=== PATIENT | male | born 1950 | race Caucasian/White ===

== ENCOUNTER 2020-05-08 13:01 | Inpatient (IN) | payer MEDICARE, SELFPAY ==
--- NOTE | ~2020-05-08 | XR_ITS ---
EXAMINATION: XR chest 2V EXAM DATE: 05/08/2020 14:50 INDICATION: Shortness of breath and weakness. TECHNIQUE: Frontal and lateral projections of the chest obtained and reviewed. Comparison is made to prior examination from 07/01/2007. FINDINGS: There is moderate amount of abnormal reticulation, could be edema if acute, interstitial rob ng disease of chronic. Infection also not excludable. Appearance is new compared to 2007. No pneumoth orax or pleural effusion. Cardiomediastinal silhouette is normal. IMPRESSION: Abnormal reticulation, could be edema and/or interstitial lung disease. Infection not ex cludable. Reviewed, dictated and finalized at location A. L [employer]ODU[employer] FAB[employer]IC[employer]SEMBLER IMPRESSION: Abnormal reticulation, could be edema and/or interstitial lung dis ease. Infection not excludable.
[2020-05-08 13:08] VITALS: BP 148/70; PULSE 64; RESP 22; TEMP 36.6; O2SAT 91
--- NOTE | 2020-05-08 15:08 | ED.SOB ---
HPI - SOB/Dyspnea General Chief Complaint: Shortness of Breath/Dyspnea Stated Complaint: PATTERSON, Cough/body aches Time Seen by Provider: 05/08/20 14:49 History of Present Illness HPI Narrative: Cough, SOB and headache for about 10 days. Negative COVID test 5 days ago. Symptoms not improving. He is a daily smoker. No known history of respiratory disease. Related Data Home Medications Medication Instructions Recorded Confirmed albuterol sulfate [ProAir HFA] 2 puff INHALATION QID PRN 05/08/20 05/08/20 benzonatate 100 mg PO BID PRN 05/08/20 05/08/20 cefprozil 500 mg PO BID 05/08/20 05/08/20 propranolol 80 mg PO BID 05/08/20 05/08/20 Allergies Allergy/AdvReac Type Severity Reaction Status Date / Time No Known Allergies Allergy NONE Verified 05/08/20 20:07 Review of Systems Review of Systems: All systems reviewed & are unremarkable except as noted in HPI and below Constitutional: Constitutional: Reports fatigue, Denies fever(s) and Reports weakness Cardiovascular: Cardiovascular: Reports chest pain Respiratory: Respiratory: Reports cough and Reports dyspnea Gastrointestinal: Gastrointestinal: Denies abdominal pain Comments: loss of appetite Genitourinary: Genitourinary: Denies dysuria Neurologic: Denies confusion and Reports weakness PMFSH Past Medical History Medical History Amputation of digit of left hand HTN (hypertension) Family History Family History Sibling Leukemia Social History Social History Smoking packs per day: 1 Smoking cigarettes per day: 20.0 Years smoked: 45 Smoking pack-years: 45.00 Smoking status: Heavy tobacco smoker Tobacco type: cigarettes Alcohol intake: current Drinks per week: 1 Substance use: never Substance use type: does not use Gender identity (if verbalized by the patient): Male Spiritual care concerns: No Exam Const: General: no acute distress, alert and ill appearing Nutritional Appearance: well nourished Orientation/consciousness: patient oriented x3 HENMT: Head: normal to inspection Neck: Neck: normal visual inspection Resp: Effort & Inspection: tachypneic Auscultation: rhonchi Cardio: Rate: regular rate Rhythm: regular rhythm GI: GI Palp: Yes Soft to palpation and No Tenderness to palpation present (GI) Skin: General skin exam: normal color Neuro: General: patient oriented x3 and moves all extremities Speech: normal speech Extrem: General: normal to inspection and no edema Course Vital Signs Vital signs: Vital Signs Temperature 36.6 C 05/08/20 13:08 Pulse Rate 64 05/08/20 13:08 Respiratory Rate 22 H 05/08/20 13:08 Blood Pressure 148/70 H 05/08/20 13:08 Pulse Oximetry 91 05/08/20 13:08 Temperature 36.4 C 05/10/20 06:00 Pulse Rate 60 05/10/20 12:26 Respiratory Rate 18 05/10/20 12:26 Blood Pressure 135/51 L 05/10/20 06:00 Pulse Oximetry 98 05/10/20 09:32 MDM - SOB/Dyspnea MDM Narrative Medical decision making narrative: Infiltrate on x-ray. Intermittent hypoxia. Significant elevation in WBCs. He will need admission for respiratory failure and pneumonia. Differential Diagnosis Differential diagnosis: Likely acute exacerbation of chronic obstructive airways disease and community acquired pneumonia Medical Records Attestation: I reviewed the patient's medical records. Lab Data Attestation: I reviewed the patient's lab results. Result diagrams: 05/10/20 06:02 05/10/20 06:02 Labs: Lab Results 05/08/20 05/08/20 05/08/20 Range/Units 15:38 15:38 15:38 WBC 15.1 H (4.5-10.0) K/mm3 RBC 4.72 (4.6-6.20) M/mm3 Hgb 17.0 (14.0-18.0) g/dL Hct 49.8 (42.0-52.0) % MCV 105.5 H (80-100) fl MCH 36.0 H (26-34) pg MCHC 34.1 (32-36) g/dl RDW 13.8 (11.5-14.5)
[2020-05-08] MEDS: ALBUTEROL SULFATE (*SP) AEROSOL 1 PUFF 6 PUFF INHALATION (15:25)
--- NOTE | 2020-05-08 15:32 | PC.NURSE ---
Addendum entered by Stacey Lopez RN 05/08/20 16:14: respiratory now at bedside for MDI. Original Note: patient resting on stretcher. here with cough and fatigue. SL inserted. 2nd set of blood cultures drawn and lactic.
[2020-05-08 15:46] LABS: Basophils Absolute Auto 0.1 K/mm3 (0.0-0.1); Basophils Percent Auto 0.9 % (0.2-1.2); Eosinophils Absolute Auto 3.7 K/mm3 (0-0.3); Eosinophils Percent Auto 24.7 % (0-4.4); Hematocrit 49.8 % (42.0-52.0); Immature Granulocyte Absolute 0.17 K/mm3 (0.00-0.031); Immature Granulocyte Percent A 1.1 % (0-0.5); Lymphocytes Absolute Auto 2.43 K/mm3 (0.9-3.2); Lymphocytes Percent Auto 16.1 % (18.3-44.2); Mean Corpuscular HGB Conc 34.1 g/dl (32-36); Mean Corpuscular Volume 105.5 fl (80-100); Monocytes Absolute Auto 0.9 K/mm3 (0.1-0.6); Monocytes Percent Auto 6.1 % (2.6-8.5); Neutrophils Absolute Auto 7.7 K/mm3 (1.3-6.7); Neutrophils Percent Auto 51.1 % (45.5-73.1); Platelet Count Result 398 k/mm3 (150-375); Red Blood Count 4.72 M/mm3 (4.6-6.20); Red Cell Distribution Width 13.8 % (11.5-14.5); White Blood Count 15.1 K/mm3 (4.5-10.0)
[2020-05-08 15:59] LABS: Alanine Aminotransferase 109 U/L (4-50); Albumin Level 3.4 g/dL (3.5-5.1); Alkaline Phosphatase 178 U/L (38-126); Anion Gap 6 mmol/L (8-16); Aspartate Amino Transferase 48 U/L (17-59); Bilirubin,Total 0.6 mg/dL (0.2-1.3); Blood Urea Nitrogen 17 mg/dL (9-20); CRP 7.7 mg/dL (<1.0); Calcium 9.2 mg/dL (8.4-10.2); Carbon Dioxide 29 mmol/L (22-30); Chloride 101 mmol/L (98-107); Estimated CRCL calculation 81 ml/min; Estimated Glomerular Filt Rate > 60; Glucose 126 mg/dL (75-110); Potassium 4.5 mmol/L (3.4-5.0); Sodium 136 mmol/L (137-145)
[2020-05-08 16:00] VITALS: PULSE 64; RESP 22; O2SAT 91
[2020-05-08 16:02] LABS: Prothrombin Time 14.1 Seconds (11.1-14.7)
[2020-05-08 16:03] LABS: Partial Thromboplastin Time 26.3 SECONDS (22.3-36.8)
[2020-05-08 16:09] LABS: NT Pro B Type Natriuretic Pept 2330 PG/ML (5-100); Troponin I < 0.012 ng/mL (0.000-0.034)
[2020-05-08 17:21] VITALS: BP 147/57; PULSE 61; RESP 20; O2SAT 91
[2020-05-08] MEDS: FUROSEMIDE INJ 40 MG/4 ML VIAL IV PUSH (17:49)
[2020-05-08 19:45] VITALS: BP 144/73; PULSE 58; RESP 20; TEMP 36.4; O2SAT 92; BMI 31.0
--- NOTE | 2020-05-08 21:17 | PM.IMHP ---
H&P: HPI History of Present Illness Date/Time: 05/08/20 21:17 Chief complaint: Acute respiratory failure with hypoxia Narrative: This is a pleasant 69-year-old obese male with known past medical history of hypertension who presented to the hospital with poorly productive cough, increased shortness of breath, and diffuse headache for about 10 days now. He mentions that today decided come to the hospital because shortness of breath was very severe and he was starting to experience discomfort on both sides of his ribcage with his cough. The patient apparently tested negative for COVID about 5 days ago. He is known to smoke 1 pack of cigarettes daily. On further questioning tonight he denies any recent fevers, chills, nausea, vomiting, chest pain, abdominal discomfort, diarrhea, dysuria, hematuria, or rectal bleeding. Routine labs were obtained in the emergency room and demonstrated elevated white count of 15,100. Chest x-ray revealed abnormal reticulation. the patient was swabbed for domingo virus and admitted to the hospital for acute respiratory failure although he has not required any supplemental oxygen at all. Antibiotics and bronchodilators have been ordered for the patient. No other complaints tonight. Review of Systems Review of Systems: All systems reviewed & are unremarkable except as noted in HPI and below PMFSH Past Medical History Medical History Amputation of digit of left hand HTN (hypertension) Family History Family History Sibling Leukemia Social History Social History Smoking packs per day: 1 Smoking cigarettes per day: 20.0 Years smoked: 45 Smoking pack-years: 45.00 Smoking status: Heavy tobacco smoker Tobacco type: cigarettes Alcohol intake: current Drinks per week: 1 Substance use: never Substance use type: does not use Gender identity (if verbalized by the patient): Male Spiritual care concerns: No Comments past surgical hx - amputation of left hand index and middle digit. Meds Home Medications and Allergies Home Medications Medication Instructions Recorded Confirmed Type albuterol sulfate [ProAir HFA] 2 puff INHALATION QID PRN 05/08/20 05/08/20 History benzonatate 100 mg PO BID PRN 05/08/20 05/08/20 History cefprozil 500 mg PO BID 05/08/20 05/08/20 History propranolol 80 mg PO BID 05/08/20 05/08/20 History Allergies Allergy/AdvReac Type Severity Reaction Status Date / Time No Known Allergies Allergy NONE Verified 05/08/20 20:07 Vital Signs Vital Signs - 24 hr 05/08/20 13:08 05/08/20 16:00 05/08/20 17:21 Temperature 36.6 C Pulse Rate 64 64 61 Respiratory Rate 22 H 22 H 20 Blood Pressure 148/70 H 147/57 H Pulse Oximetry 91 91 91 Exam Const: General: cooperative, no acute distress, alert and awake Nutritional Appearance: obese Orientation/consciousness: patient oriented x3 HENMT: Head: normal to inspection General nose exam: Normal external nose present Face and sinus: normal facial exam Mouth: Yes Normal oral and palatal mucosa present and Yes oropharynx normal Eyes: Pupils: Equal, round and reactive pupils present EOM: EOMs intact bilaterally Neck: Neck: supple and no JVD Thyroid: thyroid normal Lymphatic: lymphadenopathy not noted Resp: Effort & Inspection: normal respiratory effort Auscultation: rhonchi ( scattered) Cardio: Rate: regular rate Rhythm: regular rhythm Heart sounds: no murmurs GI: Inspection: normal to inspection Auscultation: normal bowel sounds Skin: General skin exam: normal color and no rashes or lesions noted Neuro: General: patient oriented x3 Cranial nerves: Yes CN's II-XII intact bilaterally and Yes Equal, round and reactive pupils present Speech: normal speech Motor exam (neuro): 5/5 motor strength present throughout Sensory Exam
[2020-05-08] MEDS: methylPREDNISolone SOD SUCC 125 MG VIAL 60 MG IV PUSH (22:05)
[2020-05-08 22:29] LABS: Influenza Control Positive
[2020-05-09] VITALS (11 sets, daily range): BP systolic 121–150; BP diastolic 52–63; PULSE 49–67; RESP 16–20; TEMP 35.9–36.4; O2SAT 92–99
[2020-05-09] MEDS: methylPREDNISolone SOD SUCC 125 MG VIAL 60 MG IV PUSH ×2 (05:00→12:16)
[2020-05-09 06:50] LABS: Basophils Percent Auto 0.3 % (0.2-1.2); Eosinophils Absolute Auto 0.1 K/mm3 (0-0.3); Eosinophils Percent Auto 0.7 % (0-4.4); Hematocrit 43.8 % (42.0-52.0); Hemoglobin 14.9 g/dL (14.0-18.0); Immature Granulocyte Absolute 0.12 K/mm3 (0.00-0.031); Lymphocytes Absolute Auto 2.29 K/mm3 (0.9-3.2); Lymphocytes Percent Auto 18.9 % (18.3-44.2); Mean Corpuscular Hemoglobin 35.4 pg (26-34); Mean Platelet Volume 10.3 fl (7.4-10.4); Monocytes Absolute Auto 0.3 K/mm3 (0.1-0.6); Monocytes Percent Auto 2.5 % (2.6-8.5); Neutrophils Absolute Auto 9.3 K/mm3 (1.3-6.7); Neutrophils Percent Auto 76.6 % (45.5-73.1); Platelet Count Result 414 k/mm3 (150-375); Red Blood Count 4.21 M/mm3 (4.6-6.20); Red Cell Distribution Width 13.3 % (11.5-14.5); White Blood Count 12.1 K/mm3 (4.5-10.0)
[2020-05-09 07:44] LABS: Anion Gap 5 mmol/L (8-16); Blood Urea Nitrogen 22 mg/dL (9-20); Calcium 8.8 mg/dL (8.4-10.2); Carbon Dioxide 31 mmol/L (22-30); Chloride 99 mmol/L (98-107); Estimated CRCL calculation 92 ml/min; Estimated Glomerular Filt Rate > 60; Glucose 188 mg/dL (75-110); Magnesium 2.2 mg/dL (1.6-2.3); Potassium 4.6 mmol/L (3.4-5.0); Sodium 135 mmol/L (137-145)
[2020-05-09] MEDS: ALBUTEROL SULFATE (*SP) AEROSOL 1 PUFF 2 PUFF INHALATION (09:39)
--- NOTE | 2020-05-09 13:10 | PM.IMPN ---
Progress Note: A&P Assessment and Plan (1) Pneumonia: Qualifiers: Pneumonia type: due to unspecified organism Laterality: bilateral Lung location: lower lobe of lung Qualified Code(s): J18.9 - Pneumonia, unspecified organism Code(s): J18.9 - Pneumonia, unspecified organism Status: Acute Assessment and Plan: Suspected bacterial pneumonia, COVID negative. Continue antibiotics with azithromycin and Rocephin. Continue supportive care with Tylenol for fevers, supplemental oxygen as needed, Mucinex. Incentive spirometry. (2) Suspected 2019 novel coronavirus infection: Code(s): Z20.828 - Contact with and (suspected) exposure to other viral communicable diseases Status: Ruled-out Assessment and Plan: Ruled out. COVID negative. Discontinue droplet isolation. (3) Leukocytosis: Qualifiers: Leukocytosis type: unspecified Qualified Code(s): D72.829 - Elevated white blood cell count, unspecified Code(s): D72.829 - Elevated white blood cell count, unspecified Status: Acute Assessment and Plan: Suspect secondary to respiratory infection. Improving today. Will monitor. (4) HTN (hypertension): Qualifiers: Hypertension type: unspecified Qualified Code(s): I10 - Essential (primary) hypertension Code(s): I10 - Essential (primary) hypertension Status: Chronic Assessment and Plan: Blood pressure is variable, last 143/53. Home propranolol held due to sinus bradycardia with which he is asymptomatic. Monitor BP and adjust treatment as needed. (5) Tobacco dependence: Code(s): F17.200 - Nicotine dependence, unspecified, uncomplicated Status: Chronic Assessment and Plan: Smoking cessation advised. Subjective Date/time seen: 05/09/20 1030 Interval history: Mr. Jaffe is a 69yo M admitted for pneumonia. He reports feeling better than when he came in. Still mildly short of breath but improved from days prior. He has a bit of a nonproductive cough. He denies chest pain. Not much of an appetite but tolerated some breakfast without nausea or vomiting. Review of Systems Review of Systems: All systems reviewed & are unremarkable except as noted in HPI and below Exam Narrative: Exam Narrative: General: Male resting comfortably supine in bed in no acute distress. HEENT: Normocephalic, EOMI, oral mucosa moist. Cardiovascular: Rate and rhythm are regular. Telemetry review shows intermittent sinus bradycardia with rates in high 40s bpm. Respiratory: Decreased breath sounds bilaterally. Respirations even and nonlabored. Tolerating room air. Abdomen: Soft, non-tender, non-distended, bowel sounds present. Extremities: Peripheral pulses intact. No edema. Neuro: No focal neurological deficits. Speech is clear. Objective Data Vital Signs Vital Signs: Last Vital Signs Temp 97.6 F 05/09/20 12:00 Pulse 61 05/09/20 12:00 Resp 16 05/09/20 12:00 BP 143/53 H 05/09/20 12:00 Pulse Ox 99 05/09/20 12:00 Intake/Output Intake/Output: Intake & Output 05/06/20 05/07/20 05/08/20 05/09/20 23:59 23:59 23:59 23:59 Intake Total 300 120 Balance 300 120 Meds/Results Medications: Active Medications Generic Name Dose Route Start Last Admin Trade Name Freq PRN Reason Stop Dose Admin Acetaminophen 650 mg 05/08/20 21:25 Acetaminophen 325 Mg Tablet PO Q4H PRN Mild Pain (1-3) or Fever Albuterol 2 puff 05/09/20 09:46 Albuterol Sulfate (*Sp) Inhaler INHALATION QIDRT PRN Shortness Of Breath Albuterol 2 puff 05/09/20 12:00 Albuterol Sulfate (*Sp) Inhaler INHALATION QIDRT [facility] Guaifenesin/Dextromethorphan 5 ml 05/09/20 04:11 Sydniefen
[2020-05-09] MEDS: ALBUTEROL SULFATE (*SP) INHALER 2 PUFF INHALATION ×2 (13:38→21:01)
[2020-05-09 14:03] LABS: SARS-CoV-2 RNA PCR Negative
[2020-05-09] MEDS: FUROSEMIDE INJ 40 MG/4 ML VIAL IV PUSH (16:46)
--- NOTE | 2020-05-09 17:47 | PCRCNOTE ---
Window of time for administration has passed. See next scheduled administration.
[2020-05-09] MEDS: guaiFENesin 600 MG/DEXTROMETHORPHAN 30 MG SR TAB 12 HR 1 TAB PO (21:25)
[2020-05-10] VITALS (8 sets, daily range): BP systolic 135; BP diastolic 51; PULSE 45–64; RESP 16–18; TEMP 36.4; O2SAT 97–98
[2020-05-10 06:45] LABS: Basophils Absolute Auto 0.1 K/mm3 (0.0-0.1); Basophils Percent Auto 0.3 % (0.2-1.2); Eosinophils Absolute Auto 0.4 K/mm3 (0-0.3); Hematocrit 43.1 % (42.0-52.0); Hemoglobin 14.6 g/dL (14.0-18.0); Immature Granulocyte Absolute 0.24 K/mm3 (0.00-0.031); Immature Granulocyte Percent A 1.1 % (0-0.5); Lymphocytes Absolute Auto 2.77 K/mm3 (0.9-3.2); Lymphocytes Percent Auto 12.8 % (18.3-44.2); Mean Corpuscular HGB Conc 33.9 g/dl (32-36); Mean Corpuscular Hemoglobin 34.8 pg (26-34); Mean Corpuscular Volume 102.9 fl (80-100); Mean Platelet Volume 10.3 fl (7.4-10.4); Monocytes Absolute Auto 1.5 K/mm3 (0.1-0.6); Monocytes Percent Auto 7.1 % (2.6-8.5); Neutrophils Absolute Auto 16.7 K/mm3 (1.3-6.7); Neutrophils Percent Auto 76.7 % (45.5-73.1); Platelet Count Result 450 k/mm3 (150-375); Red Blood Count 4.19 M/mm3 (4.6-6.20); Red Cell Distribution Width 13.3 % (11.5-14.5); White Blood Count 21.7 K/mm3 (4.5-10.0)
[2020-05-10 06:52] LABS: Hemoglobin A1C 5.8 % (<5.7)
[2020-05-10 06:55] LABS: Alanine Aminotransferase 80 U/L (4-50); Albumin Level 3.1 g/dL (3.5-5.1); Alkaline Phosphatase 126 U/L (38-126); Anion Gap 5 mmol/L (8-16); Aspartate Amino Transferase 47 U/L (17-59); Bilirubin,Total 0.3 mg/dL (0.2-1.3); Blood Urea Nitrogen 28 mg/dL (9-20); Calcium 9.2 mg/dL (8.4-10.2); Carbon Dioxide 32 mmol/L (22-30); Chloride 100 mmol/L (98-107); Estimated CRCL calculation 82 ml/min; Estimated Glomerular Filt Rate > 60; Glucose 157 mg/dL (75-110); Magnesium 2.4 mg/dL (1.6-2.3); Potassium 4.4 mmol/L (3.4-5.0); Sodium 137 mmol/L (137-145)
[2020-05-10] MEDS: ALBUTEROL SULFATE (*SP) INHALER 2 PUFF INHALATION ×2 (08:56→12:26)
[2020-05-10] MEDS: guaiFENesin 600 MG/DEXTROMETHORPHAN 30 MG SR TAB 12 HR 1 TAB PO (09:29)
--- NOTE | 2020-05-10 11:16 | PM.DS ---
DS: Admitting Diagnosis Admitting Diagnosis Admitting Diagnosis: Acute respiratory failure with hypoxia DS: Discharge Diagnosis Discharge Diagnosis (1) Pneumonia: Qualifiers: Laterality: bilateral Lung location: lower lobe of lung Pneumonia type: due to unspecified organism Qualified Code(s): J18.9 - Pneumonia, unspecified organism Code(s): J18.9 - Pneumonia, unspecified organism Status: Acute Assessment and Plan: Date of Admission 05/08/20 Date of Discharge/DOS 05/10/20 Mr. Jaffe is a pleasant 69yo M with history of tobacco use and hypertension who presented to the ED for evaluation of several days of worsening shortness of breath, cough, and fatigue. CXR showed evidence of possible pneumonia. COVID-19 testing negative. He was not hypoxic nor requiring supplemental oxygenation. He was treated for suspected bacterial pneumonia with IV azithromycin, IV ceftriaxone, and supportive care with albuterol MDI, mucinex, and antipyretics as needed. WBC did trend up prior to discharge which may in-part have been related to IV steroids started in the ED. He was feeling improved and was hemodynamically stable for discharge 05/10/20 with oral antibiotics to complete the course and instructions to follow up with PCP in 1 week. Smoking cessation encouraged. (2) Suspected 2019 novel coronavirus infection: Code(s): Z20.828 - Contact with and (suspected) exposure to other viral communicable diseases Status: Ruled-out Assessment and Plan: Ruled out. COVID negative. Discontinue droplet isolation. (3) Leukocytosis: Qualifiers: Leukocytosis type: unspecified Qualified Code(s): D72.829 - Elevated white blood cell count, unspecified Code(s): D72.829 - Elevated white blood cell count, unspecified Status: Acute Assessment and Plan: Suspect secondary to respiratory infection. Improved then trended up prior to discharge despite his clinical improvement, may have been related to IV solu-medrol. Repeat CBC outpatient and follow up with PCP. (4) HTN (hypertension): Qualifiers: Hypertension type: unspecified Qualified Code(s): I10 - Essential (primary) hypertension Code(s): I10 - Essential (primary) hypertension Status: Chronic Assessment and Plan: Blood pressures were variable. Home propranolol was held due to mild asymptomatic bradycardia, resumed at discharge and follow up with PCP. (5) Tobacco dependence: Code(s): F17.200 - Nicotine dependence, unspecified, uncomplicated Status: Chronic Assessment and Plan: Smoking cessation advised. DS: Summary Time Spent with Patient Time attestation: Total time spent providing and/or coordinating discharge services: 40 minutes Exam Narrative: Exam Narrative: General: Male resting comfortably supine in bed in no acute distress. HEENT: Normocephalic, EOMI, oral mucosa moist. Cardiovascular: Rate and rhythm are regular. Telemetry review shows intermittent sinus bradycardia with rates in high 40s bpm. Respiratory: Decreased breath sounds bilaterally. Respirations even and nonlabored. Tolerating room air. Abdomen: Soft, non-tender, non-distended, bowel sounds present. Extremities: Peripheral pulses intact. No edema. Neuro: No focal neurological deficits. Speech is clear. DS: Data Data Completed and Pending Labs on day of discharge: Last Vital Signs Temp 97.6 F 05/10/20 06:00 Pulse 60 05/10/20 12:26 Resp 18 05/10/20 12:26 BP 135/51 L 05/10/20 06:00 Pulse Ox 98 05/10/20 09:32 ITS Impressions Chest X-Ray 05/08/20 14:57 IMPRESSION: Abnormal reticulation, could be edema and/or interstitial lung disease. Infection not excludable.
[2020-05-11 20:06] LABS: Legionella pneumophila Ag Ur Not Detected (Not Detected)
[2020-05-12 01:42] LABS: Pneumococcal Antigen Urine Not Detected (Not Detected)
== END 2020-05-10 13:45 | disposition home or self-care (01) | DRG 195 ==
LOC: ANHED 14:49 → ANH3MEDSUR 18:53
PROVIDERS: Family Medicine; Physician Assistant; Admitting Provider Family Medicine; Emergency Provider Emergency Medicine; PCP Family Medicine Adolescent Medicine; Visit Provider Internal Medicine
DX: J15.9 Unspecified bacterial pneumonia (principal); Z20.828 Contact with and (suspected) exposure to other viral communicable diseases; D72.829 Elevated white blood cell count, unspecified; I10 Essential (primary) hypertension; F17.210 Nicotine dependence, cigarettes, uncomplicated; Z79.899 Other long term (current) drug therapy
CPT/HCPCS: 36415; 71046; 80048; 80053; 83036; 83735; 83880; 84484; 85025; 85610; 85730; 86140; 87040; 87070; 87205; 87449; 87635; 87804; 87899; 94640; 96365; 96367; 96375; 96376; 99285; A9270; C9803; G0378; J0456; J0696; J1100; J1940; J2930; U0003

== ENCOUNTER 2020-05-29 23:50 | Inpatient (IN) | payer MEDICARE, SELFPAY ==
--- NOTE | ~2020-05-29 | XR_ITS ---
EXAMINATION: XR chest 1V portable DATE: 05/30/2020 00:47 INDICATION: Respiratory failure TECHNIQUE: frontal view of the chest was obtained. COMPARISON: Chest radiograph dated 05/08/2020 FINDINGS: Pulmonary vascular congestion persistent increased interstitial pattern with perihilar and lower lung predominance suggesting mild pulmonary edema. Mild emphysema with peripheral bleb the lateral right upper lung zone. No pneumothorax or pleural effusion. The cardiomediastinal silhouette is normal. Sut ure anchors likely related to prior rotator cuff repair at the left humeral head. IMPRESSION: 1. Unchanged increased interstitial pattern in the perihilar regions and lower lung zones and favor m ild pulmonary edema over pneumonia. 2. Emphysema. Reviewed, dictated and finalized at location A. N INSPECTOR IMPRESSION: 1. Unchanged increased interstitial pattern in the perihilar regions and lower lung zones and favor mild pulmonary edema over pneumonia. 2. Emphysema.
--- NOTE | ~2020-05-29 | XR_ITS ---
EXAMINATION: XR chest 1V portable DATE: 06/01/2020 05:59 INDICATION: Pneumonia. TECHNIQUE: frontal view of the chest was obtained. COMPARISON: Chest radiograph dated 05/30/2020 FINDINGS: Peripheral triangular opacity at the lateral left lower lung zone corresponding to small pericardial fat pad on CT dated 08/30/2008. Improvement in prior pulmonary edema. No pleural effusion or pneumotho rax. The cardiomediastinal silhouette is normal. IMPRESSION: 1. Near complete resolution of prior pulmonary edema. Reviewed, dictated and finalized at location A. INSTALLER
--- NOTE | 2020-05-29 23:53 | ED.URI ---
HPI - URI/Sore Throat General Chief Complaint: Shortness of Breath/Dyspnea Stated Complaint: difficulty breathing Time Seen by Provider: 05/29/20 23:51 Source: patient Mode of arrival: ambulatory Limitations: no limitations History of Present Illness HPI Narrative: Patient is a 69-year-old male with a history of hypertension, recent bacterial pneumonia, who presents for evaluation of shortness of breath. Patient states he became increasingly short of breath over the past 24 to 48 hours. He denies fever, he reports rhinorrhea and congestion. Patient reports increased difficulty with breathing, thus drove himself to the emergency department. At the time of assessment, patient states he generally feels unwell. His oxygen saturation is 47% on room air with a good waveform. He is tachycardic. He is reporting chest tightness and wheezing. He denies chest pain. He denies history of COPD or asthma. Patient states he has decreased his cigarette use. Related Data Home Medications Medication Instructions Recorded Confirmed albuterol sulfate [ProAir HFA] 2 puff INHALATION QID PRN 05/08/20 05/08/20 benzonatate 100 mg PO BID PRN 05/08/20 05/08/20 cefprozil 500 mg PO BID 05/08/20 05/08/20 propranolol 80 mg PO BID 05/08/20 05/08/20 Allergies Allergy/AdvReac Type Severity Reaction Status Date / Time No Known Allergies Allergy NONE Verified 05/08/20 20:07 Review of Systems Review of Systems: Narrative: CONSTITUTIONAL: Reports feeling sweaty EYES: Denies visual changes, redness, or discharge. ENT: Reports rhinorrhea and congestion CARDIOVASCULAR: Reports chest tightness, denies chest pain RESPIRATORY: Reports cough and shortness of breath GASTROINTESTINAL: Denies abdominal pain, nausea, vomiting, or diarrhea. GENITOURINARY: Denies dysuria or hematuria. SKIN: Denies rash or itching. NEUROLOGIC: Denies headache PMFSH Past Medical History Medical History Amputation of digit of left hand HTN (hypertension) Family History Family History Sibling Leukemia Social History Social History Smoking packs per day: 1 Smoking cigarettes per day: 20.0 Years smoked: 45 Smoking pack-years: 45.00 Smoking status: Heavy tobacco smoker Tobacco type: cigarettes Alcohol intake: current Drinks per week: 1 Substance use: never Substance use type: does not use Gender identity (if verbalized by the patient): Male Spiritual care concerns: No Exam Narrative: Exam Narrative: GENERAL: Awake, alert, diaphoretic, unwell appearing, conversant HEAD: Normocephalic, atraumatic. EYES: PERRLA and EOMI. ENT: Nares clear, no rhinorrhea or epistaxis. Mucous membranes moist. NECK: Supple. CHEST: Respiratory distress, tachypneic, hypoxic, oxygen saturation 47% room air, diffuse expiratory wheezing bilaterally HEART: Tachycardic rate, sinus rhythm ABDOMEN:Non distended, non tender EXTREMITIES: Normal range of motion. No edema. SKIN: Cool, clammy, radial pulses 2+ NEURO:No focal deficits. Alert and oriented x3 Course Vital Signs Vital signs: Vital Signs Temperature 37.0 C 05/29/20 23:55 Pulse Rate 108 H 05/29/20 23:55 Respiratory Rate 29 H 05/29/20 23:55 Blood Pressure 193/99 H 05/29/20 23:55 Pulse Oximetry 47 L 05/29/20 23:55 Temperature 37.0 C 05/29/20 23:55 Pulse Rate 70 05/30/20 01:32 Respiratory Rate 27 H 05/30/20 01:32 Blood Pressure 140/77 05/30/20 01:09 Pulse Oximetry 99 05/30/20 01:17 MDM - URI/Sore Throat MDM Narrative Medical decision making narrative: Patient presented for evaluation of shortness of breath. At the time of assessment, patient is in obvious respiratory failure, he is somewhat cyanotic appearing, diaphoretic, tachycardic, tachypneic, oxygen saturation is 47% on room air with a good waveform. Given auditory
[2020-05-29 23:55] VITALS: BP 193/99; PULSE 108; RESP 29; TEMP 37; O2SAT 47
[2020-05-30] VITALS (35 sets, daily range): BP systolic 122–140; BP diastolic 56–77; PULSE 52–106; RESP 18–35; TEMP 35.9–36.6; O2SAT 90–100; BMI 30.9
--- NOTE | 2020-05-30 | ECG_ITS ---
Measurements Intervals [place] Rate: 109 P: 65 ND: 187 QRS: -34 QRSD: 105 T: 65 QT: 327 QTc: 441 Interpretive Statements SINUS TACHYCARDIA VENTRICULAR PREMATURE COMPLEX POSSIBLE LEFT ATRIAL ENLARGEMENT LEFT AXIS DEVIATION INCOMPLETE RIGHT BUNDLE BRANCH BLOCK POOR R WAVE PROGRESSION, ANTERIOR LEADS BASELINE ARTIFACT- AVR, AVL, AVF, V1-V3 ABNORMAL ECG Electronically Signed On 05-30-2020 7:05:40 SORTER/ASSAY TECH by Jeffrey Cates D.O.
[2020-05-30] MEDS: MAGNESIUM SULF 2 GM/WATER 50ML 2 GM/50 ML BAG IVPB (00:12)
[2020-05-30] MEDS: methylPREDNISolone SOD SUCC 125 MG VIAL IV PUSH (00:12)
[2020-05-30] MEDS: SODIUM CHLORIDE 0.9% IV 500 ML 999 ML IV CONT ×2 (00:12→01:23)
[2020-05-30] MEDS: ALBUTEROL SULFATE NEB 2.5 MG/0.5 ML INH 20 MG INHALATION (00:20)
[2020-05-30] MEDS: IPRATROPIUM BR 0.02% INH SOLN 0.5 MG/2.5 ML VIAL 2 MG INHALATION (00:21)
[2020-05-30 00:26] LABS: Alveolar/Arterial O2 Gradient 173.8 mmHg; Carboxyhemoglobin 2.9 % THb (0-2.0); Fractional Inspired Oxygen 60 %; HCO3 ABG 25.9 mEq/l (22.0-26.0); Methemoglobin ABG 0.3 %THb (0-1.5); Oxygen Content ABG 22.6 %vol (16.0-22.0); Oxygen Saturation ABG 98.9 % (95.0-100.0); Oxyhemoglobin 95.6 % THb (90.0-100.0); PO2 FiO2 Ratio Arterial Blood 2.98 %; Reduced Hemoglobin 1.2 %THb (0-5.0); Total Hemoglobin 16.6 g/dL (12.0-18.0); pH ABG 7.198 (7.350-7.450)
[2020-05-30 00:27] LABS: Basophils Absolute Auto 0.1 K/mm3 (0.0-0.1); Basophils Percent Auto 0.4 % (0.2-1.2); Eosinophils Absolute Auto 4.1 K/mm3 (0-0.3); Eosinophils Percent Auto 16.7 % (0-4.4); Hematocrit 49.5 % (42.0-52.0); Hemoglobin 16.6 g/dL (14.0-18.0); Immature Granulocyte Absolute 0.09 K/mm3 (0.00-0.031); Immature Granulocyte Percent A 0.4 % (0-0.5); Lymphocytes Absolute Auto 8.05 K/mm3 (0.9-3.2); Mean Corpuscular HGB Conc 33.5 g/dl (32-36); Mean Corpuscular Hemoglobin 35.5 pg (26-34); Mean Platelet Volume 9.9 fl (7.4-10.4); Monocytes Absolute Auto 2.2 K/mm3 (0.1-0.6); Monocytes Percent Auto 9.2 % (2.6-8.5); Neutrophils Absolute Auto 9.8 K/mm3 (1.3-6.7); Neutrophils Percent Auto 40.3 % (45.5-73.1); Platelet Count Result 325 k/mm3 (150-375); Red Blood Count 4.67 M/mm3 (4.6-6.20); Red Cell Distribution Width 12.7 % (11.5-14.5); White Blood Count 24.4 K/mm3 (4.5-10.0)
[2020-05-30 00:27] LABS: Device NON-INVASIVE VENT; Modified Allen's Test Pass; Non-Invasive Expiratory Pressure 5 CMH2O; Non-Invasive Inspiratory Pressure 12 CMH2O; Non-Invasive Vent Rate 4 /MIN; PCO2 ABG 68.2 mmHg (35.0-45.0); Site Drawn LEFT RADIAL
[2020-05-30 00:49] LABS: Atypical Lymphocytes Present; Platelet Estimate Adequate (Adequate)
[2020-05-30 01:03] LABS: Lactic Acid Reflex 4.4 mmol/L (0.7-2.1)
[2020-05-30 01:20] LABS: Prothrombin Time 13.5 Seconds (11.1-14.7)
[2020-05-30 01:23] LABS: Anion Gap 5 mmol/L (8-16); Blood Urea Nitrogen 14 mg/dL (9-20); Calcium 8.8 mg/dL (8.4-10.2); Carbon Dioxide 26 mmol/L (22-30); Chloride 102 mmol/L (98-107); Estimated CRCL calculation 91 ml/min; Estimated Glomerular Filt Rate > 60; Glucose 159 mg/dL (75-110); Potassium 4.2 mmol/L (3.4-5.0); Sodium 133 mmol/L (137-145)
[2020-05-30 02:06] LABS: Alanine Aminotransferase 23 U/L (4-50); Albumin Level 3.7 g/dL (3.5-5.1); Alkaline Phosphatase 91 U/L (38-126); Aspartate Amino Transferase 29 U/L (17-59); Bilirubin,Total 0.8 mg/dL (0.2-1.3)
[2020-05-30 02:07] LABS: CRP 3.7 mg/dL (<1.0)
[2020-05-30 02:08] LABS: Troponin I 0.012 ng/mL (0.000-0.034)
[2020-05-30 02:12] LABS: NT Pro B Type Natriuretic Pept 933 PG/ML (5-100)
--- NOTE | 2020-05-30 03:00 | ADMGEN ---
This patient, Kevin Jaffe, was admitted to IMU Room 207-01. Patient/family oriented to hospital policies and general routines including ID bracelet, bed and alarms, visiting hours, pain management, procedures, bathroom and other care routines, personal items, smoking policy, room service/diet, and visiting hours. Information on how to activate the Rapid Response Team has been discussed. Patient/Family are encouraged to report perceived risks to care and to ask questions if they do not understand what they are told or what they should do. Report by Javon and arrived at 2:30am.
[2020-05-30 03:20] LABS: Reflex Lactic Acid Yes or No Add Lactic
--- NOTE | 2020-05-30 03:50 | PM.IMHP ---
H&P: HPI History of Present Illness Date/Time: 05/30/20 03:50 Chief complaint: Acute respiratory failure, Pneumonia, Sepsis Narrative: This is a pleasant 69-year-old obese male with known past medical history of hypertension who is known to me from a recent admission last month for pneumonia and now presented to the hospital for acute onset of severe shortness of breath. He describes feeling well until yesterday when he started to develop worsening shortness of breath. He has had a sporadic nonproductive cough and congestion. Associated symptoms include increased work of breathing, wheezing, and diaphoresis. He denies any fevers, chills, chest pain, sore throat, headache, nausea, vomiting, abdominal pain, dysuria, hematuria, or focal neurological deficits. He continues to smoke about 1/2 ppd which is down from 1 ppd. On arrival to the ER the patient was found to be in acute respiratory failure with hypoxia and saturating in the low 80s on room air. He was quickly put on Bipap. ABG was obtained which demonstrated acute respiratory failure with hypercapnia. Routine labs demonstrated leukocytosis of 24,400 and an elevated lactic acid of 4.4. CXR showed cardiomegaly and bilateral pulmonary edema. He was treated with 2 liters of NS IV Bolus, IV antiboitics, bronchodilators, as well as solumedrol. On my encounter with the patient he states that he feels much better now and is tolerating the Bipap well. He has no other complaints. The patient was swabbed again for COVID-19. Review of Systems Review of Systems: All systems reviewed & are unremarkable except as noted in HPI and below PMFSH Past Medical History Medical History Amputation of digit of left hand HTN (hypertension) Family History Family History Sibling Leukemia Social History Social History Smoking packs per day: 0.5 Smoking cigarettes per day: 10.0 Years smoked: 50 Smoking pack-years: 25.00 Smoking status: Current every day smoker Tobacco type: cigarettes Alcohol intake: current Drinks per week: 3 Substance use: never Substance use type: does not use Gender identity (if verbalized by the patient): Male Spiritual care concerns: No Comments Past surgical history is reviewed and noncontributory. Meds Home Medications and Allergies Home Medications Medication Instructions Recorded Confirmed Type propranolol 80 mg PO BID 05/08/20 05/30/20 History Allergies Allergy/AdvReac Type Severity Reaction Status Date / Time No Known Allergies Allergy NONE Verified 05/08/20 20:07 Vital Signs Vital Signs - 24 hr 05/29/20 23:55 05/30/20 00:02 05/30/20 00:10 Temperature 37.0 C Pulse Rate 108 H 103 H Respiratory Rate 29 H 33 H Blood Pressure 193/99 H Pulse Oximetry 47 L 97 97 05/30/20 00:15 05/30/20 00:17 05/30/20 00:33 Temperature Pulse Rate 103 H 106 H 91 Respiratory Rate 33 H 35 H Blood Pressure Pulse Oximetry 98 98 05/30/20 00:45 05/30/20 01:00 05/30/20 01:09 Temperature Pulse Rate 90 85 86 Respiratory Rate 34 H 25 H 23 H Blood Pressure 140/77 Pulse Oximetry 98 97 98 05/30/20 01:17 05/30/20 01:32 05/30/20 01:58 Temperature Pulse Rate 92 70 71 Respiratory Rate 19 27 H 24 H Blood Pressure 137/71 Pulse Oximetry 99 99 05/30/20 02:36 05/30/20 02:49 Temperature 36.4 C L Pulse Rate 88 87 Respiratory Rate 22 H Blood Pressure 135/69 Pulse Oximetry 99 Exam Const: General: cooperative, alert, awake and ill appearing chronically Nutritional Appearance: obese Orientation/consciousness: patient oriented x3 HENMT: Head: normal to inspection General nose exam: Normal external nose present Face and sinus: normal facial exam Mouth: Yes Normal oral and palatal mucosa present and Yes oropharynx normal Eyes: Pupi
--- NOTE | 2020-05-30 04:03 | ECHO_ITS ---
Patient Info Name: Kevin Jaffe Age: 69 years : 1950 Gender: Male Ht: 70 in Wt: 216 lbs BSA: 2.23 m2 HR: 62 bpm BP: 139 / 69 mmHg Heart Rhythm: Sinus Rhythm Technical Quality: Fair Exam Date: 05/30/2020 3:52 PM Exam Location: [facility] Exam Room: 207 Patient Status: Inpatient Admit Date: 05/30/2020 Staff Ordering Physician: Ladarius Valadez MD Suction Operator: Gretchen Ross RCS Attending Provider: David Dias MD Referring Physician: Allyson DENNY; Exam Type: CA echo doppler color flow Study Info Complete two-dimensional, color flow and Doppler transthoracic echocardiogram is performed. Summary 1. Complete two-dimensional, color flow and Doppler transthoracic echocardiogram is performed. 2. Normal left ventricular size, with borderline concentric hypertrophy. Overall good left ventricular systolic function with estimated ejection fraction 60-65%. Probable hypokinesis of the basal inferior segment. Grade 1 diastolic dysfunction is present. 3. Left atrial chamber dimension is mildly enlarged. 4. No pulmonary hypertension, estimated pulmonary arterial systolic pressure is 28 mmHg. 5. No significant valve disease. 6. Normal sinus rhythm. Left Ventricle Left ventricular chamber dimension is normal. Left ventricular systolic function is normal, estimated at 60-65%. There is mildly increased left ventricular wall thickness. Left ventricular septal wall motion is normal. The left ventricular diastolic function is grade I diastolic dysfunction. Right Ventricle Right ventricular chamber dimension is normal. Right ventricular systolic function is normal. Left Atria Left atrial chamber dimension is mildly enlarged. Right Atria Right atrial chamber dimension is normal. Aortic Valve The aortic valve is trileaflet. There is mild aortic valve sclerosis. There is no aortic valve stenosis. There is no aortic valve regurgitation. Pulmonic Valve The pulmonic valve is normal. There is no pulmonic valve stenosis. There is no pulmonic regurgitation. Mitral Valve The mitral valve has normal leaflets. There is no mitral valve stenosis. There is no mitral valve regurgitation. Tricuspid Valve The tricuspid valve leaflets are normal. There is no significant tricuspid valve stenosis. There is trace tricuspid valve regurgitation. No pulmonary hypertension, estimated pulmonary arterial systolic pressure is 28 mmHg. Pericardium/Pleural The pericardium appears normal. There is no pericardial effusion. Inferior Vena Cava Normal inferior vena cava with >50% collapse upon inspiration consistent with Empty right atrial pressure, 5 mmHg. Aorta The aortic root size at the sinus of Valsalva is normal. The prox ascending aorta size is normal. Left Ventricular Outflow Tract Name Value Normal LVOT 2D LVOT Diameter 2.0 cm LVOT Doppler LVOT Peak Gradient 5 mmHg LVOT Mean Gradient 3 mmHg LVOT VTI 25 cm LVOT VTI/AV VTI Ratio 0.6 LVOT Stroke
[2020-05-30 04:10] LABS: Alveolar/Arterial O2 Gradient 142.3 mmHg; Base Excess ABG -1.1 mEq/l (+/-2.0); Fractional Inspired Oxygen 50 %; HCO3 ABG 26.7 mEq/l (22.0-26.0); Oxygen Content ABG 20.9 %vol (16.0-22.0); Oxygen Saturation ABG 98.7 % (95.0-100.0); Oxyhemoglobin 96.6 % THb (90.0-100.0); PCO2 ABG 56.7 mmHg (35.0-45.0); PO2 ABG 150.4 mmHg (80.0-100.0); PO2 FiO2 Ratio Arterial Blood 3.01 %; Total Hemoglobin 15.2 g/dL (12.0-18.0)
[2020-05-30 04:12] LABS: Device BIPAP; Expiratory Pressure 5 cmH2O; Inspiratory Pressure 12 cmH2O; Modified Allen's Test Pass; Site Drawn RIGHT RADIAL
[2020-05-30 04:27] LABS: Lactic Acid 0.6 mmol/L (0.7-2.1)
[2020-05-30] MEDS: methylPREDNISolone SOD SUCC 125 MG VIAL 60 MG IV PUSH ×4 (05:39→23:53)
[2020-05-30 08:11] LABS: Alveolar/Arterial O2 Gradient 123.7 mmHg; Base Excess ABG 0.8 mEq/l (+/-2.0); Device NON-INVASIVE VENT; Fractional Inspired Oxygen 50 %; HCO3 ABG 28.1 mEq/l (22.0-26.0); Modified Allen's Test Pass; Oxygen Content ABG 21.4 %vol (16.0-22.0); Oxyhemoglobin 97.3 % THb (90.0-100.0); PCO2 ABG 55.3 mmHg (35.0-45.0); PO2 ABG 170.6 mmHg (80.0-100.0); PO2 FiO2 Ratio Arterial Blood 3.41 %; Site Drawn RIGHT RADIAL; Total Hemoglobin 15.4 g/dL (12.0-18.0); pH ABG 7.324 (7.350-7.450)
[2020-05-30 08:12] LABS: Non-Invasive Expiratory Pressure 5 CMH2O; Non-Invasive Inspiratory Pressure 16 CMH2O; Non-Invasive Vent Rate 18 /MIN
[2020-05-30] MEDS: IPRATROPIUM BR 0.02% INH SOLN 0.5 MG/2.5 ML VIAL INHALATION ×3 (09:06→20:25)
[2020-05-30] MEDS: ALBUTEROL SULFATE NEB 2.5 MG/0.5 ML INH 5 MG INHALATION ×3 (09:06→20:25)
[2020-05-30] MEDS: PROPRANOLOL HCL 40 MG TABLET 80 MG PO ×2 (09:15→20:20)
[2020-05-30] MEDS: ENOXAPARIN 40 MG/0.4 ML SYRINGE SUB-Q (12:26)
--- NOTE | 2020-05-30 13:18 | PM.IMPN ---
Progress Note: A&P Assessment and Plan (1) Acute respiratory failure with hypoxia and hypercarbia: Code(s): J96.01 - Acute respiratory failure with hypoxia; J96.02 - Acute respiratory failure with hypercapnia Status: Acute Assessment and Plan: ABG on admission 7./179 on BiPAP. CXR showing diffuse abnormal reticulation but unclear if new or old. Acute respiratory failure may be secondary to flash pulmonary edema vs. pneumonia vs emphysema vs COVID. Repeat ABG 7./170. BiPAP removed and able to be weaned to 2L NC. Toelrating this well. Continue Bipap at night and with naps and prn for now. Continue solumedrol and nebs. Continue abx. No lasix have been given but feel pulm edema less likely. COVID test pending (2) Severe sepsis: Code(s): A41.9 - Sepsis, unspecified organism; R65.20 - Severe sepsis without septic shock Status: Acute Assessment and Plan: Source of sepsis appears to be pulmonary. Blood and sputum cultures ordered. Continue IV antibiotics. (3) Leukocytosis: Qualifiers: Leukocytosis type: unspecified Qualified Code(s): D72.829 - Elevated white blood cell count, unspecified Code(s): D72.829 - Elevated white blood cell count, unspecified Status: Acute Assessment and Plan: WBC 24K on admission. Secondary to sepsis and possible pneumonia. Follow (4) Suspected 2019 novel coronavirus infection: Code(s): Z20.828 - Contact with and (suspected) exposure to other viral communicable diseases Status: Acute Assessment and Plan: Continue droplet isolation. Contact precautions. COVID-19 results pending. (5) HTN (hypertension): Qualifiers: Hypertension type: unspecified Qualified Code(s): I10 - Essential (primary) hypertension Code(s): I10 - Essential (primary) hypertension Status: Chronic Assessment and Plan: BP stable and well controlled. Monitor blood pressure. Continue home propranolol. (6) Tobacco dependence: Code(s): F17.200 - Nicotine dependence, unspecified, uncomplicated Status: Chronic Assessment and Plan: The patient has been educated about the benefits of smoking cessation. (7) DVT prophylaxis: Code(s): Z29.9 - Encounter for prophylactic measures, unspecified Status: Acute Assessment and Plan: Lovenox Subjective Date/time seen: 05/30/20 13:18 Interval history: Date of service 05/30 69yo male with tobacco use and hypertension here for acute respiratory distress. Patient able to come off of his BiPAP earlier this morning. He is down to 2 L. He denies feeling short of breath at rest. No chest pain or abdominal pain. No nausea or vomiting. Exam Narrative: Exam Narrative: AF 96.6 127/57 61 22 94% 2L Gen - NARD sitting up in bed Chest -a few scattered expiratory rhonchi appreciated otherwise distant breath sounds. Normal respiratory rate. No conversational dyspnea. CV - RRR S1/S2; Tele showing no significant dysrhythmias Abd - Soft, NT/ND, Positive BS Ext - No pedal edema Psych - Nml mood and affect; alert and appropriate Skin - Warm and dry Objective Data Vital Signs Vital Signs: Vital Signs - 24 hr 05/29/20 23:55 05/30/20 00:02 05/30/20 00:10 Temperature 98.6 F Pulse Rate 108 H 103 H Respiratory Rate 29 H 33 H Blood Pressure 193/99 H Pulse Oximetry 47 L 97 97 05/30/20 00:15 05/30/20 00:17 05/30/20 00:33 Temperature Pulse Rate 103 H 106 H 91 Respiratory Rate 33 H 35 H Blood Pressure Pulse Oximetry 98 98 05/30/20 00:45 05/30/20 01:00 05/30/20 01:09 Temperature Pulse Rate 90 85 86 Respiratory Rate 34 H 25 H 23 H Blood Pressure 140/77 Pulse Oximetry 98 97 98 05/30/20 01:17 05/30/20 01:32 05/30/20 01:58 Temperature Pulse Rate 92 70 71 Respiratory Rate 19 27 H 24 H Blood Pressure 137/71 Pulse Oximetry 99 99 05/30/20 02:30 05/30/20 02:36 05/30/20 0
[2020-05-30 14:21] LABS: SARS-CoV-2 RNA PCR Negative
[2020-05-30] MEDS: guaiFENesin/DEXTROMETHORPHAN 10 ML UDC PO (20:22)
[2020-05-31] VITALS (15 sets, daily range): BP systolic 121–138; BP diastolic 47–60; PULSE 50–94; RESP 18–28; TEMP 36.1–36.6; O2SAT 93–98
[2020-05-31] MEDS: IPRATROPIUM BR 0.02% INH SOLN 0.5 MG/2.5 ML VIAL INHALATION ×3 (02:13→13:38)
[2020-05-31] MEDS: ALBUTEROL SULFATE NEB 2.5 MG/0.5 ML INH 5 MG INHALATION ×3 (02:13→13:38)
[2020-05-31 05:01] LABS: Basophils Percent Auto 0.1 % (0.2-1.2); Eosinophils Percent Auto 0.1 % (0-4.4); Hematocrit 41.3 % (42.0-52.0); Hemoglobin 13.9 g/dL (14.0-18.0); Immature Granulocyte Absolute 0.08 K/mm3 (0.00-0.031); Immature Granulocyte Percent A 0.5 % (0-0.5); Lymphocytes Absolute Auto 1.96 K/mm3 (0.9-3.2); Lymphocytes Percent Auto 12.5 % (18.3-44.2); Mean Corpuscular HGB Conc 33.7 g/dl (32-36); Mean Corpuscular Hemoglobin 34.8 pg (26-34); Mean Corpuscular Volume 103.3 fl (80-100); Mean Platelet Volume 9.7 fl (7.4-10.4); Monocytes Absolute Auto 0.5 K/mm3 (0.1-0.6); Monocytes Percent Auto 3.2 % (2.6-8.5); Neutrophils Absolute Auto 13.1 K/mm3 (1.3-6.7); Neutrophils Percent Auto 83.6 % (45.5-73.1); Platelet Count Result 267 k/mm3 (150-375); Red Cell Distribution Width 12.4 % (11.5-14.5); White Blood Count 15.7 K/mm3 (4.5-10.0)
[2020-05-31 05:17] LABS: Albumin Level 3.5 g/dL (3.5-5.1); Anion Gap 3 mmol/L (8-16); Blood Urea Nitrogen 21 mg/dL (9-20); Calcium 9.2 mg/dL (8.4-10.2); Carbon Dioxide 30 mmol/L (22-30); Chloride 102 mmol/L (98-107); Estimated CRCL calculation 81 ml/min; Estimated Glomerular Filt Rate > 60; Glucose 175 mg/dL (75-110); Magnesium 2.4 mg/dL (1.6-2.3); Phosphorus 2.8 mg/dL (2.5-4.5); Potassium 4.6 mmol/L (3.4-5.0); Sodium 135 mmol/L (137-145)
[2020-05-31] MEDS: methylPREDNISolone SOD SUCC 125 MG VIAL 60 MG IV PUSH ×4 (06:04→23:51)
[2020-05-31 06:20] LABS: Folic Acid 11.6 ng/mL (2.76->20)
[2020-05-31] MEDS: PROPRANOLOL HCL 40 MG TABLET 80 MG PO ×2 (09:31→21:01)
[2020-05-31] MEDS: ENOXAPARIN 40 MG/0.4 ML SYRINGE SUB-Q (09:31)
[2020-05-31] MEDS: guaiFENesin/DEXTROMETHORPHAN 10 ML UDC PO (09:37)
--- NOTE | 2020-05-31 09:42 | PM.IMPN ---
Progress Note: A&P Assessment and Plan (1) Acute respiratory failure with hypoxia and hypercarbia: Code(s): J96.01 - Acute respiratory failure with hypoxia; J96.02 - Acute respiratory failure with hypercapnia Status: Acute Assessment and Plan: ABG on admission 7./68/179 on BiPAP. CXR showing diffuse abnormal reticulation but unclear if new or old. Acute respiratory failure may be secondary to flash pulmonary edema vs. pneumonia vs emphysema. COVID negative. Repeat ABG 7.32/55/170 on 05/30. BiPAP removed and able to be weaned to 2L NC. No BiPAP last night. Will continue Bipap at night and with naps and prn for now. Continue Solu-Medrol and nebs. Continue abx. No lasix have been given but feel pulm edema less likely. Repeat CXR in the morning (2) Severe sepsis: Code(s): A41.9 - Sepsis, unspecified organism; R65.20 - Severe sepsis without septic shock Status: Acute Assessment and Plan: Source of sepsis appears to be pulmonary. Blood and sputum cultures ordered. Continue IV antibiotics. (3) Leukocytosis: Qualifiers: Leukocytosis type: unspecified Qualified Code(s): D72.829 - Elevated white blood cell count, unspecified Code(s): D72.829 - Elevated white blood cell count, unspecified Status: Acute Assessment and Plan: WBC 24K on admission. Secondary to sepsis and possible pneumonia. WBC better today. Follow (4) Suspected 2019 novel coronavirus infection: Code(s): Z20.828 - Contact with and (suspected) exposure to other viral communicable diseases Status: Acute Assessment and Plan: COVID-19 negative. Stop droplet isolation and contact precautions. (5) HTN (hypertension): Qualifiers: Hypertension type: unspecified Qualified Code(s): I10 - Essential (primary) hypertension Code(s): I10 - Essential (primary) hypertension Status: Chronic Assessment and Plan: BP stable and well controlled. Monitor blood pressure. Continue home propranolol. (6) Tobacco dependence: Code(s): F17.200 - Nicotine dependence, unspecified, uncomplicated Status: Chronic Assessment and Plan: The patient has been educated about the benefits of smoking cessation. Will provide patch per patient request (7) DVT prophylaxis: Code(s): Z29.9 - Encounter for prophylactic measures, unspecified Status: Acute Assessment and Plan: Lovenox Subjective Date/time seen: 05/31/20 09:42 Interval history: Date of service 05/31 69yo male with tobacco use and hypertension here for acute respiratory distress. Patient did not wear BiPAP last night. Slept okay. No CP., SOB okay. Up walking to the BR and sitting in the chair. Dry cough. No n/v. Eating okay Exam Narrative: Exam Narrative: AF 97.3 122/47 52 28 95% 2L Gen - NARD sitting up in bed Chest - diffuse expiratory wheeze anterior and posterior. Normal respiratory rate at the time of my visit. CV - RRR S1/S2; Tele showing no significant dysrhythmias Abd - Soft, NT/ND, Positive BS Ext - No pedal edema Psych - Nml mood and affect Skin - Warm and dry Objective Data Vital Signs Vital Signs: Vital Signs - 24 hr 05/30/20 10:00 05/30/20 12:00 05/30/20 13:14 Temperature 96.6 F L Pulse Rate 55 L 52 L 61 Respiratory Rate 28 H 22 H Blood Pressure 127/57 L Pulse Oximetry 93 94 05/30/20 14:00 05/30/20 14:41 05/30/20 14:52 Temperature Pulse Rate 71 86 92 Respiratory Rate 24 H 24 H Blood Pressure Pulse Oximetry 05/30/20 16:00 05/30/20 17:05 05/30/20 18:00 Temperature 96.6 F L Pulse Rate 59 L 59 L 67 Respiratory Rate 22 H Blood Pressure 127/57 L Pulse Oximetry 91 91 05/30/20 20:00 05/30/20 20:20 05/30/20 20:28 Temperature 97.1 F L Pulse Rate 67 82 Respiratory Rate 20 20 Blood Pressure 138/57 L Pulse Oximetry 90 90 05/30/20 22:00 05/30/20 23:33 05/31/20 00:00 T
[2020-05-31] MEDS: NICOTINE (*PBKC) 14 MG PATCH 1 PATCH TRANSDERM (11:03)
--- NOTE | 2020-05-31 16:25 | PC.NURSE ---
This patient, Kevin Jaffe, was transferred to [[facility] ] on 05/31/20 at 1620. Personal belongings sent with patient. Report given to [Dana ]. Appropriate documentation sent with patient.
--- NOTE | 2020-05-31 23:47 | PCRCNOTE ---
Window of time for administration has passed. See next scheduled administration.
[2020-06-01] VITALS (9 sets, daily range): BP systolic 133–151; BP diastolic 46–63; PULSE 52–80; RESP 16–22; TEMP 36.1–36.6; O2SAT 91–97
[2020-06-01] MEDS: ALBUTEROL SULFATE NEB 2.5 MG/0.5 ML INH 5 MG INHALATION (02:35)
[2020-06-01] MEDS: IPRATROPIUM BR 0.02% INH SOLN 0.5 MG/2.5 ML VIAL INHALATION (02:35)
[2020-06-01 05:46] LABS: Alveolar/Arterial O2 Gradient 111.1 mmHg; Base Excess ABG 0.8 mEq/l (+/-2.0); Device NON-INVASIVE VENT; Fractional Inspired Oxygen 40 %; HCO3 ABG 25.9 mEq/l (22.0-26.0); Modified Allen's Test Pass; Oxygen Content ABG 19.5 %vol (16.0-22.0); Oxygen Saturation ABG 98.5 % (95.0-100.0); Oxyhemoglobin 97.6 % THb (90.0-100.0); PCO2 ABG 42.9 mmHg (35.0-45.0); PO2 ABG 124.8 mmHg (80.0-100.0); PO2 FiO2 Ratio Arterial Blood 3.12 %; Site Drawn LEFT RADIAL; Total Hemoglobin 14.1 g/dL (12.0-18.0); pH ABG 7.398 (7.350-7.450)
[2020-06-01 05:47] LABS: Hematocrit 38.7 % (42.0-52.0); Hemoglobin 13.1 g/dL (14.0-18.0); Mean Corpuscular HGB Conc 33.9 g/dl (32-36); Mean Corpuscular Hemoglobin 34.6 pg (26-34); Mean Corpuscular Volume 102.1 fl (80-100); Platelet Count Result 284 k/mm3 (150-375); Red Blood Count 3.79 M/mm3 (4.6-6.20); Red Cell Distribution Width 12.5 % (11.5-14.5); White Blood Count 16.1 K/mm3 (4.5-10.0)
[2020-06-01 05:47] LABS: Non-Invasive Expiratory Pressure 5 CMH2O; Non-Invasive Inspiratory Pressure 16 CMH2O; Non-Invasive Vent Rate 18 /MIN
[2020-06-01 05:50] LABS: Albumin Level 3.4 g/dL (3.5-5.1); Anion Gap 1 mmol/L (8-16); Blood Urea Nitrogen 26 mg/dL (9-20); Calcium 9.2 mg/dL (8.4-10.2); Carbon Dioxide 34 mmol/L (22-30); Chloride 101 mmol/L (98-107); Estimated CRCL calculation 81 ml/min; Estimated Glomerular Filt Rate > 60; Glucose 161 mg/dL (75-110); Magnesium 2.4 mg/dL (1.6-2.3); Phosphorus 3.6 mg/dL (2.5-4.5); Potassium 4.7 mmol/L (3.4-5.0); Sodium 136 mmol/L (137-145)
[2020-06-01] MEDS: methylPREDNISolone SOD SUCC 125 MG VIAL 60 MG IV PUSH ×4 (06:14→23:58)
[2020-06-01] MEDS: ENOXAPARIN 40 MG/0.4 ML SYRINGE SUB-Q (08:10)
[2020-06-01] MEDS: NICOTINE (*PBKC) 14 MG PATCH 1 PATCH TRANSDERM (08:10)
[2020-06-01] MEDS: PROPRANOLOL HCL 40 MG TABLET 80 MG PO ×2 (08:10→20:07)
--- NOTE | 2020-06-01 10:26 | PCRCNOTE ---
Window of time for administration has passed. See next scheduled administration.
[2020-06-01] MEDS: guaiFENesin/DEXTROMETHORPHAN 10 ML UDC PO (12:54)
--- NOTE | 2020-06-01 16:05 | PM.IMPN ---
Progress Note: A&P Assessment and Plan (1) Acute respiratory failure with hypoxia and hypercarbia: Code(s): J96.01 - Acute respiratory failure with hypoxia; J96.02 - Acute respiratory failure with hypercapnia Status: Acute Assessment and Plan: ABG on admission 7.19/68/179 on BiPAP. CXR showing diffuse abnormal reticulation. COVID negative. Repeat ABG 7.32/55/170 on 05/30. BiPAP removed and able to be weaned to RA. CXR showing resolution of pulmonary edema. Acute respiratory failure secondary to flash pulmonary edema; Pneumonia less likely. Consider also emphysema component. Will continue Bipap at night and with naps and prn for now. Continue Solu-Medrol and nebs. Continue Azithro but stop Rocephin. Check Apnea link tonight. (2) Severe sepsis: Code(s): A41.9 - Sepsis, unspecified organism; R65.20 - Severe sepsis without septic shock Status: Acute Assessment and Plan: Source of sepsis appears to be pulmonary. Blood cultures NGTD. Continue IV antibiotics. (3) Leukocytosis: Qualifiers: Leukocytosis type: unspecified Qualified Code(s): D72.829 - Elevated white blood cell count, unspecified Code(s): D72.829 - Elevated white blood cell count, unspecified Status: Acute Assessment and Plan: WBC 24K on admission. Secondary to sepsis and possible pneumonia. WBC about the same probably related to steroids. (4) Suspected 2019 novel coronavirus infection: Code(s): Z20.828 - Contact with and (suspected) exposure to other viral communicable diseases Status: Acute Assessment and Plan: COVID-19 negative. Stop droplet isolation and contact precautions. (5) HTN (hypertension): Qualifiers: Hypertension type: unspecified Qualified Code(s): I10 - Essential (primary) hypertension Code(s): I10 - Essential (primary) hypertension Status: Chronic Assessment and Plan: BP stable and well controlled. Monitor blood pressure. Continue home propranolol. (6) Tobacco dependence: Code(s): F17.200 - Nicotine dependence, unspecified, uncomplicated Status: Chronic Assessment and Plan: The patient has been educated about the benefits of smoking cessation. (7) DVT prophylaxis: Code(s): Z29.9 - Encounter for prophylactic measures, unspecified Status: Acute Assessment and Plan: Lovneox Subjective Date/time seen: 06/01/20 16:05 Interval history: Date of service 06/01 69yo male with tobacco use and hypertension here for acute respiratory distress. Patient wore BiPAP last night. Still wheezing. No N/V. Exam Narrative: Exam Narrative: AF 97.0 136/46 55 18 95% ra Gen - NARD Chest - bibasilar inspiratory crackles; expiratory wheezes anteriorly. CV - RRR S1/S2,no murmur Abd - Soft, NT/ND, Positive BS Ext - No pedal edema Psych - Nml mood and affect Skin - Warm and dry Objective Data Vital Signs Vital Signs: Vital Signs - 24 hr 05/31/20 21:01 05/31/20 21:53 06/01/20 00:00 Temperature 97.9 F 97.8 F Pulse Rate 66 54 L 52 L Respiratory Rate 20 22 H Blood Pressure 138/59 L 133/54 L Pulse Oximetry 93 91 06/01/20 01:00 06/01/20 02:39 06/01/20 05:16 Temperature 97 F L Pulse Rate 54 L 56 L 52 L Respiratory Rate 19 18 20 Blood Pressure 144/63 H Pulse Oximetry 92 97 06/01/20 05:27 06/01/20 08:00 Temperature Pulse Rate 53 L 55 L Respiratory Rate 18 Blood Pressure 136/46 L Pulse Oximetry 95 Intake/Output Intake/Output: Intake & Output 05/29/20 05/30/20 05/31/20 06/01/20 23:59 23:59 23:59 23:59 Intake Total 3100 2230 240 Output Total 852 125 800 Balance 2248 2105 -560 Meds/Results Medications: Active Medications Generic Name Dose Route Start Last Admin Trade Name Freq PRN Reason Stop Dose Admin Acetaminophen 650 mg 05/30/20 01:33 Acetaminophen 325 Mg Tablet PO Q4H PRN Mild Pain (1-3) or
[2020-06-01] MEDS: ALBUTEROL SULFATE (*SP) AEROSOL 1 PUFF 2 PUFF INHALATION (20:07)
[2020-06-02] MEDS: ALBUTEROL SULFATE (*SP) AEROSOL 1 PUFF 2 PUFF INHALATION ×3 (02:31→14:20)
[2020-06-02] MEDS: methylPREDNISolone SOD SUCC 125 MG VIAL 60 MG IV PUSH ×3 (05:25→17:28)
[2020-06-02 06:00] VITALS: BP 154/63; PULSE 73; RESP 16; TEMP 36.7; O2SAT 95
[2020-06-02] MEDS: ENOXAPARIN 40 MG/0.4 ML SYRINGE SUB-Q (08:44)
[2020-06-02] MEDS: NICOTINE (*PBKC) 14 MG PATCH 1 PATCH TRANSDERM (08:48)
[2020-06-02 09:16] VITALS: PULSE 53
[2020-06-02 09:25] VITALS: PULSE 60
[2020-06-02] MEDS: PROPRANOLOL HCL 40 MG TABLET 80 MG PO (09:25)
[2020-06-02 14:55] VITALS: BP 162/58; PULSE 53; RESP 14; TEMP 36.4; O2SAT 94
--- NOTE | 2020-06-02 15:55 | PM.DS ---
DS: Admitting Diagnosis Admitting Diagnosis Admitting Diagnosis: Acute respiratory failure, Pneumonia, Sepsis DS: Discharge Diagnosis Discharge Diagnosis (1) Acute respiratory failure with hypoxia and hypercarbia: Code(s): J96.01 - Acute respiratory failure with hypoxia; J96.02 - Acute respiratory failure with hypercapnia Status: Acute Assessment and Plan: ABG on admission 7.19/68/179 on BiPAP. CXR showing diffuse abnormal reticulation. COVID negative. Repeat ABG 7.32/55/170 on 05/30. BiPAP removed and able to be weaned to RA. CXR showing resolution of pulmonary edema. Acute respiratory failure secondary to flash pulmonary edema; Pneumonia less likely. Consider also emphysema component and/or NIKOLAY. Apnea Link showing AHI 9.3 and RI 10.7. We continued BiPAP at night and with naps; he was bale to tolerate being off the BiPAP when we did the apnea link. Weaned to room air. Treated with Solu-Medrol, nebs and Azithro. (2) Severe sepsis: Code(s): A41.9 - Sepsis, unspecified organism; R65.20 - Severe sepsis without septic shock Status: Acute Assessment and Plan: Source of sepsis appears to be pulmonary. Blood cultures NGTD. Treated with IV antibiotics. (3) Leukocytosis: Qualifiers: Leukocytosis type: unspecified Qualified Code(s): D72.829 - Elevated white blood cell count, unspecified Code(s): D72.829 - Elevated white blood cell count, unspecified Status: Acute Assessment and Plan: WBC 24K on admission. Secondary to sepsis and possible pneumonia. WBC improved but remained elevated probably related to steroids. (4) Suspected 2019 novel coronavirus infection: Code(s): Z20.828 - Contact with and (suspected) exposure to other viral communicable diseases Status: Acute Assessment and Plan: COVID-19 negative. (5) HTN (hypertension): Qualifiers: Hypertension type: unspecified Qualified Code(s): I10 - Essential (primary) hypertension Code(s): I10 - Essential (primary) hypertension Status: Chronic Assessment and Plan: BP stable and mostly well controlled. We continued home propranolol. (6) Tobacco dependence: Code(s): F17.200 - Nicotine dependence, unspecified, uncomplicated Status: Chronic Assessment and Plan: The patient was educated about the benefits of smoking cessation. DS: Summary Time Spent with Patient Time attestation: Total time spent providing and/or coordinating discharge services: Exam Narrative: Exam Narrative: AF 97.5 162/58 53 14 94% ra Gen - NARD Chest - CTA bilaterally, no wheezing CV - RRR S1/S2 Abd - Soft, NT/ND, Positive BS Ext - No pedal edema Psych - Nml mood and affect Skin - Warm and dry DS: Data Data Completed and Pending Labs on day of discharge: Preliminary micro results at discharge 05/30/20 00:33 Blood Culture - Preliminary Blood 05/30/20 00:13 Blood Culture - Preliminary Blood Discharge Plan Discharge Attending physician on discharge: David Dias Discharging Clinician: David Dias Anticipated Discharge Date/Time: 06/02/20 16:02 Patient Disposition: Home, Self-Care Activity: as tolerated Diet: heart healthy Discharge Instructions: Please avoid large gathering, wear face coverings in public and practice social distance. Do not smoke. Check blood pressure 1 to 2 times a day. Record and bring into your doctor for review. Call your doctor if your blood pressure is greater than 180/110. Please complete your antibiotic course even if you are starting to feel well. Contact your doctor or come to the Emergency Room if you have worsening shortness of breath or other worrisome symptoms. Avoid NSAIDs (ibuprofen, naproxen, Aleve). Tylenol is safe to take. Follow-up with your doctor in 1-2 weeks. Please call for appointment. Follow-up with the engine mechanic. Please call for harsha
--- NOTE | 2020-06-04 12:25 | PC.NURSE ---
Patient's insurance does not cover Spiriva. Dr. Dias ordered Tudorza 400 mcg BID. 1 month supply with 2 RF. Spoke with patient and called into [facility].
== END 2020-06-02 17:48 | disposition home or self-care (01) | DRG 871 ==
LOC: ANHED 05-30 01:40 → ANHIMU 05-30 02:14 → ANH2MED 05-31 16:07
PROVIDERS: Admitting Provider Family Medicine; Emergency Provider Emergency Medicine; PCP Family Medicine Adolescent Medicine; Visit Provider Internal Medicine
DX: A41.9 Sepsis, unspecified organism (principal); J96.01 Acute respiratory failure with hypoxia; J96.02 Acute respiratory failure with hypercapnia; J18.9 Pneumonia, unspecified organism; J81.0 Acute pulmonary edema; R65.20 Severe sepsis without septic shock; G47.33 Obstructive sleep apnea (adult) (pediatric); Z20.828 Contact with and (suspected) exposure to other viral communicable diseases; J43.9 Emphysema, unspecified; F17.200 Nicotine dependence, unspecified, uncomplicated; D72.829 Elevated white blood cell count, unspecified; I10 Essential (primary) hypertension
CPT/HCPCS: 36415; 36600; 71045; 80053; 80069; 82375; 82607; 82746; 82805; 83050; 83605; 83735; 83880; 84484; 85025; 85027; 85610; 85730; 86140; 87040; 87635; 93005; 93306; 94002; 94640; 94762; 96361; 96365; 96367; 96375; 96376; 99291; A9270; C9803; G0378; J0456; J0696; J1650; J2930; J3475; J7040; U0003

== ENCOUNTER 2020-09-07 09:00 | Outpatient (CLI) | payer MEDICARE, SELFPAY ==
--- NOTE | ~2020-09-07 | CT_ITS ---
EXAMINATION: CT lung screening DATE: 09/07/2020 09:22 INDICATION: Z87.891 - Personal history of nicotine dependence TECHNIQUE: Computed tomography (CT) of the chest was performed without intravenous contrast. Addition al 3D reconstructions utilizing coronal maximum intensity projection (MIP) were performed. Automated exposure control and iterative reconstruction technique were employed. The dose-length product was 18 9.67 mGy-cm. COMPARISON: 08/30/2008 FINDINGS: Mild upper lobe and paraseptal predominant emphysema. No significant interval change in multiple vice president global advertising sales vinicius pleural and subpleural predominant small dominant nodules, the largest measuring up to 6 mm in th e bilateral lower lobes. No definitively new or enlarging pulmonary nodules, pneumonia, pulmonary arianna ma or pleural effusion. Heart size is normal. No pericardial effusion. Thoracic aorta is normal in ca liber with mild spondylosis scattered atherosclerotic plaque. No pathologically enlarged thoracic lym phadenopathy. Bilateral gynecomastia. Interval increase in size of a previously 2.0 cm, currently 3.3 cm presternal subcutaneous likely epidermoid cyst and a second previously 7 mm, currently 1.9 cm lik wang epidermoid cyst posterior to the T2 spinous process. Additional previously 1.4 cm likely epidermo id cyst posterior to the T4 spinous process appears similar in size in transaxial dimension but exten ds over a longer craniocaudal distance with increased density and small defect at the skin surface mercedes ggesting interval decompression. IMPRESSION: 1. Lung-RADS category 2: Benign appearance or behavior. Continue annual screening with noncontrast lo w-dose chest CT in 12 months. 2. Interval increase in size of a few subcutaneous likely epidermoid cysts posterior to the upper tho racic spine and anterior to the inferior sternum. Reviewed, dictated and finalized at location B. IMPRESSION: 1. Lung-RADS category 2: Benign appearance or behavior. Continue annual screeni ng with noncontrast low-dose chest CT in 12 months. 2. Interval increase in size of a few subcutaneous likely epidermoid cysts post erior to the upper thoracic spine and anterior to the inferior sternum.
== END 2020-09-07 09:01 | disposition home or self-care (01) ==
LOC: ANHIMG 09:05
PROVIDERS: PCP Family Medicine Adolescent Medicine; Visit Provider Internal Medicine Pulmonary Disease
DX: Z12.2 Encounter for screening for malignant neoplasm of respiratory organs (principal); Z87.891 Personal history of nicotine dependence
CPT/HCPCS: 71271

== ENCOUNTER 2020-10-12 14:25 | Outpatient (CLI) | payer MEDICARE, SELFPAY ==
[2020-10-12 14:50] VITALS: PULSE 54; O2SAT 98
[2020-10-12 14:55] VITALS: PULSE 62; O2SAT 96
[2020-10-12 15:05] VITALS: PULSE 56; O2SAT 98
--- NOTE | 2020-10-12 15:23 | HOMEO2EVAL ---
Evaluation was performed at [facility] Home Oxygen Evaluation RC: Home Oxygen (O2) Evaluation Start: 10/12/20 15:18 Freq: Status: Active Protocol: RPE Activity Type Activity Date Activity User E-Sign Co-Sign Detail Recorded Client Recorded Date Recorded By Document 10/12/20 14:50 DJO [email or web address] 10/12/20 15:23 DJO Document 10/12/20 14:55 DJO [email or web address] 10/12/20 15:23 DJO Document 10/12/20 15:05 DJO [email or web address] 10/12/20 15:23 DJO 10/12/20 10/12/20 10/12/20 14:50 14:55 15:05 Home O2 Evaluation Test Phase Resting Exercise Resting Oxygen Delivery Room Air Room Air Pulse Oximetry (90-100 %) 98 96 98 Pulse Rate (60-100 beats/min) 54 L 62 56 L Treatment Charges O2 Evaluation - Outpatient
--- NOTE | 2020-10-14 13:47 | WPDPFTINT ---
PFT Interpretation This PFT met all criteria for ATS standards and reproducibility FEV/FVC post bronchodilator 74% FEV1 106% FVC 113% TLC 99% RV 86% RV/TLC 32% DLCO 63% when adjusted for alveolar volume but not adjusted for hemoglobin Flow volume loops were normal Impression: No significant obstruction or restriction is present. A mildly decreased diffusion capacity is present. In the absence of anemia or pulmonary hypertension intrinsic lung disease cannot be ruled out. Clinical correlation is advised. PFT Procedure Performed PFT Procedure Performed Spirometry with Pre/Post Bronchodilator Plethysmography (Lung Vol) Diffusing Cap (DLCO) Flow Vol Loop
== END 2020-10-12 14:26 | disposition home or self-care (01) ==
PROVIDERS: PCP Family Medicine Adolescent Medicine; Visit Provider Internal Medicine Pulmonary Disease
DX: R06.00 Dyspnea, unspecified (principal); Z87.891 Personal history of nicotine dependence
CPT/HCPCS: 94060; 94618; 94726; 94729

== ENCOUNTER → 2021-04-30 03:54 | Outpatient (CLI) | payer MEDICARE, SELFPAY ==
[2021-04-30 16:54] LABS: SARS-CoV-2 RNA PCR Negative
== END ==
PROVIDERS: PCP Family Medicine Adolescent Medicine; Visit Provider Family Medicine Adolescent Medicine
DX: R05.9 Cough, unspecified (principal); R09.81 Nasal congestion; Z20.822 Contact with and (suspected) exposure to COVID-19
CPT/HCPCS: C9803; U0003; U0005

== ENCOUNTER 2021-05-04 11:25 | Emergency (ER) | payer MEDICARE, SELFPAY ==
[2021-05-04 11:35] VITALS: BP 152/83; PULSE 74; RESP 16; TEMP 36.3; O2SAT 99
--- NOTE | 2021-05-04 11:44 | ED.GENADULT ---
HPI - General Adult General Chief complaint: Upper Respiratory Infection Stated complaint: chest congestion/cough Source: patient Mode of arrival: ambulatory Limitations: no limitations History of Present Illness HPI narrative: 70 y/o male. PMHx HTN, Tobacco dependence, CAP. Presents to [facility] today with acute complaints of continued nasal congestion and productive cough for the past 5 days. Client explains that he has relayed his issues to his PCP, whom started him on a current Regimen of Doxycycline and Tessalon Perles, however his symptoms have continued. He notes intermittent dyspnea, worse with coughing fit, and improved with Albuterol HFA PRN. Denies fever, chills, myalgia. No sore throat, dysphagia. No chest pain, wheezing, palpitations, edema. He started his Doxycycline 3 days ago, and resumes this regimen. He has had a Covid PCR per his PCP, which is also negative. Client is without additional acute c/o illness upon PE. Related Data Home Medications Medication Instructions Recorded Confirmed propranolol 80 mg PO BID 05/08/20 10/24/20 albuterol sulfate INHALATION 05/04/21 benzonatate mg PO 05/04/21 doxycycline hyclate 05/04/21 Allergies Allergy/AdvReac Type Severity Reaction Status Date / Time No Known Allergies Allergy NONE Verified 10/24/20 09:34 Review of Systems Review of Systems: CONSTITUTIONAL: Denies fever, chills, sweats. EYES: Denies visual changes, redness, discharge. ENT: Positive rhinorrhea, congestion. No sore throat, otalgia. CARDIOVASCULAR: Denies chest pain, palpitations, edema. RESPIRATORY: Cough, intermittent dyspnea with cough. No wheezing. GASTROINTESTINAL: Denies abdominal pain, nausea, vomiting, diarrhea. GENITOURINARY: Denies dysuria, hematuria, abnormal discharge SKIN: Denies rash or itching. MUSCULOSKELETAL: Denies acute back pain, joint pain, or myalgia. NEUROLOGIC: Denies numbness, or focal weakness. PSYCHIATRIC: Denies anxiety or depression. All systems reviewed & are unremarkable except as noted in HPI and below PMFSH Past Medical History Medical History Amputation of digit of left hand HTN (hypertension) Family History Family History Sibling Leukemia Social History Social History Smoking packs per day: 0.5 Smoking cigarettes per day: 10.0 Years smoked: 50 Smoking pack-years: 25.00 Smoking status: Current every day smoker Tobacco type: cigarettes Alcohol intake: current Drinks per week: 3 Substance use: never Substance use type: does not use Gender identity (if verbalized by the patient): Male Spiritual care concerns: No Exam Narrative: GENERAL: This is a well-nourished, well-developed adult, in no apparent distress. HEAD: normocephalic, atraumatic. EYES: PERRL. Sclera clear/white. EARS: External ears normal, auditory canals clear and without drainage, TMs normal. NOSE: External nose normal. Positive Rhinorrhea, no obstruction, nares patent. THROAT: Mucous membranes moist, posterior pharynx is erythematous, without exudates or swelling. NECK: Neck supple, non-tender without lymphadenopathy, masses or thyromegaly. CARDIOVASCULAR: Regular rate and rhythm without murmurs, gallops, or rubs. RESPIRATORY: Upper airway rhonchi, cleared immediately with cough. Breath sounds equal bilaterally. No wheezes, rales, or other adventitious LS. SPO2 99 RA. Speaking in full and fluent sentences, no respiratory distress. GASTROINTESTINAL: Abdomen soft, non-tender, nondistended. Bowel sounds are active. No guarding. SKIN: warm, intact with no suspicious lesions or rash, good texture and turgor. NEURO: Alert, active, and age appropriate. No focal neurologic deficits. Course Vital Signs Vital signs: Vital Signs Temperature 36.3 C L 05/04/21 11:35
== END 2021-05-04 11:47 | disposition home or self-care (01) ==
PROVIDERS: Emergency Provider Nurse Practitioner Adult Health; PCP Family Medicine Adolescent Medicine
DX: J06.9 Acute upper respiratory infection, unspecified (principal); F17.210 Nicotine dependence, cigarettes, uncomplicated; I10 Essential (primary) hypertension; Z89.022 Acquired absence of left finger(s)
CPT/HCPCS: 99213; G0463

== ENCOUNTER → 2022-08-04 11:20 | Outpatient (CLI) | payer MEDICARE, SELFPAY ==
--- NOTE | ~2022-08-04 | XR_ITS ---
EXAMINATION: XR ribs LT 2V w CXR 2V INDICATION: Left-sided chest pain TECHNIQUE: PA and lateral views of the chest and 3 views of the left ribs were obtained. COMPARISON: 06/01/2020 FINDINGS: The lungs are free of acute opacities. No pleural effusion or pneumothorax. There are bridg ing osteophytes at multiple levels in the spine, consistent with diffuse idiopathic skeletal hyperost osis (DISH). Suture anchors are noted in the left humeral head. There is mild irregularity at the ant erolateral aspects of the left seventh, eighth, and ninth ribs. IMPRESSION: 1. Possible nondisplaced fractures at the anterolateral aspects of the left seventh through ninth rib s. Reviewed, dictated and finalized at location B. IMPRESSION: 1. Possible nondisplaced fractures at the anterolateral aspects of the left sev enth through ninth ribs.
== END ==
PROVIDERS: PCP Family Medicine Adolescent Medicine; Visit Provider Physician Assistant
DX: R07.81 Pleurodynia (principal); R91.8 Other nonspecific abnormal finding of lung field
CPT/HCPCS: 71046; 71100

== ENCOUNTER → 2022-08-05 12:33 | Outpatient (CLI) | payer MEDICARE, SELFPAY ==
--- NOTE | ~2022-08-05 | CT_ITS ---
EXAMINATION: CT diagnostic chest wo con DATE: 08/05/2022 13:04 INDICATION: Left-sided chest pain, possible rib fractures TECHNIQUE: Computed tomography (CT) of the chest was performed without intravenous contrast. The dose -length product (DLP) was 602.34 mGy-cm. Automated exposure control and iterative reconstruction tech ARPU were employed. COMPARISON: 09/07/2020 FINDINGS: There is mild emphysema. Multiple stable bilateral pulmonary nodules are present which ayleen ure up to 6 mm. No pleural effusion or pneumothorax. No pathologically enlarged thoracic lymph nodes are identified. The heart size is normal. Healed left-sided rib fractures are noted. No acute left ri b fracture is seen. Calcifications of the pancreas are consistent with chronic pancreatitis. Bilatera l gynecomastia is noted. There is moderate thoracic spondylosis. Bilateral subcutaneous epidermoid or sebaceous cysts are again seen, which project anterior to the sternum and posteriorly near the thora cic spine, which have slightly increased in size. IMPRESSION: 1. Healed left-sided rib fractures without definite acute left rib fracture seen. 2. Mild emphysema. Reviewed, dictated and finalized at location L. EN YOGURT MAKER IMPRESSION: 1. Healed left-sided rib fractures without definite acute left rib fracture see n. 2. Mild emphysema.
== END ==
PROVIDERS: PCP Physician Assistant; Visit Provider Physician Assistant
DX: R07.81 Pleurodynia (principal); J43.9 Emphysema, unspecified
CPT/HCPCS: 71250

== ENCOUNTER → 2023-03-02 14:37 | Outpatient (CLI) | payer MEDICARE, SELFPAY ==
--- NOTE | ~2023-03-02 | XR_ITS ---
AP view of the pelvis and AP and lateral views of the left hip Clinical history: Pain Findings: No acute fracture or dislocation is seen. Osseous alignment is anatomic. Bilateral hip and SI joint spaces are preserved. Soft tissues are unremarkable. Impression: No significant abnormality is seen. Reviewed, dictated and finalized at [facility]. Impression: No significant abnormality is seen.
== END ==
PROVIDERS: PCP Family Medicine Adolescent Medicine; Visit Provider Nurse Practitioner Family
DX: G89.29 Other chronic pain (principal); M25.552 Pain in left hip
CPT/HCPCS: 73502

== ENCOUNTER 2023-04-17 12:45 | Outpatient (CLI) | payer MEDICARE, SELFPAY ==
--- NOTE | ~2023-04-17 | MR_ITS ---
EXAMINATION: MR hip LT wo con DATE: 04/17/2023 13:45 INDICATION: Chronic left hip pain. TECHNIQUE: Magnetic resonance imaging (MRI) of the left hip was performed without intravenous contras t. COMPARISON: Pelvis and left hip radiographs 03/02/2023 FINDINGS: Bones/cartilage: There is lumbar levocurvature and mild spondylosis. There is mild right hip osteoarthritis. Left hip demonstrates deep partial thickness cartilage loss. There is moderate subchondral edema-like marrow s ignal intensity in superior left acetabulum with small subchondral cysts. Left hip osteophytes are no glenn. Labrum: There is a tear of the left acetabular labrum. Fluid: There is a small left hip joint effusion. There is mild bilateral trochanteric bursitis. Soft tissues: There is mild tendinopathy of the hamstring origins. The iliopsoas tendons are normal. There is moder ate left gluteus minimus tendinopathy . Left gluteus medius tendon is normal. The right gluteal tendo ns are normal. The iliopsoas tendons are normal. IMPRESSION: 1. Moderate left hip osteoarthritis and mild right hip osteoarthritis. 2. Small left hip joint effusion. Reviewed, dictated and finalized at location E.
== END 2023-04-17 12:46 ==
LOC: GOSHIMG 12:46
PROVIDERS: PCP Nurse Practitioner Family; Visit Provider Nurse Practitioner Family
DX: M16.0 Bilateral primary osteoarthritis of hip (principal); M25.452 Effusion, left hip; G89.29 Other chronic pain
CPT/HCPCS: 73721

== ENCOUNTER 2023-05-26 08:12 | Outpatient (CLI) | payer MEDICARE, SELFPAY ==
--- NOTE | ~2023-05-26 | XR_ITS ---
EXAMINATION: XR lg joint inject/asp w image DATE: 05/26/2023 08:54 INDICATION: Left hip osteoarthritis TECHNIQUE: A time-out was performed to verify the patient's name, date of , and procedure to b e performed. The procedure including the risks, benefits, and alternatives was discussed with the pat ient. Risks discussed included bleeding and infection. The patient understood the risks and agreed to proceed. The skin overlying the left hip joint was prepped and draped in usual sterile fashion. An esthetic was administered with 1% lidocaine subcutaneously. A 22 G needle was advanced under fluoros copic guidance into the joint. Injection of 1 mL of Omnipaque 240 confirmed intra-articular position of the needle. Subsequently, injectate consisting of 3 mL of a 2:1 mixture of 0.5% Sensorcaine: 80 mg/mL Depo-Medrol for a total dosage of 80 mg Depo-Medrol was instilled. Washout of contrast was seen confirming intra-articular administration. The needle was removed and the entry site was cleaned and dressed. There were no immediate complications. Fluoroscopy exposure time was 0.1 minutes. The tota l number of images was 1. FINDINGS: Real-time fluoroscopy demonstrates the needle in the left hip joint. Patient's pain prior t o procedure:5/10. Patient's pain following the procedure: 0/10. IMPRESSION: 1. Successful left hip joint injection of local anesthetic and steroid with decrease in the patient's presenting pain. Reviewed, dictated and finalized at location A. PATIONAL HEALTH NURSING DIRECTOR IMPRESSION: 1. Successful left hip joint injection of local anesthetic and steroid with dec rease in the patient's presenting pain.
== END 2023-05-26 08:13 | disposition home or self-care (01) ==
PROVIDERS: PCP Nurse Practitioner Family; Visit Provider Orthopaedic Surgery
DX: M16.12 Unilateral primary osteoarthritis, left hip (principal)
CPT/HCPCS: 20610; 77002; J1040; Q9967

== ENCOUNTER 2023-06-27 15:15 | Emergency (ER) | payer MEDICARE, SELFPAY ==
--- NOTE | ~2023-06-27 | XR_ITS ---
Clinical Indication: Cough PA and lateral views of the chest: Comparison: 08/04/2022 Findings: The lungs are clear, without evidence of focal consolidation or pleural effusion. Cardiome diastinal silhouette is within normal limits. Bones and soft tissues are unremarkable. Impression: Normal chest. Reviewed, dictated and finalized at location . NISTRATIVE OFFICE MANAGER Impression: Normal chest.
[2023-06-27 15:26] VITALS: BP 145/68; PULSE 62; RESP 16; TEMP 36.6; O2SAT 95
--- NOTE | 2023-06-27 15:46 | ED.URI ---
HPI - URI/Sore Throat General Chief Complaint: Upper Respiratory Infection Stated Complaint: Cold symptoms Time Seen by Provider: 06/27/23 15:46 Source: patient, RN notes reviewed and old records reviewed Mode of arrival: ambulatory Limitations: no limitations History of Present Illness HPI Narrative: 72-year-old male presents to the [facility] with complaints of cough symptoms and cold symptoms for 1 month Patient states last time he had a cough this long he had pneumonia States that his sent a min for evaluation and a chest x-ray Related Data Allergies Allergy/AdvReac Type Severity Reaction Status Date / Time No Known Allergies Allergy NONE Verified 06/25/23 11:00 Review of Systems Review of Systems: All systems reviewed & are unremarkable except as noted in HPI and below Constitutional: Constitutional: Reports no additional constitutional complaints Eyes: Eyes: Reports no additional eye complaints ENT: Reports as per HPI Cardiovascular: Cardiovascular: Reports no additional cardiovascular complaints, Denies chest pain and Denies dyspnea Respiratory: Respiratory: Reports as per HPI, Denies chest congestion, Reports cough and Denies dyspnea Gastrointestinal: Gastrointestinal: Reports no additional gastrointestinal complaints, Denies abdominal pain, Denies nausea and Denies vomiting Musculoskeletal: Musculoskeletal: Reports no additional musculoskeletal complaints Integumentary/Breasts: Skin/Breast: Reports system reviewed and no additional complaints, except as docu Neurologic: Reports system reviewed and no additional complaints, except as documented Psychiatric: Psychiatric: Reports no additional psychiatric complaints Allergic/Immunologic: Allergic/Immunologic: Reports no additional allergic/immunologic complaints PMFSH Past Medical History Medical History Amputation of digit of left hand HTN (hypertension) Personal history of colonic polyps Surgical History Surgical History History of surgery on wrist (2007) left ORIF fx Hx of rotator cuff surgery (2016) left Family History Family History Sibling Leukemia Social History Social History Smoking packs per day: 0.5 Smoking cigarettes per day: 10.0 Years smoked: 50 Smoking pack-years: 25.00 Smoking status: Current every day smoker Tobacco type: cigarettes Second hand tobacco smoke exposure: No Alcohol intake: current Drinks per week: 1 Alcohol use details: rarely Substance use: never Substance use type: does not use Lack of Transportation: No Lack of Food: Never True Current Housing: I Have Housing Concerned About Future Housing: No Difficulty Paying Gas/Electric Bills: No Difficulty Paying for Meds: No Currently Unemployed: No Education: Associate Degree Difficulty w/ Childcare or Family Care: No Living arrangements: with family Occupation/Education: retired Gender identity (if verbalized by the patient): Male Spiritual care concerns: No Comments At the time of my signature, I reviewed and agree with the nursing past medical, surgical, social, and family history. There is no relevant family history pertinent to the patient complaint. Exam Const: General: cooperative, healthy appearing, comfortable, no acute distress, well developed, alert and well nourished Nutritional Appearance: well nourished Orientation/consciousness: patient oriented x3 Limitations: no limitations HENMT: Head: normal to inspection Ears: hearing grossly normal bilaterally, external ears normal, TM's normal bilaterally, EAC's normal, mastoids normal and no periauricular adenopathy Face/Nose/Sinus: Normal external nose present, Normal nares present, Normal nasal mucous membranes and turbinates presen
== END 2023-06-27 16:26 | disposition home or self-care (01) ==
PROVIDERS: Emergency Provider Nurse Practitioner; PCP Family Medicine Adolescent Medicine
DX: J40 Bronchitis, not specified as acute or chronic (principal); R09.82 Postnasal drip; I10 Essential (primary) hypertension; F17.210 Nicotine dependence, cigarettes, uncomplicated
CPT/HCPCS: 71046; 99213; G0463

== ENCOUNTER 2023-07-23 01:05 | Day surgery (SDC) | payer MEDICARE, SELFPAY ==
[2023-06-25 11:00] VITALS: BMI 31.6
--- NOTE | 2023-07-21 08:55 | SUR.PREOP ---
Patient called regarding upcoming procedure. Reviewed preop instructions, appointment times, and procedure prep.
--- NOTE | 2023-07-22 15:52 | PM.HPGS ---
History of Present Illness History of Present Illness Consent: Risks, benefits, and alternatives have been discussed and questions answered. Patient agrees to proceed with procedure. Chief complaint: hx of colon polyps Narrative: Kevin Jaffe is a 72 year old male is referred for colon cancer screening. His last colonoscopy was about 6 years ago. He had been found have polyps prior to that. Review of Systems Review of Systems: All systems reviewed & are unremarkable except as noted in HPI and below PMFSH Past Medical History Medical History Amputation of digit of left hand HTN (hypertension) Personal history of colonic polyps Surgical History Surgical History History of surgery on wrist (2007) left ORIF fx Hx of rotator cuff surgery (2016) left Family History Family History Sibling Leukemia Social History Social History Smoking packs per day: 0.5 Smoking cigarettes per day: 10.0 Years smoked: 50 Smoking pack-years: 25.00 Smoking status: Current every day smoker Tobacco type: cigarettes Second hand tobacco smoke exposure: No Alcohol intake: current Drinks per week: 1 Alcohol use details: rarely Substance use: never Substance use type: does not use Lack of Transportation: No Lack of Food: Never True Current Housing: I Have Housing Concerned About Future Housing: No Difficulty Paying Gas/Electric Bills: No Difficulty Paying for Meds: No Currently Unemployed: No Education: Associate Degree Difficulty w/ Childcare or Family Care: No Living arrangements: with family Occupation/Education: retired Gender identity (if verbalized by the patient): Male Spiritual care concerns: No Meds Home Medications and Allergies Home Medications Medication Instructions Recorded Confirmed Type propranolol 80 mg tablet 80 mg PO BID #180 tabs 05/15/23 07/23/23 Rx tamsulosin 0.4 mg capsule 0.4 mg PO DAILY #90 caps 05/15/23 06/25/23 Rx doxycycline monohydrate 100 mg 100 mg PO BID #14 tabs 06/27/23 07/23/23 Rx tablet prednisone 20 mg tablet See Rx Instructions .Route 06/27/23 07/23/23 Rx .COMPLEX #9 tabs Allergies Allergy/AdvReac Type Severity Reaction Status Date / Time No Known Allergies Allergy NONE Verified 07/23/23 08:27 Exam Resp: Auscultation: clear to auscultation bilaterally Cardio: Rate: regular rate Rhythm: regular rhythm GI: GI Palp: Yes Soft to palpation and No Tenderness to palpation present (GI) Assessment and Plan Assessment and plan (1) Colon cancer screening: Code(s): Z12.11 - Encounter for screening for malignant neoplasm of colon Status: Acute Assessment and Plan: Colonoscopy with possible biopsy or polypectomy or cautery or injection of substances.
[2023-07-23 08:31] VITALS: BP 134/63; PULSE 51; RESP 18; TEMP 35.9; O2SAT 99
--- NOTE | 2023-07-23 08:31 | WPDANESEPPF ---
Anes - Initial Pre Proc Eval Procedure: Operation Date: 07/23/23 09:30 Proposed Procedures p Screening Colonoscopy - Laron Rosales MD Date/Time: 07/23/23 08:31 Surgeon: Laron Rosales MD Pre Op Diagnosis: hx of colon polyps Patient Data Age: 72 Gender: M Height: 1.78 m Weight: 100 kg Allergies Allergy/AdvReac Type Severity Reaction Status Date / Time No Known Allergies Allergy NONE Verified 07/23/23 08:27 Home Medications Medication Instructions Recorded Confirmed Type propranolol 80 mg tablet 80 mg PO BID #180 tabs 05/15/23 07/23/23 Rx tamsulosin 0.4 mg capsule 0.4 mg PO DAILY #90 caps 05/15/23 06/25/23 Rx doxycycline monohydrate 100 mg 100 mg PO BID #14 tabs 06/27/23 07/23/23 Rx tablet prednisone 20 mg tablet See Rx Instructions .Route 06/27/23 07/23/23 Rx .COMPLEX #9 tabs Patient hx anesthesia problems: none Family hx anesthesia problems: none Results Review: All pre-operative results and documents have been reviewed as part of the pre-operative evaluation. [facility] Past Medical History Medical History Amputation of digit of left hand HTN (hypertension) Personal history of colonic polyps Surgical History Surgical History History of surgery on wrist (2007) left ORIF fx Hx of rotator cuff surgery (2016) left Family History Family History Sibling Leukemia Social History Social History Smoking packs per day: 0.5 Smoking cigarettes per day: 10.0 Years smoked: 50 Smoking pack-years: 25.00 Smoking status: Current every day smoker Tobacco type: cigarettes Second hand tobacco smoke exposure: No Alcohol intake: current Drinks per week: 1 Alcohol use details: rarely Substance use: never Substance use type: does not use Lack of Transportation: No Lack of Food: Never True Current Housing: I Have Housing Concerned About Future Housing: No Difficulty Paying Gas/Electric Bills: No Difficulty Paying for Meds: No Currently Unemployed: No Education: Associate Degree Difficulty w/ Childcare or Family Care: No Living arrangements: with family Occupation/Education: retired Gender identity (if verbalized by the patient): Male Spiritual care concerns: No Anes - Eval Final PreProcedure Day of Procedure 07/23/23 08:31 Patient weight: obese Heart: regular rate and rhythm Lungs: decreased breath sounds Airway: Mallampati scale class II Neurological: alert and oriented Last oral intake: >/= 8 hours ASA classification: III Emergent: no Anesthetic plan: proceed Anesthesia type and monitoring: general GIVS and standard monitoring Results Review: All pre-operative results and documents have been reviewed as part of the pre-operative evaluation. Informed Consent: The patient's anesthetic plan and its attendant risks and benefits were discussed with the patient/family/POA. Questions were solicited and answers provided to the satisfaction of the patient/family/POA.
[2023-07-23] MEDS: LACTATED RINGERS 1,000 ML 150 ML IV CONT (08:49)
[2023-07-23 09:40] VITALS: BP 115/54; PULSE 57; RESP 24; O2SAT 95
[2023-07-23 09:50] VITALS: BP 117/56; PULSE 69; RESP 17; O2SAT 95
[2023-07-23 10:00] VITALS: BP 132/54; PULSE 57; RESP 20; O2SAT 97
== END 2023-07-23 10:12 | disposition home or self-care (01) ==
PROVIDERS: PCP Family Medicine Adolescent Medicine; Visit Provider Internal Medicine Gastroenterology
PROC: 0DJD8ZZ Inspection of Lower Intestinal Tract, Via Natural or Artificial Opening Endoscopic (ICD-10-PCS; CPT 45378; principal; 2023-07-23 09:30)
DX: Z12.11 Encounter for screening for malignant neoplasm of colon (principal); K63.5 Polyp of colon; I10 Essential (primary) hypertension; F17.210 Nicotine dependence, cigarettes, uncomplicated; E66.9 Obesity, unspecified; Z68.32 Body mass index [BMI] 32.0-32.9, adult; Z79.52 Long term (current) use of systemic steroids; Z98.890 Other specified postprocedural states
CPT/HCPCS: 45385; 45380; 88305; J2001; J2704; J7120

== ENCOUNTER 2023-08-27 13:40 | Outpatient (CLI) | payer MEDICARE, SELFPAY ==
--- NOTE | ~2023-08-27 | XR_ITS ---
EXAMINATION: XR lg joint inject/asp w image DATE: 08/27/2023 14:32 INDICATION: Left hip arthritis with pain TECHNIQUE: A time-out was performed to verify the patient's name, date of , and procedure to b e performed. The procedure including the risks, benefits, and alternatives was discussed with the pat ient. Risks discussed included bleeding and infection. The patient understood the risks and agreed to proceed. The skin overlying the left hip joint was prepped and draped in usual sterile fashion. An esthetic was administered with 1% lidocaine subcutaneously. A 22 G needle was advanced under fluoros copic guidance into the joint. Injection of 1 mL of Omnipaque 240 confirmed intra-articular position of the needle. Subsequently, injectate consisting of 3 mL of a 2:1 mixture of 0.5% bupivacaine: 80 mg/mL Depo-Medrol for a total dosage of 80 mg Depo-Medrol was instilled. Washout of contrast was seen confirming intra-articular administration. The needle was removed and the entry site was cleaned and dressed. There were no immediate complications. Fluoroscopy exposure time was 0.1 minutes. The tota l number of images was 2. FINDINGS: Real-time fluoroscopy demonstrates the needle in the left hip joint. Patient's pain prior t o procedure:5/. Patient's pain following the procedure: 2/. IMPRESSION: 1. Successful left hip joint injection of local anesthetic and steroid with decrease in the patient's presenting pain. Reviewed, dictated and finalized at location A. CENTER TECHNICIAN IMPRESSION: 1. Successful left hip joint injection of local anesthetic and steroid with dec rease in the patient's presenting pain.
== END 2023-08-27 13:41 | disposition home or self-care (01) ==
LOC: ANHIMG 13:41
PROVIDERS: PCP Family Medicine Adolescent Medicine; Visit Provider Orthopaedic Surgery
DX: M16.12 Unilateral primary osteoarthritis, left hip (principal)
CPT/HCPCS: 20610; 77002; J1040; Q9966

== ENCOUNTER 2023-10-07 11:07 | Outpatient (CLI) | payer MEDICARE, SELFPAY ==
--- NOTE | ~2023-10-07 | XR_ITS ---
EXAMINATION: XR_CERV2-3V_CR DATE: 10/07/2023 11:17 INDICATION: Neck pain. TECHNIQUE: 4 views of cervical spine were obtained. COMPARISON: None. FINDINGS: There is 2 mm retrolisthesis of C6 on C7. Vertebral body heights are normal. Vertebral body heights are normal. There is mildly decreased disc height at C5-C6 and moderately decreased disc hei ght at C6-C7. There is multilevel uncovertebral joint osteoarthritis, severe bilaterally at C5-C6 and C6-C7. There is multilevel facet joint osteoarthritis, severe bilaterally at C2-C3, C3-C4, and C4-C5 . There is mild central canal stenosis at C6-C7. No prevertebral soft tissue swelling. IMPRESSION: 1. Moderate cervical spondylosis. Reviewed, dictated and finalized at location E.
== END 2023-10-07 11:08 ==
PROVIDERS: PCP Family Medicine Adolescent Medicine; Visit Provider Nurse Practitioner Family
DX: M47.892 Other spondylosis, cervical region (principal)
CPT/HCPCS: 72040

== ENCOUNTER 2024-06-13 13:46 | Outpatient (CLI) | payer MEDICARE, SELFPAY ==
[2024-06-13 15:06] LABS: Basophils Absolute Auto 0.1 K/mm3 (0.0-0.1); Basophils Percent Auto 0.5 % (0.2-1.2); Eosinophils Absolute Auto 0.3 K/mm3 (0-0.3); Eosinophils Percent Auto 3.5 % (0-4.4); Hematocrit 43.8 % (42.0-52.0); Hemoglobin 14.9 g/dL (14.0-18.0); Immature Granulocyte Absolute 0.03 K/mm3 (0.00-0.031); Immature Granulocyte Percent A 0.3 % (0-0.5); Lymphocytes Absolute Auto 3.21 K/mm3 (0.9-3.2); Lymphocytes Percent Auto 33.5 % (18.3-44.2); Mean Corpuscular Hemoglobin 35.2 pg (26-34); Mean Corpuscular Volume 103.5 fl (80-100); Mean Platelet Volume 9.6 fl (7.4-10.4); Monocytes Percent Auto 10.5 % (2.6-8.5); Neutrophils Absolute Auto 4.9 K/mm3 (1.3-6.7); Neutrophils Percent Auto 51.7 % (45.5-73.1); Platelet Count Result 250 k/mm3 (150-375); Red Blood Count 4.23 M/mm3 (4.6-6.20); Red Cell Distribution Width 12.3 % (11.5-14.5); White Blood Count 9.6 K/mm3 (4.5-10.0)
[2024-06-13 15:19] LABS: Urine Cotinine NEGATIVE
[2024-06-13 15:24] LABS: Hemoglobin A1C 6.4 % (<5.7)
[2024-06-13 15:28] LABS: Albumin Level 4.2 g/dL (3.5-5.1); Anion Gap 2 mmol/L (4-12); Blood Urea Nitrogen 32 mg/dL (9-20); Calcium 9.3 mg/dL (8.4-10.2); Carbon Dioxide 27 mmol/L (22-30); Chloride 107 mmol/L (98-107); Estimated Glomerular Filt Rate > 60; Glucose 144 mg/dL (65-110); Potassium 4.7 mmol/L (3.4-5.0); Sodium 136 mmol/L (137-145)
== END 2024-06-13 13:47 | disposition home or self-care (01) ==
PROVIDERS: PCP Family Medicine Adolescent Medicine; Visit Provider Orthopaedic Surgery
DX: Z01.812 Encounter for preprocedural laboratory examination (principal); M16.12 Unilateral primary osteoarthritis, left hip; Z79.899 Other long term (current) drug therapy
CPT/HCPCS: 80048; 80307; 82040; 83036; 85025; 87081

== ENCOUNTER 2024-06-14 07:37 | Outpatient (CLI) | payer MEDICARE, SELFPAY ==
--- NOTE | ~2024-06-14 | NM_ITS ---
EXAMINATION: NM kathleen stress w perfusion DATE: 06/14/2024 11:08 INDICATION: Abnormal electrocardiogram. Preop. TECHNIQUE: Rest images were obtained following intravenous administration of 11 mCi Tc99m tetrofosmin (Myoview). The patient was infused intravenously with Lexiscan (regadenoson). Then, 33.7 mCi Tc99m t etrofosmin (Myoview) was administered intravenously, and supine and prone stress images were obtained . Data was reconstructed into short axis and horizontal and vertical long axis SPECT images. Gated SP ECT images were also obtained. COMPARISON: None. FINDINGS: There is no definite reversible or fixed perfusion abnormality to suggest ischemia or infar ction. There is no segmental wall motion abnormality. Left ventricular ejection fraction measures 4 7%. IMPRESSION: 1. No definite ischemia or infarct. 2. Left ventricular ejection fraction measuring 47%. Reviewed, dictated and finalized at location A. MARKER
--- NOTE | 2024-06-14 08:30 | EST_ITS ---
Patient Info Name: Kevin Jaffe Age: 73 years : 1950 Gender: Male Ht: 69 in Wt: 235 lbs BSA: 2.32 m2 HR: 47 bpm BP: 151 / 86 mmHg Exam Date: 06/14/2024 9:41 AM Exam Location: Echo Lab Patient Status: Outpatient Admit Date: 06/14/2024 Staff Ordering Physician: Jeffrey Cates DO Attending Provider: Jeffrey Cates DO Exercise Technologist: Joselin Ponce RDCS Exercise Physician: Jeffrey Cates DO Exam Type: CA stress kathleen w NM Study Info A regadenoson stress test was performed. Summary 1. 1. Negative lexiscan stress test for ischemic ST changes by ECG criteria. 2. 2. Baseline hypertension. 3. 3. Nuclear scan to follow and will be reported separately. Please correlate with it. 4. 4. Patient informed of the above results. Protocol: Lexiscan Stress ECG Details Stage: REST Duration (min): 2 min : 35 sec HR (bpm): 48 SBP (mmHg): 151 DBP (mmHg): 86 Stage: REST Duration (min): 12 min : 56 sec HR (bpm): 45 SBP (mmHg): 151 DBP (mmHg): 86 Stage: STAGE 1 Duration (min): 0 min : 59 sec HR (bpm): 59 SBP (mmHg): 164 DBP (mmHg): 64 Stage: RECOVERY Duration (min): 1 min : 0 sec HR (bpm): 57 SBP (mmHg): 164 DBP (mmHg): 64 Stage: RECOVERY Duration (min): 2 min : 0 sec HR (bpm): 59 SBP (mmHg): 164 DBP (mmHg): 64 Stage: RECOVERY Duration (min): 3 min : 0 sec HR (bpm): 56 SBP (mmHg): 141 DBP (mmHg): 73 Stage: RECOVERY Duration (min): 3 min : 8 sec HR (bpm): 56 SBP (mmHg): 141 DBP (mmHg): 73 Rest HR: 45 bpm Peak HR: 65 bpm Rest Sys BP: 151 mmHg Peak Sys BP: 164 mmHg Max Pred HR: 149 bpm % Max Pred HR: 44 % Target HR: 127 bpm Max RPP: 10,660 bpm*mmHg Termination Reason: Completed protocol Cardiac Symptoms: Shortness of breath Total Time: 1 min : 0 sec Rest Hua BP: 86 mmHg Peak Hua BP: 64 mmHg Total Dose: 0.4 mg Resting ECG Sinus bradycardia, IRBBB. Stress ECG No ST changes. Arrhythmias None. Report Signatures
== END 2024-06-14 07:38 | disposition home or self-care (01) ==
PROVIDERS: PCP Family Medicine Adolescent Medicine; Visit Provider Internal Medicine Cardiovascular Disease
DX: Z01.810 Encounter for preprocedural cardiovascular examination (principal); I10 Essential (primary) hypertension
CPT/HCPCS: 78452; 93017; A9502; J2785

== ENCOUNTER 2024-06-20 08:30 | Outpatient (CLI) | payer MEDICARE, SELFPAY ==
--- NOTE | ~2024-06-20 | XR_ITS ---
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 COMPARISON: 02/26/2024 FINDINGS: Alignment is normal. No fracture or suspected osteonecrosis. Mild osteoarthritis at the left hip. Mil d to moderate osteoarthritis at the bilateral sacroiliac joints. IMPRESSION: 1. 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 Reviewed, dictated and finalized at location B. ILE FINISHER
== END 2024-06-20 08:31 | disposition home or self-care (01) ==
LOC: MICIMG 08:32
PROVIDERS: PCP Family Medicine Adolescent Medicine; Visit Provider Orthopaedic Surgery
DX: M16.12 Unilateral primary osteoarthritis, left hip (principal); M46.1 Sacroiliitis, not elsewhere classified
CPT/HCPCS: 73502

== ENCOUNTER 2024-06-20 16:01 | Outpatient (NON) | payer MEDICARE, SELFPAY | END 2024-06-20 16:02 | disposition home or self-care (01) | LOC: ANHLAB 16:08 | PROVIDERS: PCP Family Medicine Adolescent Medicine; Visit Provider Orthopaedic Surgery | DX: L02.91 Cutaneous abscess, unspecified (principal) | CPT/HCPCS: 87070; 87205 ==

== ENCOUNTER 2024-07-18 00:41 | Day surgery (SDC) | payer MEDICARE, SELFPAY ==
--- NOTE | 2024-07-11 10:48 | PC.NURSE ---
Report to the Outpatient Waiting Room, entrance under the green pavilion located off [facility], at time _11:30 AM on date _07/18/24 . Planned Procedure Time: _1:30 PM .? Time changes happen often and if your time is changed the preop area will call you the afternoon before. - You and your visitor will be asked to self-screen and do not enter if you have any COVID symptoms. Please call surgeon if you need to reschedule. - A mask is optional within the hospital at this time. Patients may have clear liquids (water, carbonated beverages, clear teas, apple juice) until 3 hours prior to surgery ( 10:30 AM)with a maximum of 20 ounces. - No food from midnight until time of surgery and no smoking. This includes no chewing gum, candy or mints. - Infants may have breast milk until 4 hours before surgery, infant formula 6 hours prior to surgery. - Children will be allowed to drink immediately following surgery.? If applicable, please bring a bottle or sippy cup to assist with drinking. Juice, water, soda, and popsicles are readily available.? For infants on formula, please bring formula the day of surgery.? Pacifiers are allowed. Take only the following medications with a SIP of water on the morning of surgery: ____PROPRANOLOL DO NOT STOP ANY OF YOUR OTHER PRESCRIPTION MEDICATIONS PRIOR TO SURGERY EXCEPT THE FOLLOWING Medications to discontinue per physician _HOLD ALL VITAMINS 3 DAYS PRE OP Date to take last dose_07/14/24 Please no make-up, nail swedish, hairspray, perfume, deodorant, or body powder the day of surgery.? No jewelry (including any body piercings) or valuables the day of surgery, leave them at home.? Please take a shower or bath the night before, or the morning of, surgery with an antibacterial soap.? Wear comfortable, loose fitting clothing.? Children are encouraged to wear pajamas. - Jewelry must be removed prior to entering the operating room.? Rings and piercings that are not removed may be cut off. - The hospital will not accept responsibility for valuables.? - Please leave all valuables, including medications, at home the day of surgery. If you are going home after surgery, a licensed p d driver must drive you home.? - NO public transportation without another adult if you receive anesthesia. - We recommend that an adult stay with you for 24 hours following discharge. - We also recommend that you do not drive, make important decision, drink alcoholic beverages, or take any drugs that were not prescribed by your health care provider for at least 24 hours after your discharge time. For Pediatric surgeries, we recommend two adults accompany the child home. Follow any additional instructions given to you from your surgeon. Telephone instructions given to _PATIENT and asked if any additional questions and then verbalized understanding. Patient advised to call surgeon office or pre surgery nurse liaison [phone] if any additional questions.
[2024-07-11 10:54] VITALS: BMI 33.7
--- OUTSIDE RECORDS SUMMARY | 2024-07-18 00:49 | XMS_ITS | Clinical Summary ---
Author Organization [facility] [place] [address] 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
--- OUTSIDE RECORDS SUMMARY | 2024-07-18 00:49 | XMS_ITS | Referral Summary ---
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
--- NOTE | 2024-07-18 11:52 | WPDHPUPDATE1 ---
History and Physical Update Update Date/Time: 07/18/24 11:52 History and Physical has been reviewed, including an updated exam of the patient. There are NO changes in the patient's condition. Risks, benefits, and alternatives have been discussed and questions answered. Patient agrees to proceed with procedure. after d/w orthopedic surgeon and pt decision to proceed with exc of previous infected sebaceous cyst in the OR
[2024-07-18 12:45] VITALS: BMI 34.2
[2024-07-18] MEDS: LACTATED RINGERS 1,000 ML 30 ML IV CONT (12:45)
[2024-07-18 12:50] VITALS: BP 149/72; PULSE 50; RESP 16; TEMP 36.4; O2SAT 97
--- NOTE | 2024-07-18 12:52 | P.PNAN_ITS ---
Anes - Initial Pre Proc Eval Procedure: Operation Date: 07/18/24 13:30 Proposed Procedures p Excisional Biopsy of Back Sebaceous Cyst Times Two - Danielle Blandon MD Date/Time: 07/18/24 12:52 Surgeon: Danielle Blandon MD Pre Op Diagnosis: sebaceous cyst on back Patient Data Age: 73 Gender: M Height: 1.78 m Weight: 108.4 kg Last Vital Signs Temp 36.4 C L 07/18/24 12:50 Pulse 50 L 07/18/24 12:50 Resp 16 07/18/24 12:50 BP 149/72 H 07/18/24 12:50 Pulse Ox 97 07/18/24 12:50 Allergies Allergy/AdvReac Type Severity Reaction Status Date / Time No Known Allergies Allergy NONE Verified 07/11/24 10:40 Home Medications ?Medication ?Instructions ?Recorded ?Confirmed ?Type propranolol 80 mg tablet 80 mg PO BID #180 tabs 02/10/24 07/18/24 Rx cyclobenzaprine 10 mg tablet 10 mg PO QHS PRN muscle spasm #30 04/29/24 07/11/24 Rx tabs tamsulosin 0.4 mg capsule See Rx Instructions .Route 05/06/24 07/18/24 Rx .COMPLEX #90 caps vitamins A,C,H-qqbn-ocbegv 2,148 2 tablet PO BID 06/13/24 07/18/24 History mcg-113 mg-45 mg-17.4 mg tablet (PreserVision AREDS) doxycycline hyclate 100 mg capsule 100 mg PO HS 07/11/24 07/18/24 History Patient hx anesthesia problems: none Family hx anesthesia problems: none Results Review: All pre-operative results and documents have been reviewed as part of the pre-op erative evaluation. [facility] Past Medical History Medical History Personal history of colonic polyps Amputation of digit of left hand HTN (hypertension) Surgical History Surgical History Hx of rotator cuff surgery (2016) 2018 left History of surgery on wrist (2007) left ORIF fx Family History Family History Sibling Leukemia Social History Social History Smoking packs per day: 0.5 Smoking cigarettes per day: 10.0 Years smoked: 50 Smoking pack-years: 25.00 Smoking status: Former smoker Tobacco type: cigarettes Second hand tobacco smoke exposure: No Smoking end date: 04/22/24 Additional smoking assessment comments: DENIES ANY FORM OF TOBACCO USE Alcohol intake: current Drinks per week: 1 Alcohol use details: rarely Substance use: never Substance use type: does not use Do You Feel Safe in your Home?: Yes Lack of Transportation: No Lack of Food: Never True Current Housing: I Have Housing Concerned About Future Housing: No Difficulty Paying Gas/Electric Bills: No Difficulty Paying for Meds: No Currently Unemployed: No Education: Bachelor's Degree Difficulty w/ Childcare or Family Care: No Living arrangements: with family Occupation/Education: retired 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 Informed Consent: The patient's anesthetic plan and its attendant risks and benefits were discussed with the patient/family/POA. Questions were solicited and answers provided to the satisfaction of the patient/family/POA.
[2024-07-18] MEDS: BUPIVACAINE/EPINEPHRINE 0.5% 30 ML VIAL INFILTRATE (13:15)
[2024-07-18] MEDS: ceFAZolin 2 GM/D5W 50 ML 2 GM/50 ML BAG IVPB (13:15)
[2024-07-18 14:09] VITALS: BP 118/47; PULSE 50; RESP 16; O2SAT 99
--- NOTE | 2024-07-18 14:13 | W.PM.PROC2 ---
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 The patient also with a 2nd cyst inferior to the chronically infected cyst. Patient treated with antibiotics with resolution of infection, however will need excision prior to hip replacement surgery. Findings sebaceous cysts upper x2, superior cyst measuring approximately 4 x 3 cm, inferior cyst measuring approximately 3 x 3 cm Description of Procedure The patient was taken to the operating room and placed in the lateral position. After adequate induction of MAC anesthesia, the patient was prepped and draped in the normal sterile fashion. A time-out was then done to verify the patient's identity, as well as the procedure being performed. I began by localizing both these areas in the upper back. Once locally anesthetized, I made a elliptical incision to include the opening in the skin of the larger superior cyst. This was taken through the dermis and into the subcutaneous tissue. A 4 x 3 cm sebaceous cyst was encountered. There was no active infection noted, however the cyst was noted to be ruptured. I was able to excised the cyst wall and contents in full. Once completely excised, hemostasis was gained with the Bovie cautery. I then copiously irrigated the cavity. The skin was then closed with interrupted 3-0 nylon sutures in a horizontal mattress fashion. A similar elliptical incision was then made around the inferior cyst, again incorporating the opening in the skin. This was taken through the dermis and into the subcutaneous tissue. A ruptured 3 x 3 cm sebaceous cyst was encountered and excised. Once completely excised, hemostasis was again gained with the Bovie cautery. The cavity was irrigated and no other pathology was noted. This was closed with interrupted 3-0 nylon sutures in a horizontal mattress fashion. Sterile dressing was placed on the wounds. The patient tolerated these procedures well. He be sent to the recovery room in stable condition. Estimated Blood Loss 20 Packing No Pathology Yes Complications No immediate complications Condition Stable Disposition PACU [facility] Billing Surgery - Charge Forward: Surgery Billing
[2024-07-18 14:30] VITALS: BP 138/56; PULSE 51; RESP 16; O2SAT 97
[2024-07-18 15:00] VITALS: BP 158/62; PULSE 45; RESP 16
== END 2024-07-18 15:15 | disposition home or self-care (01) ==
PROVIDERS: PCP Family Medicine Adolescent Medicine; Visit Provider Surgery
PROC: (CPT 11406; principal; 2024-07-18 13:30)
DX: L72.0 Epidermal cyst (principal); I10 Essential (primary) hypertension; E66.9 Obesity, unspecified; Z68.34 Body mass index [BMI] 34.0-34.9, adult; Z98.890 Other specified postprocedural states; Z89.022 Acquired absence of left finger(s); Z86.0100 Personal history of colon polyps, unspecified; Z87.891 Personal history of nicotine dependence; Z80.6 Family history of leukemia
CPT/HCPCS: 11406 ×2; 88305; A9270; J0690; J2250; J2704; J3010; J7120

== ENCOUNTER 2024-09-15 10:09 | Outpatient (CLI) | payer MEDICARE, SELFPAY ==
[2024-09-15 10:41] LABS: Basophils Percent Auto 0.5 % (0.2-1.2); Eosinophils Absolute Auto 0.2 K/mm3 (0-0.3); Eosinophils Percent Auto 2.6 % (0-4.4); Hematocrit 45.3 % (42.0-52.0); Hemoglobin 15.2 g/dL (14.0-18.0); Immature Granulocyte Absolute 0.03 K/mm3 (0.00-0.031); Immature Granulocyte Percent A 0.4 % (0-0.5); Lymphocytes Absolute Auto 1.94 K/mm3 (0.9-3.2); Lymphocytes Percent Auto 23.7 % (18.3-44.2); Mean Corpuscular HGB Conc 33.6 g/dl (32-36); Mean Corpuscular Hemoglobin 34.8 pg (26-34); Mean Corpuscular Volume 103.7 fl (80-100); Mean Platelet Volume 9.6 fl (7.4-10.4); Monocytes Absolute Auto 0.8 K/mm3 (0.1-0.6); Monocytes Percent Auto 9.7 % (2.6-8.5); Neutrophils Absolute Auto 5.2 K/mm3 (1.3-6.7); Neutrophils Percent Auto 63.1 % (45.5-73.1); Platelet Count Result 241 k/mm3 (150-375); Red Blood Count 4.37 M/mm3 (4.6-6.20); Red Cell Distribution Width 12.8 % (11.5-14.5); White Blood Count 8.2 K/mm3 (4.5-10.0)
[2024-09-15 10:47] LABS: Hemoglobin A1C 6.2 % (<5.7)
[2024-09-15 10:52] LABS: Albumin Level 4.4 g/dL (3.5-5.1); Anion Gap 11 mmol/L (4-12); Blood Urea Nitrogen 16 mg/dL (9-20); Calcium 9.6 mg/dL (8.4-10.2); Carbon Dioxide 31 mmol/L (22-30); Chloride 100 mmol/L (98-107); Estimated Glomerular Filt Rate > 60; Glucose 222 mg/dL (65-110); Potassium 4.6 mmol/L (3.4-5.0); Sodium 142 mmol/L (137-145)
[2024-09-15 10:55] LABS: Urine Cotinine NEGATIVE
--- OUTSIDE RECORDS SUMMARY | 2024-09-15 11:16 | XMS_ITS | Referral Summary ---
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
--- OUTSIDE RECORDS SUMMARY | 2024-09-15 11:16 | XMS_ITS | Clinical Summary ---
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
== END 2024-09-15 10:10 | disposition home or self-care (01) ==
LOC: ANHSURGERY 10:14
PROVIDERS: PCP Family Medicine Adolescent Medicine; Visit Provider Orthopaedic Surgery
DX: Z01.812 Encounter for preprocedural laboratory examination (principal); M16.12 Unilateral primary osteoarthritis, left hip
CPT/HCPCS: 80048; 80307; 82040; 83036; 85025; 86850; 86900; 86901; 87081

== ENCOUNTER 2024-09-27 00:17 | Day surgery (SDC) | payer MEDICARE, SELFPAY ==
--- NOTE | 2024-06-13 13:50 | PC.NURSE ---
Report to the Outpatient Waiting Room, entrance under the green pavilion located off [facility], at time 6 am on date __07/04/24 . Planned Procedure Time: __7:30 am .? Time changes happen often and if your time is changed the preop area will call you the afternoon before. - You and your visitor will be asked to self-screen and do not enter if you have any COVID symptoms. Please call surgeon if you need to reschedule. - A mask is optional within the hospital at this time. Patients may have clear liquids (water, carbonated beverages, clear teas, apple juice) until 3 hours prior to surgery( 4:30 am) with a maximum of 20 ounces. - No food from midnight until time of surgery and no smoking. This includes no chewing gum, candy or mints. Take only the following medications with a SIP of water on the morning of surgery: __PROPRANOLOL DO NOT STOP ANY OF YOUR OTHER PRESCRIPTION MEDICATIONS PRIOR TO SURGERY EXCEPT THE FOLLOWING Medications to discontinue per physician HOLD ALL VITAMINS 3 DAYS PRE OP PER ANESTHESIA Date to take last dose 06/30/24 Please no make-up, nail luxembourger, hairspray, perfume, deodorant, or body powder the day of surgery.? No jewelry (including any body piercings) or valuables the day of surgery, leave them at home.? Please take a shower or bath the night before, or the morning of, surgery with an antibacterial soap.? Wear comfortable, loose fitting clothing.? Children are encouraged to wear pajamas. - Jewelry must be removed prior to entering the operating room.? Rings and piercings that are not removed may be cut off. - The hospital will not accept responsibility for valuables.? - Please leave all valuables, including medications, at home the day of surgery. If you are going home after surgery, a licensed wheat combine driver must drive you home.? - NO public transportation without another adult if you receive anesthesia. - We recommend that an adult stay with you for 24 hours following discharge. - We also recommend that you do not drive, make important decision, drink alcoholic beverages, or take any drugs that were not prescribed by your health care provider for at least 24 hours after your discharge time. Follow any additional instructions given to you from your surgeon. VERBAL AND WRITTEN instructions given to ___PATIENT and asked if any additional questions and then verbalized understanding. Patient advised to call surgeon office or pre surgery nurse liaison [phone] if any additional questions.
[2024-06-13 13:53] VITALS: BMI 35.2
[2024-06-13 14:31] VITALS: BP 123/84; PULSE 55; RESP 18; TEMP 36.8; O2SAT 99
--- NOTE | 2024-09-12 11:45 | PC.NURSE ---
Report to the Outpatient Waiting Room, entrance under the green pavilion located off [facility], at time ___6AM____ on date __09/27/24 . Planned Procedure Time: ___7:30 AM .? Time changes happen often and if your time is changed the preop area will call you the afternoon before. - You and your visitor will be asked to self-screen and do not enter if you have any COVID symptoms. Please call surgeon if you need to reschedule. - A mask is optional within the hospital at this time. Patients may have clear liquids (water, carbonated beverages, clear teas, apple juice) until 3 hours prior to surgery ( 4:30 AM) with a maximum of 20 ounces. - No food from midnight until time of surgery and no smoking, or chewing tobacco (or any form of nicotine). No chewing gum, candy or mints. - Take only the following medications with a SIP of water on the morning of surgery: ____PROPRANOLOL DO NOT STOP ANY OF YOUR OTHER PRESCRIPTION MEDICATIONS PRIOR TO SURGERY EXCEPT THE FOLLOWING Hold all vitamins and supplements for 3 days per anesthesiologist.LAST DOSE 09/23/24 Medications to discontinue per physician NONE Please no make-up, nail nepali, hairspray, perfume, deodorant, or body powder the day of surgery.? No jewelry (including any body piercings) or valuables the day of surgery, leave them at home.? Please take a shower or bath the night before, or the morning of, surgery with an antibacterial soap.? Wear comfortable, loose fitting clothing.? Children are encouraged to wear pajamas. - Jewelry must be removed prior to entering the operating room.? Rings and piercings that are not removed may be cut off. - The hospital will not accept responsibility for valuables.? - Please leave all valuables, including medications, at home the day of surgery. If you are going home after surgery, a licensed m48/m60 tank driver must drive you home.? - NO public transportation without another adult if you receive anesthesia. - We recommend that an adult stay with you for 24 hours following discharge. - We also recommend that you do not drive, make important decision, drink alcoholic beverages, or take any drugs that were not prescribed by your health care provider for at least 24 hours after your discharge time. Follow any additional instructions given to you from your surgeon. Telephone instructions given to __PATIENT and asked if any additional questions and then verbalized understanding. Patient advised to call surgeon office or pre surgery nurse liaison [phone] if any additional questions.
[2024-09-12 11:57] VITALS: BMI 35.2
--- NOTE | 2024-09-12 12:03 | PC.NURSE ---
PT STATES SURGERY WAS CANCELLED R/T DRAINING CYST ON BACK. STATES NO LONGER DRAINING ALL HEALED.NO OTHER CHANGE IN HEALTH HX
--- NOTE | 2024-09-26 12:21 | P.HP_ITS ---
H&P: HPI History of Present Illness Date/Time: 09/26/24 12:21 Chief Complaint: Left hip DJD Narrative: 73-year-old male who presents today for a left anterior total hip arthroplasty. Patient has been having pain in symptoms in his left hip for almost 2 years. They are progressively gotten worse. At this point is having symptoms on a daily basis. Symptoms are significant enough that they are keeping him from a daily activities. His pain is in the groin anterior lateral hip with weight- bearing. Patient feels this point is ready proceed with total hip arthroplasty rather than continue nonsurgical treatment. Review of Systems Review of Systems: All systems reviewed & are unremarkable except as noted in HPI and below PMFSH Past Medical History Medical History Personal history of colonic polyps Amputation of digit of left hand HTN (hypertension) Surgical History Surgical History Hx of rotator cuff surgery (2016) 2018 left History of surgery on wrist (2007) left ORIF fx Family History Family History Sibling Leukemia Social History Social History Smoking packs per day: 0.5 Smoking cigarettes per day: 10.0 Years smoked: 50 Smoking pack-years: 25.00 Smoking status: Former smoker Tobacco type: cigarettes Second hand tobacco smoke exposure: No Smoking end date: 04/22/24 Additional smoking assessment comments: DENIES ANY FORM OF TOBACCO USE Alcohol intake: current Drinks per week: 1 Substance use: never Substance use type: does not use Do You Feel Safe in your Home?: Yes Lack of Transportation: No Lack of Food: Never True Current Housing: I Have Housing Concerned About Future Housing: No Difficulty Paying Gas/Electric Bills: No Difficulty Paying for Meds: No Currently Unemployed: No Education: Bachelor's Degree Difficulty w/ Childcare or Family Care: No Living arrangements: with family Occupation/Education: retired 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 Gender identity (if verbalized by the patient): Male Spiritual care concerns: No Meds Home Medications and Allergies Home Medications ?Medication ?Instructions ?Recorded ?Confirmed ?Type propranolol 80 mg tablet 80 mg PO BID #180 tabs 02/10/24 09/12/24 Rx tamsulosin 0.4 mg capsule See Rx Instructions .Route 05/06/24 08/02/24 Rx .COMPLEX #90 caps vitamins A,C,D-dyvg-bfsfcq 2,148 2 tablet PO BID 06/13/24 08/02/24 History mcg-113 mg-45 mg-17.4 mg tablet (PreserVision AREDS) Allergies Allergy/AdvReac Type Severity Reaction Status Date / Time No Known Allergies Allergy NONE Verified 09/12/24 11:39 Exam Narrative: 73-year-old male alert pleasant. He is 5 ft 10 and 241 lb BMI is 34.5. Left hip flexes to 120 causing him anterior lateral hip pain, internal rotation to 10? causing anterior lateral hip pain external rotation of 30? without discomfo rt. Stinchfield maneuver is negative. He has normal abduction strength lateral position. Nontender over the greater trochanter. 2+ dorsalis pedis pulse in left foot. Trace edema both lower extremities. No numbness or tingling in either lower extremity. Skin around the hip and groin crease are normal. Resp: Auscultation: clear to auscultation bilaterally Cardio: Rate: regular rate Rhythm: regular rhythm Assessment and Plan Assessment and plan (1) Primary osteoarthritis of left hip: Code(s): M16.12 - Unilateral primary osteoarthritis, left hip Status: Acute Plan 73-year-old male who has moderately severe osteoarthritis left hip with significant symptoms daily. At this point patient is having significant problems with activities of daily living due to the pain in the hip. He would rather proceed with total hip arthroplasty at this point rather than continue nonsurgical treatment. Surgical procedures well as the risks and complications were discussed in detail all questions were answered we will proceed. Patient will see his primary care doctor for pre-surgical clearance. He has seen cardiology and had a stress test done late last year which showed ejection fraction 47%. There was no reversible defect or fixed perfusion defect seen on the stress test. He has been cleared from cardiology. Patient's nasal swab was negative. Hemoglobin 15.2 and platelets 241. Chem panel is within normal limits creatinine 1.15.
[2024-09-27] VITALS (16 sets, daily range): BP systolic 151–181; BP diastolic 45–89; PULSE 51–62; RESP 12–18; TEMP 35.7–36.6; O2SAT 94–100
--- NOTE | ~2024-09-27 | XR_ITS ---
XR hip LT 1V w AP pelvis Ordering provider: Mesfin Bolden MD History: . POST OP LEFT COLEMAN . Comparison: June 20, 2024 FINDINGS: BONES: No acute fracture or dislocation. HIP JOINT SPACES: Left hip arthroplasty. Mild to moderate osteoarthritic changes of the right hip. PUBIC SYMPHYSIS: Normal. SOFT TISSUES: Normal. IMPRESSION: No acute osseous abnormality. Left hip arthroplasty. Reviewed, dictated and finalized at location A.
--- NOTE | ~2024-09-27 | XR_ITS ---
EXAMINATION: XR surgery orthopedic DATE: 09/27/2024 11:44 INDICATION: Intraoperative evaluation during left total hip arthroplasty TECHNIQUE: Frontal view of the left hip was obtained. COMPARISON: None. FINDINGS: Noncemented left total hip arthroplasty which is in near-anatomic alignment. The acetabular component is affixed with at least a single screw. No fractures in the visualized bones. Expected gas in the s oft tissues at the operative bed. IMPRESSION: 1. Expected appearance during left total hip arthroplasty. Reviewed, dictated and finalized at location A.
--- OUTSIDE RECORDS SUMMARY | 2024-09-27 00:21 | XMS_ITS | Clinical Summary ---
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
--- OUTSIDE RECORDS SUMMARY | 2024-09-27 00:21 | XMS_ITS | Referral Summary ---
Author Organization [facility] [place] [address] [facility] [address] Address [address] [place] [address] Care Team Providers Care C.O.D. 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 Audit Clerk Relationship Specialty Start Date End Date Henry Wharton MD [address] [place] [address] PCP - General Family Medicine 05/30/20
[2024-09-27] MEDS: ACETAMINOPHEN 500 MG TABLET 1000 MG PO (06:25)
[2024-09-27] MEDS: VANCOMYCIN 1,750 MG/NS 500 ML 1,750 MG/500 ML BAG 250 MG IVPB (06:30)
[2024-09-27] MEDS: TRANEXAMIC ACID 1,000MG/ISO100 1,000 MG/100 ML BAG 200 MG IVPB (06:30)
[2024-09-27] MEDS: LACTATED RINGERS 1,000 ML 30 ML IV CONT ×2 (06:30→12:04)
[2024-09-27 06:38] LABS: Glucose Point of Care 156 mg/dl (65-105)
--- NOTE | 2024-09-27 07:03 | WPDHPUPDATE1 ---
History and Physical Update Update Date/Time: 09/27/24 07:03 History and Physical has been reviewed, including an updated exam of the patient. There are NO changes in the patient's condition. Risks, benefits, and alternatives have been discussed and questions answered. Patient agrees to proceed with procedure.
--- NOTE | 2024-09-27 07:20 | P.PNAN_ITS ---
Anes - Initial Pre Proc Eval Procedure: Operation Date: 09/27/24 07:30 Proposed Procedures p Left Total Hip Arthroplasty, Anterior Approach - Mesfin Bolden MD Date/Time: 09/27/24 07:20 Surgeon: Mesfin Bolden MD Pre Op Diagnosis: oa left hip Patient Data Age: 73 Gender: M Height: 1.75 m Weight: 107.5 kg Last Vital Signs Temp 97.2 F L 09/27/24 06:10 Pulse 59 L 09/27/24 06:10 Resp 18 09/27/24 06:10 BP 177/72 H 09/27/24 06:10 Pulse Ox 95 09/27/24 06:10 O2 Del Method Room Air 09/27/24 06:10 Allergies Allergy/AdvReac Type Severity Reaction Status Date / Time No Known Allergies Allergy NONE Verified 09/27/24 06:41 Home Medications ?Medication ?Instructions ?Recorded ?Confirmed ?Type propranolol 80 mg tablet 80 mg PO BID #180 tabs 02/10/24 09/27/24 Rx tamsulosin 0.4 mg capsule See Rx Instructions .Route 05/06/24 09/27/24 Rx .COMPLEX #90 caps vitamins A,C,E-djnm-bmsgsu 2,148 2 tablet PO BID 06/13/24 09/27/24 History mcg-113 mg-45 mg-17.4 mg tablet (PreserVision AREDS) Laboratory Tests 09/27/24 06:35 POC Capillary Glucose 156 H mg/dl (65-105) Patient hx anesthesia problems: none Family hx anesthesia problems: none Results Review: All pre-operative results and documents have been reviewed as part of the pre- operative evaluation. [facility] Past Medical History Medical History Personal history of colonic polyps Amputation of digit of left hand HTN (hypertension) Surgical History Surgical History Hx of rotator cuff surgery (2016) 2018 left History of surgery on wrist (2007) left ORIF fx Family History Family History Sibling Leukemia Social History Social History Smoking packs per day: 0.5 Smoking cigarettes per day: 10.0 Years smoked: 50 Smoking pack-years: 25.00 Smoking status: Former smoker Tobacco type: cigarettes Second hand tobacco smoke exposure: No Smoking end date: 04/22/24 Additional smoking assessment comments: DENIES ANY FORM OF TOBACCO USE Alcohol intake: current Drinks per week: 1 Substance use: never Substance use type: does not use Do You Feel Safe in your Home?: Yes Lack of Transportation: No Lack of Food: Never True Current Housing: I Have Housing Concerned About Future Housing: No Difficulty Paying Gas/Electric Bills: No Difficulty Paying for Meds: No Currently Unemployed: No Education: Bachelor's Degree Difficulty w/ Childcare or Family Care: No Living arrangements: with family Occupation/Education: retired 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 HTN, on b anh. Pt reports prev stress test 06/14 neg for ischemia, nml LVEF 47%. Informed Consent: The patient's anesthetic plan and its attendant risks and benefits were discussed with the patient/family/POA. Questions were solicited and answers provided to the satisfaction of the patient/family/POA.
--- NOTE | 2024-09-27 07:24 | SUR.PREOP ---
[id number] PT INFORMED ANESTH OF HEALING WOUND TO MID BACK. SITE CLEAR WITH SCANT DROP OF BLOOD NOTED TO STRETCHER SHEET. NO ACTIVE DRAINAGE NOTED , NO REDDNESS OR SWELLING PRESENT. MD AWARE , WILL COME SEE PT.
--- NOTE | 2024-09-27 07:51 | WPDHPUPDATE1 ---
History and Physical Update Update Date/Time: 09/27/24 07:51 Patient rolled on his side 15 minutes ago and there is a little spot of serous fluid under his back on the bed she. On closer inspection, he has a 4 mm area of granulation at the base of the previously healed indentation worried had the large inclusion cyst removed 3 months ago. I pushed around on this and at the 2 o'clock position about 1 cm away from this I was able to extrude about a 5 x 5 x 5 mm volume of white pasty material. There is no erythema of the of the surrounding skin and there is no tenderness whatsoever. I did obtain a culture swab transfer the glob of pasty material to culture medium will send this for aerobic anaerobic culture Gram stain. I called Dr. Blandon on the telephone. He noted that there was evidence of dozens of inclusion cysts in his back there is no way to remove all of the safe. He noted that there is literature and the general surgery field about these inclusion cysts with respect to mash use for hernias and studies have shown that is long as inclusion cyst is not clinically infected that is generally safe to proceed. I spoke with the patient and his at length. Our options are to postpone the surgery and have him undergo debridement of this inclusion cyst and wait for to heal drilled be about 3 months and schedule his hip replacement than with the understanding that it is likely that he is going to continue to have inclusion cysts flare from time to time as he has dozens remaining or proceed with surgery for his hip replacement and cover him with antibiotics. He is at increased risk for infection because of his diabetes and we would normally use extended oral antibiotics in this type of case particularly since he is an ex-smoker. I explained that if the culture grows and organism such as Staph aureus that we would direct antibiotics specifically to the organism but if this shows skin tj which is likely based on its appearance clinically the then we can use the standard 2 weeks of oral antibiotics broad-spectrum doxycycline because of his diabetes and recent ex-smoker status. He has been having great difficulty walking and is miserable with his hip and would prefer to proceed with hip replacement as discussed which I think is reasonable considering that we are not going to cure his problem by cancelling his surgery that he will always have these inclusion cysts developed from time to time he is going to have to deal with and this will me numerous courses of antibiotics to protect him from infection in his hip replacement. I explained this to his and she will be vigilant in watching this every day from this point forward and if he develops a problem the may need to have an inclusion cyst surgically debrided if it is severe or if this just a mild issue than a run of antibiotics. They feel that if he has to be on antibiotics for rest of his life for suppression they would prefer that to the pain he has been having in his left hip on a daily basis. Therefore we will proceed as discussed.
[2024-09-27] MEDS: ceFAZolin 2 GM/D5W 50 ML 2 GM/50 ML BAG IVPB ×3 (08:15→23:20)
[2024-09-27] MEDS: SODIUM CHLORIDE 0.9% IV 37.7 ML, MORPHINE SULFATE INJ (*CRX) 2 MG, ROPivacaine HCL 1% 2... INFILTRATE (08:53)
[2024-09-27] MEDS: ceFAZolin SODIUM 1 GM VIAL 3 GM (08:55)
[2024-09-27] MEDS: ceFAZolin SODIUM 1 GM VIAL 2 GM IV PUSH (11:22)
[2024-09-27] MEDS: TRANEXAMIC ACID 1,000 MG/10 ML AMPUL 1000 MG IV PUSH (11:38)
--- NOTE | 2024-09-27 11:55 | W.PM.PROC2 ---
Procedure Note - Detailed Date of Procedure 09/27/24 Pre-op Diagnosis oa left hip, obesity Post-op Diagnosis Same Procedure Performed Direct anterior approach left total hip arthroplasty Surgeon Mesfin Bolden MD [employer] Edyta Anesthesia General Description of Procedure Patient brought to the operating room and general anesthesia was measured. The boots were applied after padding applied the feet and the patient transferred to the [employer] table in left hip prepped draped usual fashion. There was extra difficulty with the procedure due to his abdominal obesity with BMI of 35. This made exposure much more difficult and this added at least 1 hour and 15 minutes to the procedure. He received 2 g of Ancef weight based vancomycin 1 g of TXA preoperatively. A 10 cm incision was made starting 3 cm lateral to the ASIS dissection carried down to the fascia over the tensor fascia narinder which was longitudinally incised over the midportion. Interval between TFL and rectus femoris developed an crossing branches of ascending lateral femoral circumflex vessels were ligated and divided. We ended up increasing the length of the incision 1 cm on each side. Retractors placed anteromedial to the capsule and the hip abducted internally rotated the gluteus minimus elevated off the lateral capsule and an inverted T a capsulotomy was performed. Femoral neck osteotomy made according to preoperative templating. Femoral head was removed. It had prominent marginal osteophytes. Acetabulum was exposed and labrum excised. The hip was externally rotated and extended and interval between conjoined tendon and piriformis was incised which allowed the conjoined tendon to recess and the piriformis to flip the leg was brought back to the horizontal position acetabulum exposed and prepared and fluoroscopic guidance medialized to the medial wall with a 44 Reamer and reaming up to a size 51 which gave peripheral contact at the level of the we gently reamed with the 52 Reamer and impacted a 52 trial which had a snug fit but fully seated. The 52 pinnacle cup was chosen and impacted at 40? of abduction and this achieved full seating with excellent Press-Fit. A single screw was placed in the ilium which obtained excellent purchase. Thirty-six inner diameter liner was placed without difficulty. We then turned our attention to the femur. Exposure was made more difficult by his prominent abdomen and the hip being fairly tight. However we were able to gradually get adequate exposure to address the femur. We broached up to a size 8 and trialed with the standard neck 8.5 head which was our preoperative templated size this was too tight. We removed able to reduce the hip with the +5 head and intraoperative x-ray showed that the we were little bit higher than our preoperative plan and the neck cut. The we countersunk the broach additional 4 mm and calcar planed and saw that the 8 broach still had torsional play so we broached up to a size 9 which was very solid. We countersunk this an additional mm and trialed and with the 8.5 head standard neck AP pelvis was obtained under fluoro which showed equal leg lengths and there is appropriate soft tissue shuck and stability. The calcar planing was completed and the size 9 Actis stem with standard neck was inserted and fully seated without difficulty. There were no cracks in the calcar noted. After trialing we chose the 8.5 head and the 8.5 ceramic by 36 mm head was impacted onto the clean and dried trunnion without difficulty hip reduced stability reconfirmed. Fluoroscopic x-ray was obtained which showed no radiographic complication. Superior limb of capsulotomy was repaired with number to Vicryl suture. Local anesthetic cocktail was injected in the periarticular soft tissues. Patient received additional 2 g of Ancef and 1 g TXA with time wound closure. Fascia was closed with running 1. Vicryl. Drain placed deep subQ. Skin closed with 2 subcu Vicryl and glue. Cell Saver noted EBL of 225 cc. Therefore I estimated total blood loss about 350. There is not enough blood in Cell Saver given back. He was transferred postop recovery room in stable condition. Good neck for [facility] Billing Surgery - Charge Forward: Surgery Billing (Left total hip arthroplasty. Extra difficulty due to obesity)
--- NOTE | 2024-09-27 12:10 | PM.OP ---
Procedure Note - Brief Procedure Note - Brief Date of procedure: 09/27/24 oa left hip Procedure performed: Left anterior total hip arthroplasty Surgeon: ELMER Quinones Findings: 73-year-old male who underwent left anterior total hip arthroplasty on 09/27. I was involved in the procedure including positioning the patient on the OR table in 1st assisting through the time surgery. Total time spent was 4 hours
[2024-09-27] MEDS: fentaNYL CITRATE INJ (*CRX) 100 MCG/2 ML VIAL 25 MCG IV PUSH ×2 (12:45→12:49)
--- NOTE | 2024-09-27 13:56 | SUR.PHASEI ---
13:20: Patient meets PACU discharge criteria, unit bed unavailable at this time. Patient placed in extended recovery status.
--- NOTE | 2024-09-27 14:33 | ADMGEN ---
This patient, Kevin Jaffe, was admitted to [address] [place] [address] Room 314-02. Patient/family oriented to hospital policies and general routines including ID bracelet, bed and alarms, visiting hours, pain management, procedures, bathroom and other care routines, personal items, smoking policy, room service/diet, and visiting hours. Information on how to activate the Rapid Response Team has been discussed. Patient/Family are encouraged to report perceived risks to care and to ask questions if they do not understand what they are told or what they should do.
[2024-09-27] MEDS: SODIUM CHLORIDE 0.9% IV 1,000 ML 125 ML IV CONT (15:35)
[2024-09-27] MEDS: ACETAMINOPHEN 325 MG TABLET 650 MG PO ×3 (15:35→22:46)
[2024-09-27] MEDS: oxyCODONE HCL (*CRX) 5 MG TAB IR PO ×3 (15:36→22:47)
--- NOTE | 2024-09-27 16:15 | P.CONIM_ITS ---
Assessment and Plan Assessment and plan (1) Osteoarthritis of left hip: Qualifiers: Osteoarthritis type: primary Qualified Code(s): M16.12 - Unilateral primary osteoarthritis, left hip Code(s): M16.12 - Unilateral primary osteoarthritis, left hip Status: Acute Assessment and Plan: Postoperative day 0 status post direct anterior approach left total hip arthroplasty. Wound care, pain control, and DVT prophylaxis deferred to primary service. PT/OT consulted. (2) Hypertension: Code(s): I10 - Essential (primary) hypertension Status: Acute Assessment and Plan: Blood pressures have been running a bit high postoperatively but they are improving with better pain control. Continue propanolol 80 mg twice daily and monitor closely. (3) Benign prostatic hyperplasia: Code(s): N40.0 - Benign prostatic hyperplasia without lower urinary tract symptoms Status: Acute Assessment and Plan: Patient reports that he is urinating without issue postoperatively. P.r.n. bladder scan Continue tamsulosin 0.4 mg daily. Plan Thank you for allowing us to participate in this patient's care. Please do not hesitate to contact us with any questions. HPI Date of Consult Consult date: 09/27/24 Requesting Physician: Mesfin Bolden MD Primary Care Provider: Henry Wharton MD Consult Narrative Reason for consult: medical management Narrative: This is a very pleasant 73-year-old male with osteoarthritis, hypertension, and benign prostatic hyperplasia whom the hospitalist service has been consulted for help managing his medical conditions postoperatively. He presented today for elective left total hip arthroplasty due to ongoing pain despite conservative outpatient therapy. His surgery was performed under general anesthesia with no immediate complications documented and an estimated blood loss of 350 mL. Postoperatively his pain is pretty well controlled though he does note discomfort with weight-bearing. He is ambulating to the bathroom and to the chair with a walker without issue. He denies fever, chills, sweats, syncope, near syncope, chest pain, shortness of breath, nausea, and vomiting. He also denies paresthesias, skin color, and temperature changes distal to the surgical site. Regarding his chronic medical conditions, he believes they are well controlled on medication. No history of venous thromboembolism. On discharge he will be going home and his will be helping out as needed. Review of Systems Review of Systems: 12 systems were reviewed and are negativ e except for as per HPI. [facility] Past Medical History Medical History (Updated 09/27/24 @ 20:18 by Tavia Guo PA-C) Aortic atherosclerosis (08/2020) CT 09/09 Prediabetes Benign prostatic hyperplasia Hypertension Colon polyps Amputation of digit of left hand Surgical History Surgical History (Updated 09/27/24 @ 20:16 by Tavia Guo PA-C) History of bilateral cataract extraction History of appendectomy History of repair of left rotator cuff (2015) History of open reduction and internal fixation (ORIF) procedure (2007) repair left wrist fracture History of colonoscopy with polypectomy History of total left hip arthroplasty (09/27/24) Family History Family History Sibling Leukemia Social History Social History (Updated 09/27/24 @ 20:17 by Tavia Guo PA-C) Social History: Surrogate medical decision maker: Chikis Jaffe, spouse. Code status: Full code. Smoking packs per day: 0.5 Smoking cigarettes per day: 10.0 Years smoked: 50 Smoking pack-years: 25.00 Smoking status: Former smoker Tobacco type: cigarettes Second hand tobacco smoke exposure: No Smoking end date: 04/22/24 Alcohol intake: current Drinks per week: 1 Substance use: never Substance use type: does not use Do You Feel Safe in your Home?: Yes Lack of Transportation: No Lack of Food: Never True Current Housing: I Have Housing Concerned About Future Housing: No Difficulty Paying Gas/Electric Bills: No Difficulty Paying for Meds: No Currently Unemployed: No Education: Associate Degree Difficulty w/ Childcare or Family Care: No Living arrangements: with family Additional living arrangements comments: Lives with spouse in [place]. 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 Spiritual care concerns: No Meds Home Medications and Allergies Home Medications ?Medication ?Instructions ?Recorded ?Confirmed ?Type propranolol 80 mg tablet 80 mg PO BID #180 tabs 02/10/24 09/27/24 Rx tamsulosin 0.4 mg capsule See Rx Instructions .Route 05/06/24 09/27/24 Rx .COMPLEX #90 caps vitamins A,C,G-trdu-ragexh 2,148 2 tablet PO BID 06/13/24 09/27/24 History mcg-113 mg-45 mg-17.4 mg tablet (PreserVision AREDS) Allergies Allergy/AdvReac Type Severity Reaction Status Date / Time No Known Allergies Allergy NONE Verified 09/27/24 06:41 Vital Signs Vital Signs - 24 hr 09/27/24 06:10 09/27/24 12:04 09/27/24 12:06 Temperature 97.2 F L 97.9 F Pulse Rate 59 L 58 L 62 Respiratory Rate 18 14 16 Blood Pressure 177/72 H 151/72 H Pulse Oximetry 95 99 100 Oxygen Delivery Room Air Simple Face Mask Simple Face Mask Oxygen Flow Rate 8 8 09/27/24 12:20 09/27/24 12:35 09/27/24 12:50 Temperature Pulse Rate 60 59 L 56 L Respiratory Rate 17 16 14 Blood Pressure 181/58 H 160/75 H 160/45 H Pulse Oximetry 100 96 94 Oxygen Delivery Simple Face Mask Room Air Nasal Cannula Oxygen Flow Rate 10 2 09/27/24 13:05 09/27/24 13:20 09/27/24 13:50 Temperature Pulse Rate 55 L 54 L 54 L Respiratory Rate 12 14 16 Blood Pressure 152/70 H 158/89 H 162/64 H Pulse Oximetry 99 98 100 Oxygen Delivery Nasal Cannula Nasal Cannula Nasal Cannula Oxygen Flow Rate 2 2 2 09/27/24 14:15 09/27/24 14:45 09/27/24 15:00 Temperature 97.5 F L 97.3 F L Pulse Rate 52 L 54 L 51 L Respiratory Rate 12 17 16 Blood Pressure 167/71 H 179/73 H 174/68 H Pulse Oximetry 98 94 97 Oxygen Delivery Nasal Cannula Oxygen Flow Rate 2 09/27/24 15:03 09/27/24 15:21 09/27/24 15:30 Temperature 97.2 F L Pulse Rate 56 L Respiratory Rate 16 Blood Pressure 154/74 H Pulse Oximetry 98 Oxygen Delivery Room Air Room Air Oxygen Flow Rate Exam Narrative: General: Well-developed, nontoxic-appearing gentleman sitting in a chair at the side of the bed in no distress. Weight: 107.5 kg. BMI: 35.0. HEENT: Normocephalic, atraumatic. PERRL, EOMI. Sclera anicteric. Oral mucosa moist. Neck: Supple. Respiratory: Lungs are clear to auscultation bilaterally. Cardiovascular: Bradycardic with normal S1-S2. Gastrointestinal: Abdomen is soft, nontender, and nondistended with positive bowel sounds. Skin: Warm and dry. No rash or lesions on limited exam. Extremities: No cyanosis, clubbing, or edema. Radial and pedal pulses intact. Musculoskeletal: Left hip dressing is clean, dry, and intact. Hemovac in place. Neurological: Alert. Cranial nerves 2-12 grossly intact. No gross focal deficits to casual conversation. Psychiatric: Pleasant and cooperative with normal mood and affect. Judgment and insight intact.
[2024-09-27] MEDS: KETOROLAC 15 MG/ML VIAL (*BKC) IV PUSH ×2 (18:51→23:26)
[2024-09-27] MEDS: SENNA/DOCUSATE SODIUM TABLET 2 TAB PO (18:52)
[2024-09-27] MEDS: PROPRANOLOL HCL 40 MG TABLET 80 MG PO (18:53)
[2024-09-27] MEDS: VANCOMYCIN 1,000 MG/NS 250 ML 1,000 MG/250 ML BAG 250 MG IVPB (18:54)
[2024-09-27] MEDS: FAMOTIDINE 20 MG TABLET PO (20:11)
[2024-09-28 00:04] VITALS: BP 146/67; PULSE 56; RESP 18; TEMP 36.6; O2SAT 93
[2024-09-28] MEDS: SODIUM CHLORIDE 0.9% IV 1,000 ML 125 ML IV CONT (02:06)
[2024-09-28] MEDS: ACETAMINOPHEN 325 MG TABLET 650 MG PO ×3 (02:44→09:29)
[2024-09-28] MEDS: oxyCODONE HCL (*CRX) 5 MG TAB IR PO ×3 (02:44→10:00)
[2024-09-28 04:04] VITALS: BP 154/69; PULSE 60; RESP 18; TEMP 36.4; O2SAT 96
[2024-09-28 06:26] LABS: Basophils Percent Auto 0.2 % (0.2-1.2); Eosinophils Percent Auto 0.1 % (0-4.4); Hematocrit 35.9 % (42.0-52.0); Hemoglobin 11.9 g/dL (14.0-18.0); Immature Granulocyte Absolute 0.06 K/mm3 (0.00-0.031); Immature Granulocyte Percent A 0.4 % (0-0.5); Lymphocytes Absolute Auto 2.06 K/mm3 (0.9-3.2); Lymphocytes Percent Auto 14.2 % (18.3-44.2); Mean Corpuscular HGB Conc 33.1 g/dl (32-36); Mean Corpuscular Hemoglobin 34.7 pg (26-34); Mean Corpuscular Volume 104.7 fl (80-100); Mean Platelet Volume 9.7 fl (7.4-10.4); Monocytes Absolute Auto 2.1 K/mm3 (0.1-0.6); Monocytes Percent Auto 14.2 % (2.6-8.5); Neutrophils Absolute Auto 10.3 K/mm3 (1.3-6.7); Neutrophils Percent Auto 70.9 % (45.5-73.1); Platelet Count Result 235 k/mm3 (150-375); Red Blood Count 3.43 M/mm3 (4.6-6.20); Red Cell Distribution Width 12.9 % (11.5-14.5); White Blood Count 14.5 K/mm3 (4.5-10.0)
[2024-09-28 06:37] LABS: Anion Gap 6 mmol/L (4-12); Blood Urea Nitrogen 28 mg/dL (9-20); Calcium 8.3 mg/dL (8.4-10.2); Carbon Dioxide 24 mmol/L (22-30); Chloride 106 mmol/L (98-107); Estimated CRCL calculation 61 ml/min; Estimated Glomerular Filt Rate 60; Glucose 182 mg/dL (65-110); Magnesium 1.7 mg/dL (1.6-2.3); Potassium 4.4 mmol/L (3.4-5.0); Sodium 136 mmol/L (137-145)
[2024-09-28] MEDS: VANCOMYCIN 1,000 MG/NS 250 ML 1,000 MG/250 ML BAG 250 MG IVPB (06:43)
--- NOTE | 2024-09-28 07:38 | P.PNOP_ITS ---
Subjective Subjective Date/Time Seen: 09/28/24 07:38 Interval history: Postop day 1 patient is alert. He is afebrile vital signs are stable. Morning labs are noted. His drain is out in dressing was changed. Patient states he was walking with physical therapy yesterday and doing very well. Overall pain is very well controlled. Neurovascularly he is intact. Will plan have the patient work with Physical therapy this morning and if he continues to be comf ortable he will be discharged home late this morning. Objective Data Vital Signs Vital Signs: Vital Signs - 24 hr 09/27/24 12:04 09/27/24 12:06 09/27/24 12:20 Temperature 97.9 F Pulse Rate 58 L 62 60 Respiratory Rate 14 16 17 Blood Pressure 151/72 H 181/58 H Pulse Oximetry 99 100 100 Oxygen Delivery Simple Face Mask Simple Face Mask Simple Face Mask Oxygen Flow Rate 8 8 10 09/27/24 12:35 09/27/24 12:50 09/27/24 13:05 Temperature Pulse Rate 59 L 56 L 55 L Respiratory Rate 16 14 12 Blood Pressure 160/75 H 160/45 H 152/70 H Pulse Oximetry 96 94 99 Oxygen Delivery Room Air Nasal Cannula Nasal Cannula Oxygen Flow Rate 2 2 09/27/24 13:20 09/27/24 13:50 09/27/24 14:15 Temperature Pulse Rate 54 L 54 L 52 L Respiratory Rate 14 16 12 Blood Pressure 158/89 H 162/64 H 167/71 H Pulse Oximetry 98 100 98 Oxygen Delivery Nasal Cannula Nasal Cannula Nasal Cannula Oxygen Flow Rate 2 2 2 09/27/24 14:45 09/27/24 15:00 09/27/24 15:03 Temperature 97.5 F L 97.3 F L Pulse Rate 54 L 51 L Respiratory Rate 17 16 Blood Pressure 179/73 H 174/68 H Pulse Oximetry 94 97 Oxygen Delivery Room Air Oxygen Flow Rate 09/27/24 15:21 09/27/24 15:30 09/27/24 16:30 Temperature 97.2 F L 96.3 F L Pulse Rate 56 L 52 L Respiratory Rate 16 16 Blood Pressure 154/74 H 158/67 H Pulse Oximetry 98 95 Oxygen Delivery Room Air Oxygen Flow Rate 09/27/24 20:00 09/27/24 20:04 09/28/24 00:04 Temperature 97.3 F L 97.9 F Pulse Rate 54 L 56 L Respiratory Rate 18 18 Blood Pressure 164/67 H 146/67 H Pulse Oximetry 96 96 93 Oxygen Delivery Nasal Cannula Oxygen Flow Rate 2 09/28/24 04:04 Temperature 97.5 F L Pulse Rate 60 Respiratory Rate 18 Blood Pressure 154/69 H Pulse Oximetry 96 Oxygen Delivery Oxygen Flow Rate Intake/Output Intake/Output: Intake & Output 09/25/24 09/26/24 09/27/24 09/28/24 23:59 23:59 23:59 23:59 Intake Total 790 1100 Output Total 70 Balance 720 1100 Meds/Results Medications: Active Medications Generic Name Dose Route Start Last Admin Trade Name Freq PRN Reason Stop Dose Admin Acetaminophen 650 mg 09/27/24 14:00 09/28/24 06:41 Acetaminophen 325 Mg Tablet PO 650 mg Q4H LI Administration Apixaban 2.5 mg 09/28/24 09:00 Apixaban 2.5 Mg Tablet PO Q12HR LI Celecoxib 200 mg 09/28/24 09:00 Celecoxib 200 Mg Capsule PO DAILY LI Doxycycline Hyclate 100 mg 09/28/24 09:00 Doxycycline Hyclate 100 Mg Tablet PO Q12HR LI Famotidine 20 mg 09/27/24 21:00 09/27/24 20:11 Famotidine 20 Mg Tablet PO 20 mg Q12HR LI Administration Sodium Chloride 1,000 mls @ 125 mls/hr 09/27/24 14:19 09/28/24 02:06 Normal Saline Iv IV CONT 125 mls/hr .Q8H LI Administration Cefazolin Sodium 2 gm in 50 mls @ 100 mls/hr 09/27/24 16:00 09/27/24 23:50 Ancef 2 Gm/D5w 50 Ml IVPB 09/28/24 08:29 Infused Q8H LI Infusion Morphine Sulfate 2 mg 09/27/24 14:19 Morphine Sulfate (*Crx) 2 Mg/Ml Inj IV PUSH Q2H PRN Breakthrough Pain Rated 4-6 or NPO Naloxone HCl 0.1 mg 09/27/24 14:19 Naloxone Hcl 0.4 Mg/Ml Vial IV PUSH Q2M PRN Opiate Reversal Ondansetron HCl 4 mg 09/27/24 14:19 Ondansetron Inj 4 Mg/2 Ml Vial IV PUSH Q4H PRN Nausea And Vomiting Oxycodone HCl 5 mg 09/27/24 15:00 09/28/24 06:41 Oxycodone Hcl (*Crx) 5 Mg Tab Ir PO 5 mg Q4H LI Administration Oxycodone HCl 5 mg 09/27/24 14:19 Oxycodone Hcl (*Crx) 5 Mg Tab Ir PO Q4H PRN Pain Rated 7-10 Polyethylene Glycol 17 gm 09/28/24 09:00 Polyethylene Glycol 3350 17 Gm Powd.Pack PO QAM LI Propranolol HCl 80 mg 09/27/24 17:00 09/27/24 18:53 Propranolol Hcl 40 Mg Tablet PO 80 mg BID LI Administration Senna/Docusate Sodium 2 tab 09/27/24 17:00 09/27/24 18:52 Senna/Docusate Sodium Tablet PO 2 tab BID LI Administration Tamsulosin HCl 0.4 mg 09/28/24 09:00 Tamsulosin Hcl 0.4 Mg Capsule BY MOUTH DAILY [facility] Radiology Results: ITS Impressions Intraoperative X-Ray 09/27/24 12:07 IMPRESSION: 1. Expected appearance during left total hip arthroplasty. Hip/Pelvis X-Ray 09/27/24 15:42 IMPRESSION: No acute osseous abnormality. Left hip arthroplasty. Labs Labs: Laboratory Results - last 24 hr 09/28/24 05:47 WBC 14.5 H RBC 3.43 L Hgb 11.9 L D Hct 35.9 L MCV 104.7 H MCH 34.7 H MCHC 33.1 RDW 12.9 Plt Count 235 MPV 9.7 Immature Gran % (Auto) 0.4 Neut % (Auto) 70.9 Lymph % (Auto) 14.2 L [place] % (Auto) 14.2 H Eos % (Auto) 0.1 Baso % (Auto) 0.2 Lymph # (Auto) 2.06 [place] # (Auto) 2.1 H Eos # (Auto) 0.0 Baso # (Auto) 0.0 Abs Immat Gran (auto) 0.06 H Absolute Neuts (auto) 10.3 H Absolute Nucleated RBC 0.000 Nucleated RBC % 0.0 Sodium 136 L Potassium 4.4 Chloride 106 Carbon Dioxide 24 Anion Gap 6 BUN 28 H D Creatinine 1.19 Estim Creat Clear Calc 61 Estimated GFR 60 Glucose 182 H Calcium 8.3 L Magnesium 1.7
[2024-09-28 08:04] VITALS: BP 155/61; PULSE 52; RESP 18; TEMP 36.6; O2SAT 94
[2024-09-28] MEDS: polyethylene glycoL 3350 17 GM POWD.PACK PO (09:18)
[2024-09-28] MEDS: ceFAZolin 2 GM/D5W 50 ML 2 GM/50 ML BAG IVPB (09:20)
[2024-09-28 09:27] VITALS: PULSE 58
[2024-09-28] MEDS: PROPRANOLOL HCL 40 MG TABLET 80 MG PO (09:27)
[2024-09-28] MEDS: SENNA/DOCUSATE SODIUM TABLET 2 TAB PO (09:27)
[2024-09-28] MEDS: CELECOXIB 200 MG CAPSULE PO (09:28)
[2024-09-28] MEDS: FAMOTIDINE 20 MG TABLET PO (09:28)
[2024-09-28] MEDS: DOXYCYCLINE HYCLATE 100 MG TABLET PO (09:30)
[2024-09-28] MEDS: APIXABAN 2.5 MG TABLET PO (09:31)
--- NOTE | 2024-09-28 11:16 | P.PNIM_ITS ---
Progress Note: A&P Assessment and Plan (1) Osteoarthritis of left hip: Qualifiers: Osteoarthritis type: primary Qualified Code(s): M16.12 - Unilateral primary osteoarthritis, left hip Code(s): M16.12 - Unilateral primary osteoarthritis, left hip Status: Acute Assessment and Plan: * Postoperative day 1 status post direct anterior approach left total hip arthroplasty. * Wound care, pain control, and DVT prophylaxis deferred to primary service. * PT/OT (2) Hypertension: Code(s): I10 - Essential (primary) hypertension Status: Acute Assessment and Plan: * Blood pressures have been running a bit high postoperatively but they are improving with better pain control. * Current blood pressure 155/61. * Continue Propranolol 80 mg twice daily and monitor closely. (3) Benign prostatic hyperplasia: Code(s): N40.0 - Benign prostatic hyperplasia without lower urinary tract symptoms Status: Acute Assessment and Plan: * Patient reports that he is urinating without issue postoperatively. * P.r.n. bladder scan * Continue tamsulosin 0.4 mg daily. Plan Thank you for allowing us to participate in this patient's care. Please do not hesitate to contact us with any questions. Subjective Date/time seen: 09/28/24 11:16 Interval history: Patient sitting up in bed. Patient denies pain at rest, patient reports that left hip pain is a 6 , constant, aching, and throbbing with activity. Patient denies shortness of breath, palpitations, headache, or dizziness. Review of Systems Review of Systems: All systems reviewed & are unremarkable except as noted in HPI and below Exam Const: General: comfortable and no acute distress Resp: Effort & Inspection: normal respiratory effort Auscultation: clear to auscultation bilaterally Cardio: Rate: bradycardic GI: GI Palp: Yes Soft to palpation Auscultation: normal bowel sounds Skin: Other: left hip dressing. Neuro: Speech: normal speech Extrem: General: no pedal edema Psych: Mental Status: mental status grossly normal Affect: normal affect Objective Data Vital Signs Vital Signs: Vital Signs - 24 hr 09/27/24 12:04 09/27/24 12:06 09/27/24 12:20 Temperature 97.9 F Pulse Rate 58 L 62 60 Respiratory Rate 14 16 17 Blood Pressure 151/72 H 181/58 H Pulse Oximetry 99 100 100 Oxygen Delivery Simple Face Mask Simple Face Mask Simple Face Mask Oxygen Flow Rate 8 8 10 09/27/24 12:35 09/27/24 12:50 09/27/24 13:05 Temperature Pulse Rate 59 L 56 L 55 L Respiratory Rate 16 14 12 Blood Pressure 160/75 H 160/45 H 152/70 H Pulse Oximetry 96 94 99 Oxygen Delivery Room Air Nasal Cannula Nasal Cannula Oxygen Flow Rate 2 2 09/27/24 13:20 09/27/24 13:50 09/27/24 14:15 Temperature Pulse Rate 54 L 54 L 52 L Respiratory Rate 14 16 12 Blood Pressure 158/89 H 162/64 H 167/71 H Pulse Oximetry 98 100 98 Oxygen Delivery Nasal Cannula Nasal Cannula Nasal Cannula Oxygen Flow Rate 2 2 2 09/27/24 14:45 09/27/24 15:00 09/27/24 15:03 Temperature 97.5 F L 97.3 F L Pulse Rate 54 L 51 L Respiratory Rate 17 16 Blood Pressure 179/73 H 174/68 H Pulse Oximetry 94 97 Oxygen Delivery Room Air Oxygen Flow Rate 09/27/24 15:21 09/27/24 15:30 09/27/24 16:30 Temperature 97.2 F L 96.3 F L Pulse Rate 56 L 52 L Respiratory Rate 16 16 Blood Pressure 154/74 H 158/67 H Pulse Oximetry 98 95 Oxygen Delivery Room Air Oxygen Flow Rate 09/27/24 20:00 09/27/24 20:04 09/28/24 00:04 Temperature 97.3 F L 97.9 F Pulse Rate 54 L 56 L Respiratory Rate 18 18 Blood Pressure 164/67 H 146/67 H Pulse Oximetry 96 96 93 Oxygen Delivery Nasal Cannula Oxygen Flow Rate 2 09/28/24 04:04 09/28/24 08:04 09/28/24 09:27 Temperature 97.5 F L 97.9 F Pulse Rate 60 52 L 58 L Respiratory Rate 18 18 Blood Pressure 154/69 H 155/61 H Pulse Oximetry 96 94 Oxygen Delivery Oxygen Flow Rate Intake/Output Intake/Output: Intake & Output 09/25/24 09/26/24 09/27/24 09/28/24 23:59 23:59 23:59 23:59 Intake Total 790 1390 Output Total 70 Balance 720 1390 Meds/Results Medications: Active Medications Generic Name Dose Route Start Last Admin Trade Name Freq PRN Reason Stop Dose Admin Acetaminophen 650 mg 09/27/24 14:00 09/28/24 09:29 Acetaminophen 325 Mg Tablet PO 650 mg Q4H LI Administration Apixaban 2.5 mg 09/28/24 09:00 09/28/24 09:31 Apixaban 2.5 Mg Tablet PO 2.5 mg Q12HR LI Administration Celecoxib 200 mg 09/28/24 09:00 09/28/24 09:28 Celecoxib 200 Mg Capsule PO 200 mg DAILY LI Administration Doxycycline Hyclate 100 mg 09/28/24 09:00 09/28/24 09:30 Doxycycline Hyclate 100 Mg Tablet PO 100 mg Q12HR LI Administration Famotidine 20 mg 09/27/24 21:00 09/28/24 09:28 Famotidine 20 Mg Tablet PO 20 mg Q12HR LI Administration Morphine Sulfate 2 mg 09/27/24 14:19 Morphine Sulfate (*Crx) 2 Mg/Ml Inj IV PUSH Q2H PRN Breakthrough Pain Rated 4-6 or NPO Naloxone HCl 0.1 mg 09/27/24 14:19 Naloxone Hcl 0.4 Mg/Ml Vial IV PUSH Q2M PRN Opiate Reversal Ondansetron HCl 4 mg 09/27/24 14:19 Ondansetron Inj 4 Mg/2 Ml Vial IV PUSH Q4H PRN Nausea And Vomiting Oxycodone HCl 5 mg 09/27/24 15:00 09/28/24 10:00 Oxycodone Hcl (*Crx) 5 Mg Tab Ir PO 5 mg Q4H LI Administration Oxycodone HCl 5 mg 09/27/24 14:19 Oxycodone Hcl (*Crx) 5 Mg Tab Ir PO Q4H PRN Pain Rated 7-10 Polyethylene Glycol 17 gm 09/28/24 09:00 09/28/24 09:18 Polyethylene Glycol 3350 17 Gm Powd.Pack PO 17 gm QAM LI Administration Propranolol HCl 80 mg 09/27/24 17:00 09/28/24 09:27 Propranolol Hcl 40 Mg Tablet PO 80 mg BID LI Administration Senna/Docusate Sodium 2 tab 09/27/24 17:00 09/28/24 09:27 Senna/Docusate Sodium Tablet PO 2 tab BID LI Administration Tamsulosin HCl 0.4 mg 09/28/24 09:00 09/28/24 09:30 Tamsulosin Hcl 0.4 Mg Capsule BY MOUTH Not Given DAILY [facility] Radiology Results: ITS Impressions Intraoperative X-Ray 09/27/24 12:07 IMPRESSION: 1. Expected appearance during left total hip arthroplasty. Hip/Pelvis X-Ray 09/27/24 15:42 IMPRESSION: No acute osseous abnormality. Left hip arthroplasty. Labs Labs: Laboratory Results - last 24 hr 09/28/24 05:47 WBC 14.5 H RBC 3.43 L Hgb 11.9 L D Hct 35.9 L MCV 104.7 H MCH 34.7 H MCHC 33.1 RDW 12.9 Plt Count 235 MPV 9.7 Immature Gran % (Auto) 0.4 Neut % (Auto) 70.9 Lymph % (Auto) 14.2 L [place] % (Auto) 14.2 H Eos % (Auto) 0.1 Baso % (Auto) 0.2 Lymph # (Auto) 2.06 [place] # (Auto) 2.1 H Eos # (Auto) 0.0 Baso # (Auto) 0.0 Abs Immat Gran (auto) 0.06 H Absolute Neuts (auto) 10.3 H Absolute Nucleated RBC 0.000 Nucleated RBC % 0.0 Sodium 136 L Potassium 4.4 Chloride 106 Carbon Dioxide 24 Anion Gap 6 BUN 28 H D Creatinine 1.19 Estim Creat Clear Calc 61 Estimated GFR 60 Glucose 182 H Calcium 8.3 L Magnesium 1.7
== END 2024-09-28 11:40 | disposition home or self-care (01) ==
LOC: ANHSURGERY 06:05 → ANH3MEDSUR 14:21
PROVIDERS: Physician Assistant Surgical; PCP Family Medicine Adolescent Medicine; Visit Provider Orthopaedic Surgery
PROC: (CPT 27130; principal; 2024-09-27 07:30)
DX: M16.12 Unilateral primary osteoarthritis, left hip (principal); E66.9 Obesity, unspecified; Z68.35 Body mass index [BMI] 35.0-35.9, adult; I10 Essential (primary) hypertension; N40.0 Benign prostatic hyperplasia without lower urinary tract symptoms; Z79.899 Other long term (current) drug therapy; Z87.891 Personal history of nicotine dependence
CPT/HCPCS: 27130; 36415; 73501; 80048; 82948; 83735; 85025; 87070; 87075; 87205; 97110; 97161; 97165; 97530; 97535; 99199; A9270; C1776; J0171; J0690; J1100; J1596; J1885; J2003; J2250; J2270; J2405; J2704; J2795; J3010; J3370; J7030; J7120

== ENCOUNTER 2024-10-01 12:55 | Emergency (ER) | payer MEDICARE, SELFPAY ==
[2024-10-01] VITALS (9 sets, daily range): BP systolic 152–181; BP diastolic 64–84; PULSE 52–64; RESP 17–25; TEMP 36.4–36.6; O2SAT 94–100
--- NOTE | ~2024-10-01 | CT_ITS ---
CTA chest PE protocol Ordering provider: Selin Stevens MD History: 73 years Male with . hypoxia @home, recent surg, dimer >1 . Comparison: August 05, 2022 Technique: CT angiogram chest was performed following timed intravenous injection of contrast. Thin s lice axial images and reformatted coronal images were obtained. Three dimensional reformatted images of the chest were also obtained using a [employer] workstation. . Automated exposure control and iterati ve reconstruction technique were employed. The dose-length product was 724.36 mGy-cm. 100 mL Omnipaqu e 350 was given IV. Findings: PULMONARY ARTERIES: No pulmonary embolus. VISUALIZED THORACIC INLET: Normal. MEDIASTINUM: Aorta/coronary arteries: Mild atheromatous disease. Heart/other: The heart is not enlarged. Lymph nodes: No mediastinal or hilar adenopathy. LUNGS: Dependent atelectatic changes. Nodule is seen in the left lower lobe measuring 5 mm. Nodules seen in the right medial and lower lobes measuring 6 mm. Nodule is seen in the left upper lobe posteriorly. n odules are Unchanged from previous examination. no pulmonary masses. No infiltrates or effusions. No pneumothorax. Underlying Emphysematous changes of the lungs are noted VISUALIZED UPPER ABDOMEN: Fat infiltration of the liver. Otherwise, the visualized upper abdomen is n ormal. MUSCULOSKELETAL: Soft tissues: Soft tissue density seen in the anterior chest wall slightly larger than the previous e xamination. The superficial soft tissues are normal. Bones: Age appropriate degenerative changes of the spine. Old healed fracture in the left lower thora x ribs. IMPRESSION: 1. No pulmonary embolism. 2. No acute cardiopulmonary pathology.Paraseptal emphysematous changes are seen in the upper lobes o f the lungs. 3. Fat infiltration of the liver. 4. Nodules in the lungs unchanged from previous examination. Reviewed, dictated and finalized at location A. IMPRESSION: 1. No pulmonary embolism. 2. No acute cardiopulmonary pathology.Paraseptal emphysematous changes are see n in the upper lobes of the lungs. 3. Fat infiltration of the liver. 4. Nodules in the lungs unchanged from previous examination.
--- NOTE | ~2024-10-01 | XR_ITS ---
XR chest 2V Ordering provider: Selin Stevens MD History: 73 years Male with . short of breath . Comparison: June 27, 2023 FINDINGS: MEDIASTINUM: The cardiac silhouette is moderately enlarged. Congestive radha. LUNGS: No effusions or pneumothorax. Possible opacification the left lung base. Bilateral interstitial changes which may indicate pneumoni tis or edema. OTHER: No free air under the diaphragm. IMPRESSION: Cardiomegaly with highly suggestive cardiac decompensation and pulmonary edema. Pneumonitis is not ex cluded. Possible opacification in the left lung base is seen which may indicate atelectasis versus pneumonia. Reviewed, dictated and finalized at location A. IMPRESSION: Cardiomegaly with highly suggestive cardiac decompensation and pulmonary edema. Pneumonitis is not excluded. Possible opacification in the left lung base is seen which may indicate atelect asis versus pneumonia.
--- OUTSIDE RECORDS SUMMARY | 2024-10-01 12:57 | XMS_ITS | Clinical Summary ---
Author Organization [facility] [address] 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
--- OUTSIDE RECORDS SUMMARY | 2024-10-01 12:57 | XMS_ITS | Referral Summary ---
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
--- NOTE | 2024-10-01 13:01 | ECG_ITS ---
Test Date: 2024-10-01 13:07:13 Measurements Intervals [place] Rate: 54 P: 3 ME: 160 QRS: 36 QRSD: 106 T: 37 QT: 443 QTc: 423 Interpretive Statements SINUS BRADYCARDIA INCOMPLETE RIGHT BUNDLE BRANCH BLOCK DELAYED PRECORDIAL R/S TRANSITION BORDERLINE ST-T WAVE ABNORMALITY- ANT/LAT LEADS BASELINE ARTIFACT- I, II, III, AVR, AVL, AVF, V1-V6 BORDERLINE ECG No previous ECG available for comparison Electronically Signed On 10-01-2024 14:40:10 CDT by Jeffrey Cates D.O.
--- NOTE | 2024-10-01 13:08 | ED.SOB ---
HPI - SOB/Dyspnea General Chief Complaint: Shortness of Breath/Dyspnea Stated Complaint: low oxygen levels Time Seen by Provider: 10/01/24 12:58 Source: patient and family Limitations: no limitations History of Present Illness HPI Narrative: Patient presents with report of shortness of breath and low oxygen saturation. According to the family he was saturating 86-89% on room air. Patient underwent left hip replacement on 09/27/2024 here at [facility] with Dr Bolden who advised he come in. Patient was started on new yesterday for wheezing , 600 mg. He has taken 2 doses thus far. Former smoker, stopped in April. Denies underlying respiratory issues. No fevers or chills. He started to develop a cough, non productive, no hemoptysis. Had never prevoiusly been on Elliquis but this was started after his surgery, on Thursday. He particularly gets short of breath with movement, dyspenic on exertion, but also even at rest. No chest pain but a chest tightness. Does not know if he is experiencing orthopnea as he has been sleeping upright in a hospital bed after surgery. No paroxysmal nocturnal dyspnea. Related Data Home Medications ?Medication ?Instructions ?Recorded ?Confirmed ?Last Taken ?Type vitamins A,C,M-[id number]-czgsyk 2,148 2 tablet PO BID 06/13/24 09/27/24 09/24/24 History mcg-113 mg-45 mg-17.4 mg tablet (PreserVision AREDS) Allergies Allergy/AdvReac Type Severity Reaction Status Date / Time No Known Allergies Allergy NONE Verified 09/27/24 06:41 [facility] Past Medical History Medical History Aortic atherosclerosis (08/2020) CT 09/09 Prediabetes Benign prostatic hyperplasia Hypertension Colon polyps Amputation of digit of left hand Surgical History Surgical History History of bilateral cataract extraction History of appendectomy History of repair of left rotator cuff (2015) History of open reduction and internal fixation (ORIF) procedure (2007) repair left wrist fracture History of colonoscopy with polypectomy History of total left hip arthroplasty (09/27/24) Family History Family History Sibling Leukemia Social History Social History Social History: Surrogate medical decision maker: Chikis Jaffe, spouse. Code status: Full code. Smoking packs per day: 0.5 Smoking cigarettes per day: 10.0 Years smoked: 50 Smoking pack-years: 25.00 Smoking status: Former smoker Tobacco type: cigarettes Second hand tobacco smoke exposure: No Smoking end date: 04/22/24 Alcohol intake: current Drinks per week: 1 Substance use: never Substance use type: does not use Do You Feel Safe in your Home?: Yes Lack of Transportation: No Lack of Food: Never True Current Housing: I Have Housing Concerned About Future Housing: No Difficulty Paying Gas/Electric Bills: No Difficulty Paying for Meds: No Currently Unemployed: No Education: Associate Degree Difficulty w/ Childcare or Family Care: No Living arrangements: with family Additional living arrangements comments: Lives with spouse in [place]. 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 Spiritual care concerns: No Exam Narrative: GENERAL: Well-appearing, well-nourished, and in no acute distress. HEAD: Normocephalic, atraumatic. EYES: Non injected, non icteric ENT: Nares clear, no rhinorrhea or epistaxis. NECK: Supple. CHEST: Speaking in full sentences. Tachypneic. Bilateral wheezes on auscultation. HEART: Regular rate and rhythm. . ABDOMEN: Protuberant but Soft, nondistended. EXTREMITIES: Trace R lower extremity edema, 1+ L lower extremity edema. SKIN: Warm, dry, no rash. NEURO: No focal deficits. Alert and oriented x3. PSYCH: Normal mood and affect. Course Vital Signs Vital signs: Vital Signs Temperature 97.6 F 10/01/24 13:02 Pulse Rate 64 10/01/24 13:02 Respiratory Rate 25 H 10/01/24 13:02 Blood Pressure 181/64 H 10/01/24 13:02 Pulse Oximetry 94 10/01/24 13:02 Oxygen Delivery Room Air 10/01/24 13:02 Temperature 97.7 F 10/01/24 15:58 Pulse Rate 56 L 10/01/24 15:58 Respiratory Rate 20 10/01/24 15:58 Blood Pressure 152/84 H 10/01/24 15:58 Pulse Oximetry 97 10/01/24 15:58 Oxygen Delivery Room Air 10/01/24 13:14 MDM - SOB/Dyspnea MDM Narrative Medical decision making narrative: Patient presents with shortness of breath, particularly dyspneic with exertion but also even at rest. Post op day 4 from left hip replacement with Dr Bolden. Post operatively, he was started on Elliquis. Has developed a cough. In the emergency department he is afebrile with vital signs notable for hypertension and tachypnea. Mild leukocytosis. Patient has a macrocytic anemia that is stable from previous. Patient has mild hyperglycemia without anion gap acidosis. History of prediabetes per review of the EMR. BNP is approximately 3000. It has been similar previously. Patient denies any underlying respiratory conditions however he did smoke until recently, stopping in April and has evidence of emphysema on his CT scan. Initially given albuterol inhaler but given steroid and Duoneb after this finding. Given borederline presentation, possible new diagnosis, questionable atelectasis versus pneumonia on exam, mild leukocytosis, and recent hospitalization, will give antibiotic as well. Normal troponin. Patient is reassessed approximately 3:25 p.m.. His shortness of breathing is improved and on auscultation no longer has wheezes. He does successfully walk with walking pulse ox, lowest reported value is 93%. Discharged home in stable condition with Rx for steroid, inhaler, and rest of short course of antibiotics. Advised f/u with PCP and orthopedic surgeon. Differential Diagnosis Differential diagnosis: Likely acute exacerbation of chronic obstructive airways disease (considered new diagnosis), congestive heart failure, community acquired pneumonia ((post operative pneumonia)), pulmonary embolism (considered even though recently started on anticoagulation) and other (acute viral syndrome; considered medication side effect (but not on ACEi). ) Lab Data Attestation: I reviewed the patient's lab results. Lab results narrative: Viral panel negative 10/01/24 13:10 10/01/24 13:10 Labs: Lab Results 10/01/24 10/01/24 Range/Units 13:10 13:11 WBC 10.7 H (4.5-10.0) K/mm3 RBC 3.70 L (4.6-6.20) M/mm3 Hgb 12.7 L (14.0-18.0) g/dL Hct 38.2 L (42.0-52.0) % MCV 103.2 H (80-100) fl MCH 34.3 H (26-34) pg MCHC 33.2 (32-36) g/dl RDW 12.8 (11.5-14.5) % Plt Count 277 (150-375) k/mm3 MPV 9.4 (7.4-10.4) fl Immature Gran % (Auto) 0.3 (0-0.5) % Neut % (Auto) 60.9 (45.5-73.1) % Lymph % (Auto) 20.2 (18.3-44.2) % [place] % (Auto) 13.2 H (2.6-8.5) % Eos % (Auto) 5.1 H (0-4.4) % Baso % (Auto) 0.3 (0.2-1.2) % Lymph # (Auto) 2.16 (0.9-3.2) K/mm3 [place] # (Auto) 1.4 H (0.1-0.6) K/mm3 Eos # (Auto) 0.5 H (0-0.3) K/mm3 Baso # (Auto) 0.0 (0.0-0.1) K/mm3 Abs Immat Gran (auto) 0.03 (0.00-0.031) K/mm3 Absolute Neuts (auto) 6.5 (1.3-6.7) K/mm3 Absolute Nucleated RBC 0.000 (0.0-0.012) K/mm3 Nucleated RBC % 0.0 (0.0-0.2) % D-Dimer 1.56 H (<0.48) ug/mL Sodium 137 (137-145) mmol/L Potassium 4.4 (3.4-5.0) mmol/L Chloride 101 (98-107) mmol/L Carbon Dioxide 29 (22-30) mmol/L Anion Gap 7 (4-12) mmol/L BUN 20 (9-20) mg/dL Creatinine 1.08 (0.7-1.3) mg/dL Estim Creat Clear Calc 67 ml/min Estimated GFR > 60 (59 - ) Glucose 132 H (65-110) mg/dL Calcium 9.2 (8.4-10.2) mg/dL Total Bilirubin 0.6 (0.2-1.3) mg/dL AST 35 (17-59) U/L ALT 36 (6-50) U/L Alkaline Phosphatase 105 (38-126) U/L Troponin I < 0.012 (0.000-0.034) ng/mL NT-Pro-B Natriuret Pep 2090 H (19.9-100) pg/mL Total Protein 7.0 (6.3-8.2) g/dL Albumin 3.7 (3.5-5.1) g/dL Influenza A (RT-PCR) Negative (Negative) Influenza B (RT-PCR) Negative (Negative) RSV (RT-PCR) Negative (Negative) SARS-CoV-2 RNA (RT-PCR) Negative (Negative) ABG Data ABG results: 10/01/24 13:41 Puncture Site Left brachial ABG pH 7.362 ABG pCO2 42.9 ABG pO2 59.2 L ABG PO2/FiO2 Ratio 2.82 ABG HCO3 23.8 ABG O2 Saturation 89.7 L ABG O2 Content 16.0 ABG Base Excess -1.6 A-a Gradient 39.2 Oxyhemoglobin 89.1 L Total Hemoglobin 12.8 O2 Delivery Device Room air O2 Liters/Min 0.0 FiO2 21 Attestation: I personally reviewed and interpreted this ABG as follows: Interpretation: non gap Imaging Data Radiologist's impression: Impressions Chest X-Ray 10/01/24 14:13 IMPRESSION: Cardiomegaly with highly suggestive cardiac decompensation and pulmonary edema. Pneumonitis is not excluded. Possible opacification in the left lung base is seen which may indicate atelectasis versus pneumonia. Chest CTA 10/01/24 14:15 IMPRESSION: 1. No pulmonary embolism. 2. No acute cardiopulmonary pathology.Paraseptal emphysematous changes are seen in the upper lobes of the lungs. 3. Fat infiltration of the liver. 4. Nodules in the lungs unchanged from previous examination. ECG Data EKG #1: Attestation: I personally reviewed and interpreted this ECG as follows: ECG completion date: 10/01/24 ECG completion time: 13:07 Prior ECG tracings: available for review (PRevious EKG also showed similar depression in V6 and slightly appreciated in V5) Interpretation: Sinus bradycardia at a rate of 54 beats per minute. IA interval 160. QRS 106. QT/QTC 443/430. Good R-wave progression across the precordial leads. Incomplete RBBB given QRS less [id number]; RSR' M-shaped pattern in V1-V3; to a lesser degree, wide, slurred S wave in lateral leads (I, aVL, V5-6). Patient does have some slight ST depression in V6 though not is appreciated in contiguous leads V5. Discharge Plan Discharge Clinical Impression: Anemia, macrocytic, Shortness of breath, Emphysema lung Patient Disposition: Home Condition: Stable Instructions: Antibiotic Form, Emphysema (DC), Anemia (ED), Shortness of Breath (ED) Additional Instructions: As we discussed, your CT scan is concerning for possible emphysema. Continue taking all of your other medications as prescribed and a course of steroids, inhaler, and antibiotic have been prescribed as well. Follow-up with primary care physician and your orthopedic surgeon. Return to the emergency department with any new, worsening, unmanaged symptoms Patient Language: Kazakh Prescriptions: New albuterol sulfate 90 mcg/actuation HFA aerosol inhaler 1 inh inhalation QID PRN (Reason: shortness of breath or wheezing) Qty: 6.7 0RF prednisone 20 mg tablet 40 mg PO DAILY 4 Days Qty: 8 0RF Rx Instructions: start 10/02; received first dose in ED 10/01; take before 9am if possible azithromycin 250 mg tablet 250 mg PO DAILY 4 Days Qty: 4 0RF Rx Instructions: start on day 2 of therapy (10/01/24) No Action PreserVision AREDS 2,148 mcg-113 mg-45 mg-17.4mg tablet 2 tablet PO BID Rx Instructions: administer with AM and PM meals celecoxib [Celebrex] 200 mg Capsule 200 mg PO DAILY Qty: 10 0RF acetaminophen 325 mg Tablet 650 mg PO Q4H Qty: 90 0RF polyethylene glycol 3350 [Miralax] 17 gram Powder In Packet 17 g PO QAM Qty: 30 0RF sennosides-docusate sodium [Senokot-S] 8.6-50 mg Tablet 2 tab PO BID Qty: 60 0RF doxycycline hyclate 100 mg Tablet 100 mg PO Q12HR Qty: 28 0RF oxycodone 5 mg Tablet 5 mg PO Q4H PRN (Reason: Pain Rated 7-10) Qty: 40 0RF Eliquis 2.5 mg Tablet 2.5 mg PO Q12HR Qty: 70 0RF propranolol 80 mg tablet 80 mg PO BID Qty: 180 2RF tamsulosin 0.4 mg capsule See Rx Instructions .ROUTE .COMPLEX Qty: 90 3RF Dose Instruction: TAKE 1 CAPSULE BY MOUTH DAILY Rx Instructions: TAKE 1 CAPSULE BY MOUTH DAILY Follow-up/Referrals: Mesfin Bolden MD [Physician] - Henry Wharton MD [Primary Care Provider] - Stand Alone Forms: Work/School Release IP Time of Disposition: 15:42
[2024-10-01 13:17] LABS: Basophils Percent Auto 0.3 % (0.2-1.2); Eosinophils Absolute Auto 0.5 K/mm3 (0-0.3); Eosinophils Percent Auto 5.1 % (0-4.4); Hematocrit 38.2 % (42.0-52.0); Hemoglobin 12.7 g/dL (14.0-18.0); Immature Granulocyte Absolute 0.03 K/mm3 (0.00-0.031); Immature Granulocyte Percent A 0.3 % (0-0.5); Lymphocytes Absolute Auto 2.16 K/mm3 (0.9-3.2); Lymphocytes Percent Auto 20.2 % (18.3-44.2); Mean Corpuscular HGB Conc 33.2 g/dl (32-36); Mean Corpuscular Hemoglobin 34.3 pg (26-34); Mean Corpuscular Volume 103.2 fl (80-100); Mean Platelet Volume 9.4 fl (7.4-10.4); Monocytes Absolute Auto 1.4 K/mm3 (0.1-0.6); Monocytes Percent Auto 13.2 % (2.6-8.5); Neutrophils Absolute Auto 6.5 K/mm3 (1.3-6.7); Neutrophils Percent Auto 60.9 % (45.5-73.1); Platelet Count Result 277 k/mm3 (150-375); Red Cell Distribution Width 12.8 % (11.5-14.5); White Blood Count 10.7 K/mm3 (4.5-10.0)
--- OUTSIDE RECORDS SUMMARY | 2024-10-01 13:20 | XMS_ITS | Clinical Summary ---
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
--- OUTSIDE RECORDS SUMMARY | 2024-10-01 13:20 | XMS_ITS | Referral Summary ---
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
[2024-10-01 13:27] LABS: Alanine Aminotransferase 36 U/L (6-50); Albumin Level 3.7 g/dL (3.5-5.1); Alkaline Phosphatase 105 U/L (38-126); Anion Gap 7 mmol/L (4-12); Aspartate Amino Transferase 35 U/L (17-59); Bilirubin,Total 0.6 mg/dL (0.2-1.3); Blood Urea Nitrogen 20 mg/dL (9-20); Calcium 9.2 mg/dL (8.4-10.2); Carbon Dioxide 29 mmol/L (22-30); Chloride 101 mmol/L (98-107); Estimated CRCL calculation 67 ml/min; Estimated Glomerular Filt Rate > 60; Glucose 132 mg/dL (65-110); Potassium 4.4 mmol/L (3.4-5.0); Sodium 137 mmol/L (137-145)
[2024-10-01] MEDS: ALBUTEROL SULFATE NEB 2.5 MG/3 ML INH INHALATION (13:31)
[2024-10-01 13:35] LABS: D Dimer 1.56 ug/mL (<0.48)
[2024-10-01 13:39] LABS: NT Pro B Type Natriuretic Pept 2090 pg/mL (19.9-100); Troponin I < 0.012 ng/mL (0.000-0.034)
[2024-10-01 13:49] LABS: Alveolar/Arterial O2 Gradient 39.2 mmHg; Base Excess ABG -1.6 mEq/l (+/-2.0); Fractional Inspired Oxygen 21 %; HCO3 ABG 23.8 mEq/l (22.0-26.0); Oxygen Saturation ABG 89.7 % (95.0-100.0); Oxyhemoglobin 89.1 % THb (90.0-100.0); PCO2 ABG 42.9 mmHg (35.0-45.0); PO2 ABG 59.2 mmHg (80.0-100.0); PO2 FiO2 Ratio Arterial Blood 2.82 %; Total Hemoglobin 12.8 g/dL (12.0-18.0); pH ABG 7.362 (7.350-7.450)
[2024-10-01 13:50] LABS: Device ROOM AIR; Site Drawn LEFT BRACHIAL
[2024-10-01 13:54] LABS: Influenza A QL RT-PCR Negative (Negative); Influenza B QL RT-PCR Negative (Negative); RSV RNA, RT-PCR Negative (Negative); SARS-CoV-2 RNA PCR Negative (Negative)
[2024-10-01] MEDS: IPRATROPIUM 0.5 MG/ALBUTEROL SULFATE 2.5 MG AMPUL.NEB 3 ML INHALATION (14:50)
[2024-10-01] MEDS: predniSONE 20 MG TABLET 60 MG PO (15:06)
[2024-10-01] MEDS: AZITHROMYCIN 250 MG TABLET 500 MG PO (15:07)
--- NOTE | 2024-10-01 15:28 | PC.NURSE ---
patient oxygen saturation was 93 while ambulating
== END 2024-10-01 16:00 | disposition home or self-care (01) ==
PROVIDERS: Emergency Provider Student in an Organized Health Care Education/Training Program; PCP Family Medicine Adolescent Medicine
DX: J43.9 Emphysema, unspecified (principal); R06.02 Shortness of breath; D53.9 Nutritional anemia, unspecified; Z20.822 Contact with and (suspected) exposure to COVID-19; I70.0 Atherosclerosis of aorta; N40.0 Benign prostatic hyperplasia without lower urinary tract symptoms; I10 Essential (primary) hypertension; R73.03 Prediabetes; Z96.642 Presence of left artificial hip joint; Z87.891 Personal history of nicotine dependence; Z86.0100 Personal history of colon polyps, unspecified; Z89.022 Acquired absence of left finger(s); Z98.42 Cataract extraction status, left eye; Z98.41 Cataract extraction status, right eye; Z79.899 Other long term (current) drug therapy; Z79.01 Long term (current) use of anticoagulants; R00.1 Bradycardia, unspecified; I45.10 Unspecified right bundle-branch block; R94.31 Abnormal electrocardiogram [ECG] [EKG]
CPT/HCPCS: 36415; 36600; 71046; 71275; 80053; 82805; 83880; 84484; 85018; 85025; 85380; 87637; 93005; 94640; 99284; A9270; J7512; Q9967

== ENCOUNTER 2024-11-02 08:12 | Outpatient (CLI) | payer MEDICARE, SELFPAY ==
--- OUTSIDE RECORDS SUMMARY | 2024-11-02 08:21 | XMS_ITS | Clinical Summary ---
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
--- OUTSIDE RECORDS SUMMARY | 2024-11-02 08:21 | XMS_ITS | Referral Summary ---
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
--- NOTE | 2024-11-02 16:24 | WPDPFTINT ---
PFT Procedure Performed PFT Procedure Performed Flow Vol Loop Spirometry w/o Bronchodil PFT Interpretation This is a pulmonary function test with spirometry, plethysmography and diffusing capacity. The test was performed and results interpreted in accordance with the 2019 and 2005 ATS/ERS Task Force guidelines respectively using the Global Lung Function Initiative-2012 reference equations. Patient demonstrated good effort and cooperation. Reproducibility criteria were met. The quality of the spirometry maneuver was Grade A. Findings: Spirometry: there is decreased maximal expiratory airflow at low lung volumes. The contour the inspiratory flow tracing is normal. The FVC is 3.13 L, 75% predicted. The FEV1 is 2.05 L, 65% predicted. The FEV1: FVC ratio is 66. In comparison to previous spirometry on 10/12/2020, the FVC is unchanged from 3.36 L to 3.13 L. The FEV1 is unchanged from 2.37 L to 2.05 L. Impression: The FEV1 is less than the lower limit of normal and the FEV1: FVC ratio is greater than the lower limit of normal consistent with Preserved Ratio Impaired Spirometry (PRISm) with a normal FVC. In comparison to previous spirometry on 10/12/2020 there has been no significant change in the pre bronchodilator FVC or FEV1. Clinical correlation is recommended.
== END 2024-11-02 08:13 | disposition home or self-care (01) ==
PROVIDERS: PCP Family Medicine Adolescent Medicine; Visit Provider Family Medicine Adolescent Medicine
DX: R94.2 Abnormal results of pulmonary function studies (principal); J43.9 Emphysema, unspecified
CPT/HCPCS: 94375

== ENCOUNTER 2025-02-08 08:03 | Outpatient (CLI) | payer MEDICARE, SELFPAY ==
--- OUTSIDE RECORDS SUMMARY | 2025-02-08 08:08 | XMS_ITS | Clinical Summary ---
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
--- NOTE | 2025-02-08 12:17 | WPDSIXMINUTE ---
Six Minute Walk Procedure Procedure Performed Pulmonary Stress Test (6 min walk) Six Minute Walk Six Minute Walk: This is a 6 minute walk test. The test was performed and interpreted in accordance with the 2014 ERS/ATS task force guidelines. Findings: The patient's resting room air oxygen saturation measured by pulse oximetry was 96%, the heart rate was 47 bpm, and the modified Benson dyspnea score was 0. Patient ambulated for 305 meters and oxygen saturation remained 94 to 95%. At the end of the study the heart rate was 107 bpm and the modified Benson dyspnea score was 1. The patient did not qualify for supplemental oxygen at rest or with ambulation. There are no prior studies for comparison.
--- NOTE | 2025-02-08 12:21 | WPDPFTINT ---
PFT Procedure Performed PFT Procedure Performed Spirometry with Pre/Post Bronchodilator Plethysmography (Lung Vol) Diffusing Cap (DLCO) Flow Vol Loop PFT Interpretation This is a pulmonary function test with pre and post-bronchodilator spirometry, plethysmography and diffusing capacity. The test was performed and results interpreted in accordance with the 2019 and 2005 ATS/ERS Task Force guidelines respectively using the Global Lung Function Initiative-2012 reference equations. Patient demonstrated good effort and cooperation. Reproducibility criteria were met. The quality of the pre bronchodilator spirometry maneuver was Grade A and post bronchodilator spirometry maneuver was Grade A. Findings: Spirometry: The contour the inspiratory and expiratory flow tracing are normal. The pre bronchodilator FVC is 2.91 L, 73% predicted. The pre bronchodilator FEV1 is 1.98 L, 65% predicted. The pre bronchodilator FEV1: FVC ratio 68%. The post bronchodilator FVC is 2.93 L, representing 1% increase. The post bronchodilator FEV1 was 1.92 L, representing a 3% decrease. The post bronchodilator FEV1: FVC ratio is 66%. Plethysmography: The total lung capacity is 6.04 L, 89% predicted. The functional residual capacity is 2.72 L, 75% predicted. The residual volume is 2.69 L, 111% predicted. Diffusing capacity: The diffusing capacity unadjusted for hemoglobin and carboxyhemoglobin is 14.9, 59% predicted. The diffusing capacity adjusted for alveolar volume is 3.75, 95% predicted. In comparison to previous spirometry performed on 11/02/2024, in which only pre bronchodilator spirometry was performed, the pre bronchodilator FVC is unchanged from 3.13 L to 2.91 L. The pre bronchodilator FEV1 is unchanged from 2.05 L to 1.98 L. In comparison to previous pulmonary function testing on 10/12/2020, the total lung capacity has increased from 4.93 L to 6.04 L. The functional residual capacity is unchanged from 2.54 L to 2.72 L. The residual volume has increased from 1.57 L to 2.69 L. The diffusing capacity unadjusted for hemoglobin and carboxyhemoglobin is unchanged from 14.3 to 14.9. The diffusing capacity adjusted for alveolar volume is unchanged from 3.38 to 3.75. Impression: The FEV1 is less than 80% predicted and the FEV1: FVC ratio is greater than the lower limit of normal consistent with Preserved Ratio Impaired Spirometry (PRISm) with a low FVC. There is no significant improvement after inhaling a single dose of albuterol. The lung volumes are normal. The diffusing capacity unadjusted for hemoglobin and carboxyhemoglobin is moderately decreased and normalizes when adjusted for alveolar volume. In comparison to the most recent pulmonary function testing data, there has been a greater than anticipated time dependent increase in the total lung capacity and residual volume. There has been no significant change in the FVC, FEV1, functional residual capacity or diffusing capacity. Clinical correlation is recommended.
== END 2025-02-08 08:04 | disposition home or self-care (01) ==
LOC: ANHPFT 08:05
PROVIDERS: PCP Family Medicine Adolescent Medicine; Visit Provider Internal Medicine Critical Care Medicine
DX: J43.9 Emphysema, unspecified (principal); Z87.891 Personal history of nicotine dependence
CPT/HCPCS: 94060; 94618; 94726; 94729

== ENCOUNTER 2025-05-03 01:52 | Day surgery (SDC) | payer MEDICARE, SELFPAY ==
--- NOTE | 2025-04-21 11:09 | PC.NURSE ---
[facility] has started construction of its new state of the art ER which will open Spring 2026. With this, we anticipate parking may be a challenge for some our surgical patients and families. Parking spaces are limited but are available for all Surgical, obstetrics, and ER patients sharing this lot. If you arrive and find you are having a hard time finding a parking space, please note that we understand the challenges, please drive around the hospital and park near Hospital Entrance 1. When you enter this entrance, you can ask a volunteer to direct or take you back to the surgical waiting area to check in. We appreciate everyone?s understanding of these expected challenges while we build for your future. Report to the Outpatient Waiting Room, entrance under the green pavilion located off [address], at time __10 AM on date _05/03/25 . Planned Procedure Time: __1200 NOON .? Time changes happen often and if your time is changed the preop area will call you the afternoon before. - You and your visitor will be asked to self-screen and do not enter if you have any COVID symptoms. Please call surgeon if you need to reschedule. - A mask is optional within the hospital at this time. Patients may have clear liquids (water, carbonated beverages, clear teas, apple juice) until 3 hours prior to surgery( 9AM) with a maximum of 20 ounces. - No food from midnight until time of surgery and no smoking, or chewing tobacco (or any form of nicotine). No chewing gum, candy or mints. Take only the following medications with a SIP of water on the morning of surgery: ___PROPRANOLOL DO NOT STOP ANY OF YOUR OTHER PRESCRIPTION MEDICATIONS PRIOR TO SURGERY EXCEPT THE FOLLOWING Hold all vitamins and supplements for 3 days per anesthesiologist.04/29/25 Medications to discontinue per physician NONE Please no make-up, nail persian, hairspray, perfume, deodorant, or body powder the day of surgery.? No jewelry (including any body piercings) or valuables the day of surgery, leave them at home.? Please take a shower or bath the night before, or the morning of, surgery with an antibacterial soap.? Wear comfortable, loose fitting clothing.? Children are encouraged to wear pajamas. - Jewelry must be removed prior to entering the operating room.? Rings and piercings that are not removed may be cut off. - The hospital will not accept responsibility for valuables.? - Please leave all valuables, including medications, at home the day of surgery. If you are going home after surgery, a licensed catshovel driver must drive you home.? - NO public transportation without another adult if you receive anesthesia. - We recommend that an adult stay with you for 24 hours following discharge. - We also recommend that you do not drive, make important decision, drink alcoholic beverages, or take any drugs that were not prescribed by your health care provider for at least 24 hours after your discharge time. For Pediatric surgeries, we recommend two adults accompany the child home. Follow any additional instructions given to you from your surgeon. Telephone instructions given to _PATIENT and asked if any additional questions and then verbalized understanding. Patient advised to call surgeon office or pre surgery nurse liaison [phone] if any additional questions.
[2025-04-21 11:13] VITALS: BMI 34.0
[2025-05-03] VITALS (7 sets, daily range): BP systolic 143–168; BP diastolic 53–98; PULSE 53–58; RESP 12–18; TEMP 36.7–36.8; O2SAT 98–100
--- NOTE | 2025-05-03 10:48 | WPDHPUPDATE1 ---
History and Physical Update Update Date/Time: 05/03/25 10:48 History and Physical has been reviewed, including an updated exam of the patient. There are NO changes in the patient's condition. Risks, benefits, and alternatives have been discussed and questions answered. Patient agrees to proceed with procedure.
--- NOTE | 2025-05-03 11:18 | WPDANESEPPF ---
Anes - Initial Pre Proc Eval Procedure: Operation Date: 05/03/25 12:00 Proposed Procedures p Excisional Biopsy Chest Wall Cyst - Danielle Blandon MD Date/Time: 05/03/25 11:18 Surgeon: Danielle Blandon MD Pre Op Diagnosis: chest wall cyst Patient Data Age: 74 Gender: M Height: 1.75 m Weight: 104.35 kg Allergies Allergy/AdvReac Type Severity Reaction Status Date / Time No Known Allergies Allergy NONE Verified 05/03/25 11:17 Home Medications ?Medication ?Instructions ?Recorded ?Confirmed ?Type vitamins A,C,R-ibyl-rkxdzp 2,148 2 tablet PO BID 06/13/24 04/21/25 History mcg-113 mg-45 mg-17.4 mg tablet (PreserVision AREDS) propranolol 80 mg tablet 80 mg PO BID #180 tabs 10/31/24 05/03/25 Rx albuterol sulfate 90 mcg/actuation 1 inh inhalation Q4H PRN shortness 04/13/25 04/21/25 Rx aerosol inhaler (Ventolin HFA) of breath or wheezing #8.5 grams methylprednisolone 4 mg tablets in See Rx Instructions PO PER PKG DIR 04/13/25 04/21/25 Rx a dose pack #21 ea tamsulosin 0.4 mg capsule See Rx Instructions .Route 05/01/25 Rx .COMPLEX #90 caps Patient hx anesthesia problems: none Family hx anesthesia problems: none Results Review: All pre-operative results and documents have been reviewed as part of the pre-operative evaluation. [facility] Past Medical History Medical History Aortic atherosclerosis (08/2020) CT 09/09 Prediabetes Benign prostatic hyperplasia Colon polyps Amputation of digit of left hand Surgical History Surgical History History of bilateral cataract extraction History of appendectomy History of repair of left rotator cuff (2015) History of open reduction and internal fixation (ORIF) procedure (2007) repair left wrist fracture History of colonoscopy with polypectomy History of total left hip arthroplasty (09/27/24) Family History Family History Sibling Leukemia Social History Social History Social History: Surrogate medical decision maker: Chikis Jaffe, spouse. Code status: Full code. Smoking packs per day: 0.5 Smoking cigarettes per day: 10.0 Years smoked: 50 Smoking pack-years: 25.00 Smoking status: Current every day smoker Tobacco type: cigarettes Second hand tobacco smoke exposure: No Smoking end date: 04/22/24 Alcohol intake: current Drinks per week: 1 Substance use: never Substance use type: does not use Do You Feel Safe in your Home?: Yes Lack of Transportation: No Lack of Food: Never True Current Housing: I Have Housing Concerned About Future Housing: No Difficulty Paying Gas/Electric Bills: No Difficulty Paying for Meds: No Currently Unemployed: No Education: Associate Degree Difficulty w/ Childcare or Family Care: No Living arrangements: with family Additional living arrangements comments: Lives with spouse in [place]. 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 Spiritual care concerns: No Anes - Eval Final PreProcedure Day of Procedure 05/03/25 11:18 Patient weight: obese Heart: regular rate and rhythm Lungs: clear to auscultation Airway: Mallampati scale class II Neurological: alert and oriented Last oral intake: >/= 8 hours ASA classification: III Emergent: no Anesthetic plan: proceed Anesthesia type and monitoring: general GIVS and standard monitoring Results Review: All pre-operative results and documents have been reviewed as part of the pre-operative evaluation. Informed Consent: The patient's anesthetic plan and its attendant risks and benefits were discussed with the patient/family/POA. Questions were solicited and answers provided to the satisfaction of the patient/family/POA.
[2025-05-03] MEDS: LACTATED RINGERS 1,000 ML 30 ML IV CONT ×2 (11:22→12:51)
[2025-05-03] MEDS: ceFAZolin 2 GM in SODIUM CHLORIDE 0.9% IV 50 ML 100 ML IVPB (12:06)
[2025-05-03] MEDS: BUPIVACAINE/EPINEPHRINE 0.5% 50 ML VIAL 30 ML INFILTRATE (12:25)
--- NOTE | 2025-05-03 12:34 | S_PTH ---
PATIENT: Kvein Jaffe LOC: [facility]#:[id number] AGE/SX: 74/M ROOM: RE05/03/[address]: Danielle Blandon MD : 1950 BED: DIS: 05/03/2025 SPEC #: [id number] RECD: 05/03/25 13:28 STATUS: ADRIANA REQ #: [id number] FRANCOISE: 05/03/25 12:[address]: Danielle Blandon DEPT: [facility] Surgical RECD BY: Yanique Meyers ENTERED: 05/03/25 13:28 SP TYPE: Surgical OTHR DR: Henry Wharton MD Tissues: A - Cyst Procedures: Hematoxylin and Eosin Stain Gross and Microscopic Level 4
--- NOTE | 2025-05-03 13:06 | W.PM.PROC2 ---
Procedure Note - Detailed Date of Procedure 05/03/25 Pre-op Diagnosis chest wall cyst Post-op Diagnosis Same Procedure Performed excisional biopsy chest wall cyst measuring 6 x 5 cm Surgeon Danielle Blandon MD Anesthesia General and Local Indications 74-year-old male with a large mid chest wall cyst most consistent with large sebaceous cyst. Patient reports occasional drainage infection. Findings Ruptured sebaceous cyst mid chest wall measuring 6 x 5 cm Description of Procedure The patient was taken the operating room and placed in the supine position. After adequate induction of general anesthesia, the patient was prepped and draped in the normal sterile fashion. A time-out was then done to verify the patient's identity, as well as the procedure being performed. I first locally anesthetize the area around the cyst in the mid chest wall. I then made an elliptical incision in the dermis over the cyst encompassing an open area that had previously been draining. This was carried down to the subcutaneous tissue. A large sebaceous cyst was encountered at this point. Using blunt dissection with the hemostat and the Bovie cautery, I was able to completely get around the cyst. Upon manipulation and trying to get the cyst out of the incision, and anterior rupture was noted. We were then able to manipulate the cyst and excise it in full. The cyst was noted to measure approximately 6 x 5 cm. It will now be sent to pathology for further review. We then copiously irrigated the cavity and further local anesthetic was placed. The subcutaneous tissue was then closed with 3-0 Vicryl suture. The skin was closed with 4-0 Monocryl subcuticular suture. The patient tolerated the procedure well and was extubated postoperatively. He will be sent to the recovery room in stable condition. Estimated Blood Loss 5 Pathology Yes Complications No immediate complications Condition Stable Disposition PACU [facility] Billing Surgery - Charge Forward: Surgery Billing
== END 2025-05-03 14:30 | disposition home or self-care (01) ==
PROVIDERS: PCP Family Medicine Adolescent Medicine; Visit Provider Surgery
PROC: (CPT 11406; principal; 2025-05-03 12:00)
DX: L72.0 Epidermal cyst (principal); I10 Essential (primary) hypertension; R73.03 Prediabetes; N40.0 Benign prostatic hyperplasia without lower urinary tract symptoms; I70.0 Atherosclerosis of aorta; F17.210 Nicotine dependence, cigarettes, uncomplicated; E66.9 Obesity, unspecified; Z68.33 Body mass index [BMI] 33.0-33.9, adult; Z79.51 Long term (current) use of inhaled steroids; Z98.890 Other specified postprocedural states; Z89.022 Acquired absence of left finger(s); Z86.0100 Personal history of colon polyps, unspecified; Z80.6 Family history of leukemia
CPT/HCPCS: 11406; 12032; 88305; J0690; J1100; J2003; J2250; J2405; J2704; J3010; J7120